=== PATIENT | female | born 1945 | race Caucasian/White ===

== ENCOUNTER → 2017-10-01 | Outpatient (CLI) | payer MEDICARE ==
--- NOTE | 2017-10-02 11:38 | MM ---
Reason for exam: screening (asymptomatic). Last mammogram was performed 1 year and 3 months ago. History: Patient is postmenopausal. Benign left mammotome panel of the left breast, March 24, 2005. Took hormonal contraceptives for 12 years beginning at age 21. Physical Findings: A clinical breast exam by your physician is recommended on an annual basis and results should be correlated with mammographic findings. MG 3D Screening Mammo W/Cad Bilateral CC and MLO view(s) were taken. Prior study comparison: June 20, 2016, bilateral MG 3d screening mammo w/cad. March 30, 2015, bilateral MG screening mammo w CAD. There are scattered fibroglandular densities. Previous mammotome biopsy in the left breast. No significant changes when compared with prior studies. ASSESSMENT: Benign, BI-RAD 2 RECOMMENDATION: Routine screening mammogram of both breasts in 1 year.
== END | disposition home or self-care (01) ==
LOC: RADMAMWWP 10:37
PROVIDERS: ATTEND Internal Medicine
DX: Z12.31 Encounter for screening mammogram for malignant neoplasm of breast (principal)
CPT/HCPCS: 77063; 77067

== ENCOUNTER → 2019-02-09 | Outpatient (CLI) | payer MEDICARE ==
[2019-02-09 10:57] LABS: Basophils % (A) 1 %; Eosinophils # (A) 0.1 k/uL (0-0.7); Eosinophils % (A) 2 %; HCT 45.2 % (34.0-46.0); HGB 14.5 gm/dL (11.4-16.0); Lymphocytes # (A) 0.6 k/uL (1.0-4.8); Lymphocytes % (A) 11 %; MCH 29.5 pg (25.0-35.0); MCV 92.1 fL (80.0-100.0); Mean Platelet Volume 7.9; Monocytes # (A) 0.3 k/uL (0-1.0); Monocytes % (A) 6 %; Neutrophils # (A) 4.3 k/uL (1.3-7.7); Neutrophils % (A) 80 %; Platelet Count 171 k/uL (150-450); RBC 4.91 m/uL (3.80-5.40); WBC 5.3 k/uL (3.8-10.6)
[2019-02-09 11:11] LABS: Albumin 4.5 g/dL (3.5-5.0); Calcium 9.9 mg/dL (8.4-10.2); Potassium 4.4 mmol/L (3.5-5.1); Total Bilirubin 0.6 mg/dL (0.2-1.3)
[2019-02-09 11:27] LABS: T4, Free (Free Thyroxine) 1.29 ng/dL (0.78-2.19)
--- NOTE | 2019-02-10 13:27 | MM ---
Reason for exam: screening (asymptomatic). Last mammogram was performed 1 year and 4 months ago. History: Patient is postmenopausal. Benign left mammotome panel of the left breast, March 24, 2005. Took hormonal contraceptives for 12 years beginning at age 21. Physical Findings: A clinical breast exam by your physician is recommended on an annual basis and results should be correlated with mammographic findings. MG 3D Screening Mammo W/Cad Bilateral CC and MLO view(s) were taken. Prior study comparison: October 01, 2017, bilateral MG 3d screening mammo w/cad. June 20, 2016, bilateral MG 3d screening mammo w/cad. There are scattered fibroglandular densities. No suspicious abnormality. Left biopsy marker noted. No significant changes when compared with prior studies. ASSESSMENT: Negative, BI-RAD 1 RECOMMENDATION: Routine screening mammogram of both breasts in 1 year.
== END | disposition home or self-care (01) ==
LOC: RADMAMWWP 10:09
PROVIDERS: ATTEND Internal Medicine
DX: Z12.31 Encounter for screening mammogram for malignant neoplasm of breast (principal); Z00.00 Encounter for general adult medical examination without abnormal findings; E55.9 Vitamin D deficiency, unspecified
CPT/HCPCS: 77063; 77067; 80053; 80061; 82306; 84439; 84443; 85025

== ENCOUNTER → 2019-03-09 | Outpatient (CLI) | payer MEDICARE | END | disposition home or self-care (01) | LOC: LABWHC1 11:43 | PROVIDERS: ATTEND Internal Medicine | DX: E55.9 Vitamin D deficiency, unspecified (principal) | CPT/HCPCS: 36415; 82306 ==

== ENCOUNTER → 2020-05-03 | Outpatient (CLI) | payer MEDICARE ==
[2020-05-03 11:26] LABS: Albumin 4.6 g/dL (3.5-5.0); Calcium 9.8 mg/dL (8.4-10.2); Potassium 4.5 mmol/L (3.5-5.1); Total Bilirubin 0.6 mg/dL (0.2-1.3); Total Protein 7.4 g/dL (6.3-8.2)
[2020-05-03 11:42] LABS: T4, Free (Free Thyroxine) 1.48 ng/dL (0.78-2.19)
[2020-05-03 12:05] LABS: Basophils % (A) 1 %; Eosinophils # (A) 0.1 k/uL (0-0.7); Eosinophils % (A) 2 %; HCT 47.6 % (34.0-46.0); HGB 14.8 gm/dL (11.4-16.0); Lymphocytes # (A) 0.8 k/uL (1.0-4.8); Lymphocytes % (A) 14 %; MCH 29.2 pg (25.0-35.0); MCHC 31.1 g/dL (31.0-37.0); MCV 94.1 fL (80.0-100.0); Mean Platelet Volume 8.5; Monocytes # (A) 0.3 k/uL (0-1.0); Monocytes % (A) 6 %; Neutrophils # (A) 4.4 k/uL (1.3-7.7); Neutrophils % (A) 76 %; Platelet Count 186 k/uL (150-450); RBC 5.06 m/uL (3.80-5.40); WBC 5.8 k/uL (3.8-10.6)
--- NOTE | 2020-05-04 14:51 | MM ---
Reason for exam: screening (asymptomatic). Last mammogram was performed 1 year and 3 months ago. History: Patient is postmenopausal. Benign left mammotome panel of the left breast, March 24, 2005. Took hormonal contraceptives for 12 years beginning at age 21. Physical Findings: A clinical breast exam by your physician is recommended on an annual basis and results should be correlated with mammographic findings. MG 3D Screening Mammo W/Cad Bilateral CC and MLO view(s) were taken. Prior study comparison: February 09, 2019, bilateral MG 3d screening mammo w/cad. October 01, 2017, bilateral MG 3d screening mammo w/cad. There are scattered fibroglandular densities. Previous mammotome biopsy in the left breast. No significant changes when compared with prior studies. ASSESSMENT: Benign, BI-RAD 2 RECOMMENDATION: Routine screening mammogram of both breasts in 1 year.
== END | disposition home or self-care (01) ==
LOC: RADMAMWWP 09:05
PROVIDERS: ATTEND Internal Medicine
DX: Z12.31 Encounter for screening mammogram for malignant neoplasm of breast (principal); Z00.00 Encounter for general adult medical examination without abnormal findings; E78.5 Hyperlipidemia, unspecified; I10 Essential (primary) hypertension
CPT/HCPCS: 36415; 77063; 77067; 80053; 84439; 84443; 85025

== ENCOUNTER 2020-11-12 16:25 | Emergency (ER) | payer MEDICARE ==
[2020-11-12 16:39] VITALS: BP 156/76; PULSE 105; RESP 18; TEMP 98.2
[2020-11-12] MEDS ORDERED: LIDOCAINE 1% INJ 10MG/ML (20 ML MDV) SQ ONE (17:01)
--- NOTE | 2020-11-12 17:50 | ED ---
Skin/Abscess/FB HPI - General Chief complaint: Skin/Abscess/Foreign Body Stated complaint: possible insect bite Time Seen by Provider: 11/12/20 16:42 Source: patient Mode of arrival: ambulatory Limitations: no limitations - History of Present Illness Initial comments: Patient is a 74-year-old female presenting to the emergency Department with complaints of a possible insect bite of her right hand. Patient states she was working in her garden when she got done and came into the house, she took off her glove and noticed a spot of blood on her right hand. She states she noticed a single puncture wound in the area, she did wash her hands with soap and water and was applying topical antibiotic. She states she went into the ER that evening, at a different hospital, they put her on Keflex to prevent possible infection. She has been taking Keflex 4 times a day for the last 4 days, she states she came in for reevaluation today because she's been having increased bruising and some mild swelling but spreading on her right hand. She denies any fevers or chills, she denies only pain in one spot on her right hand. She denies any spreading erythema. She is not on blood thinners. She denies any nausea or vomiting. She states she's also been taking Benadryl and Tylenol as needed for any discomfort. She does have history of arthritis in her hands and states she feels like her hands are a little bit more achy than usual. She has no further complaints at this time. - Related Data Previous Rx's Medication Instructions Recorded Cephalexin [Keflex] 500 mg PO Q6HR 5 Days #20 cap 11/12/20 Allergies Allergy/AdvReac Type Severity Reaction Status Date / Time ibuprofen [From Motrin] AdvReac Anaphylaxis Verified 11/12/20 16:39 Penicillins AdvReac Anaphylaxis Verified 11/12/20 16:39 prednisone AdvReac Hallucinati Verified 11/12/20 16:39 ons Review of Systems ROS Statement: Those systems with pertinent positive or pertinent negative responses have been documented in the HPI. ROS Other: All systems not noted in ROS Statement are negative. Past Medical History Past Medical History: COPD, Hyperlipidemia, Hypertension History of Any Multi-Drug Resistant Organisms: None Reported Past Surgical History: Hysterectomy Past Psychological History: No Psychological Hx Reported Smoking Status: Never smoker Past Alcohol Use History: None Reported Past Drug Use History: None Reported General Exam - General Exam Comments Initial Comments: GENERAL: Patient is well-developed and well-nourished. Patient is nontoxic and in no acute distress. HEAD: Atraumatic, normocephalic. EYES: Pupils equal round and reactive to light, extraocular movements intact, sclera anicteric, conjunctiva are normal. Eyelids were unremarkable. ENT: Nares patent, oropharynx clear without exudates. Moist mucous membranes. NECK: Normal range of motion, supple without lymphadenopathy or JVD. LUNGS: Unlabored respirations. Breath sounds clear to auscultation bilaterally and equal. No wheezes rales or rhonchi. HEART: Regular rate and rhythm without murmurs, rubs or gallops. ABDOMEN: Soft, nontender, normoactive bowel sounds. No guarding, no rebound. No masses appreciated. : Deferred MUSCULOSKELETAL: Normal extremities with adequate strength and normal range of motion, no pitting or edema. No clubbing or cyanosis. NEUROLOGICAL: Patient is alert and oriented x 3. Symmetrical smile. Normal speech, normal gait. PSYCH: Normal mood, normal affect. SKIN: Warm, Dry, normal turgor. Patient has some bruising noted to the right hand, spreading into the fingers and into the thumb. There is no erythema of the hand or forearm. She does have a 1 cm cyst like area in between the web space of the first and second digit of the right hand. She states this is a area where she noticed the possible bite. This area is somewhat painful when squeezed in touch. There is no erythema of this, that does not appear to be an abscess. There is no warmth to the hand. She is neurovascular intact. Limitations: no limitations Course Vital Signs 11/12/20 16:35 Temperature 98.2 F Pulse Rate 105 H Respiratory 18 Rate Blood Pressure 156/76 O2 Sat by Pulse 95 Oximetry Procedures - Procedures Initial comment: Patient had a 1 cm cyst like structure between the webspace the first and second digits on the right hand. I did place 2 mL of 1% lidocaine and the cyst, did attempt a needle aspiration of fluid however was unsuccessful. Only blood was obtained. Patient tolerated procedure well. Medical Decision Making - Medical Decision Making Patient is a 74-year-old female here with possible insect bite to the right hand. She's been on Keflex for the last 4 days. No fevers. She does have some abnormal bruising to the right hand some very mild swelling and a 1 cm cyst like area where she was possibly bitten. I did attempt a needle aspiration is area however only blood was obtained. I do not feel like this is an abscess, I also do not feel like this is cellulitis at this time. I do recommend her following up with the manager marketing communication. She states she has seen one in the past and will call them and make an appointment. Also recommended following up with her PCP if she is not able to get into a manager marketing communication relatively soon. She will continue with her Keflex, will add on another 5 days. Return parameters were discussed with the patient she verbalized understanding. She is stable for discharge. She is in agreement with this plan of care. Case was discussed with Dr. Ramirez. Disposition Clinical Impression: Rash of hand, Insect bite of right hand Disposition: HOME SELF-CARE Condition: Stable Instructions (If sedation given, give patient instructions): Insect Bite or St ing (ED) Additional Instructions: Please return to the Emergency Department if symptoms worsen or any other concerns. I recommend continuing with Keflex, I did add on another 5 days. Please follow-up with your regular family doctor as well as manager marketing communication as discussed. Prescriptions: Cephalexin [Keflex] 500 mg PO Q6HR 5 Days #20 cap Is patient prescribed a controlled substance at d/c from ED?: No Referrals: Loan Magaña MD [Primary Care Provider] - 1-2 days Time of Disposition: 17:50
== END 2020-11-12 18:42 | disposition home or self-care (01) ==
LOC: EC 16:25
DX: S60.561A Insect bite (nonvenomous) of right hand, initial encounter (principal); R21 Rash and other nonspecific skin eruption; E78.5 Hyperlipidemia, unspecified; I10 Essential (primary) hypertension; J44.9 Chronic obstructive pulmonary disease, unspecified; Z88.0 Allergy status to penicillin; Z88.6 Allergy status to analgesic agent; Z88.8 Allergy status to other drugs, medicaments and biological substances; W57.XXXA Bitten or stung by nonvenomous insect and other nonvenomous arthropods, initial encounter
CPT/HCPCS: 99282; J2001

== ENCOUNTER → 2021-06-19 | Outpatient (CLI) | payer MEDICARE ==
[2021-06-19 15:04] LABS: Basophils % (A) 1 %; Eosinophils # (A) 0.1 k/uL (0-0.7); Eosinophils % (A) 2 %; HCT 44.3 % (34.0-46.0); HGB 14.5 gm/dL (11.4-16.0); Lymphocytes # (A) 0.7 k/uL (1.0-4.8); Lymphocytes % (A) 15 %; MCH 30.1 pg (25.0-35.0); MCHC 32.7 g/dL (31.0-37.0); MCV 92.1 fL (80.0-100.0); Monocytes # (A) 0.2 k/uL (0-1.0); Monocytes % (A) 5 %; Neutrophils # (A) 3.6 k/uL (1.3-7.7); Neutrophils % (A) 76 %; Platelet Count 167 k/uL (150-450); RBC 4.81 m/uL (3.80-5.40); RDW 12.4 % (11.5-15.5); WBC 4.8 k/uL (3.8-10.6)
[2021-06-19 15:12] LABS: ALT 23 U/L (4-34); AST 26 U/L (14-36); African American GFR (CKD) 75 (>60 ml/min/1.73 sqM); Albumin 4.5 g/dL (3.5-5.0); Albumin/Globulin Ratio 1.7; Alkaline Phosphatase 96 U/L (38-126); Anion Gap 9 mmol/L; Blood Urea Nitrogen 15 mg/dL (7-17); Calcium 9.9 mg/dL (8.4-10.2); Carbon Dioxide 28 mmol/L (22-30); Chloride 103 mmol/L (98-107); Globulin 2.7 g/dL; Glucose 103 mg/dL (74-99); Non-African American GFR(CKD) 65 (>60 ml/min/1.73 sqM); Potassium 4.2 mmol/L (3.5-5.1); Sodium 140 mmol/L (137-145); Total Bilirubin 0.6 mg/dL (0.2-1.3); Total Protein 7.2 g/dL (6.3-8.2)
[2021-06-19 15:28] LABS: T4, Free (Free Thyroxine) 1.71 ng/dL (0.78-2.19)
[2021-06-19 16:36] LABS: Erythrocyte Sedimentation Rate 7 mm/hr (0-20)
[2021-06-20 01:10] LABS: Rheumatoid Factor, Qnt <10 IU/mL (0-15)
--- NOTE | 2021-06-24 12:06 | MM ---
Reason for exam: screening (asymptomatic). Last mammogram was performed 1 year and 2 months ago. History: Patient is postmenopausal. Benign left mammotome panel of the left breast, March 24, 2005. Took hormonal contraceptives for 12 years beginning at age 21. Physical Findings: A clinical breast exam by your physician is recommended on an annual basis and results should be correlated with mammographic findings. MG 3D Screening Mammo W/Cad Bilateral CC and MLO view(s) were taken. Prior study comparison: May 03, 2020, bilateral MG 3d screening mammo w/cad. February 09, 2019, bilateral MG 3d screening mammo w/cad. There are scattered fibroglandular densities. Previous mammotome biopsy in the left breast. No significant changes when compared with prior studies. ASSESSMENT: Negative, BI-RAD 1 RECOMMENDATION: Routine screening mammogram of both breasts in 1 year.
== END | disposition home or self-care (01) ==
LOC: RADMAMWWP 13:36
PROVIDERS: ATTEND Internal Medicine
DX: Z00.00 Encounter for general adult medical examination without abnormal findings (principal); Z12.31 Encounter for screening mammogram for malignant neoplasm of breast; Z78.0 Asymptomatic menopausal state
CPT/HCPCS: 77063; 77067; 80053; 80061; 84439; 84443; 85025; 85652; 86038; 86431

== ENCOUNTER → 2022-06-23 | Outpatient (CLI) | payer MEDICARE ==
--- NOTE | 2022-06-24 18:38 | MM ---
Reason for Exam: Screening (asymptomatic). Last screening mammogram was performed 12 month(s) ago. Patient History: Menarche at age 11. First Full-Term at age 22. Hysterectomy at age 34. Postmenopausal. Hormonal Contraceptives for 12 years from age 21 until age 34. 03/24/2005, Benign Core Biopsy on the left side. Risk Values: Faby 5 year model risk: 2.1%. NCI Lifetime model risk: 4.4%. Prior Study Comparison: 02/09/2019 Bilateral Screening Mammogram, [facility]. 05/03/2020 Bilateral Screening Mammogram, [facility]. 06/19/2021 Bilateral Screening Mammogram, [facility]. Tissue Density: There are scattered fibroglandular densities. Findings: Analyzed By CAD. Microclip lateral left breast from prior biopsy. There is no suspicious group of microcalcifications or new suspicious mass in either breast. Overall Assessment: Negative, BI-RAD 1 Management: Screening Mammogram of both breasts in 1 year. 1. Patient should continue monthly self breast exams. 2. A clinical breast exam by your physician is recommended on an annual basis. 3. This exam should not preclude additional follow-up of suspicious palpable abnormalities. Electronically signed and approved by: Elise Bernal M.D. Radiologist
== END | disposition home or self-care (01) ==
LOC: RADMAMWWP 14:39
PROVIDERS: ATTEND Family Medicine
DX: Z12.31 Encounter for screening mammogram for malignant neoplasm of breast (principal); Z78.0 Asymptomatic menopausal state
CPT/HCPCS: 77063; 77067

== ENCOUNTER → 2023-05-22 | Outpatient (CLI) | payer MEDICARE ==
[2023-05-22 16:19] LABS: HCT 43.5 % (37.2-46.3); HGB 13.6 g/dL (12.0-15.0); MCHC 31.3 g/dL (32.0-37.0); MCV 89.7 FL (80.0-97.0); Mean Platelet Volume 11.6 FL (9.5-12.2); NRBC Per 100 WBC 0 X 10*3/uL (0.00-0.01); Platelet Count 191 X 10*3/uL (140-440); RBC 4.85 X 10*6/uL (4.10-5.20); RDW 12.5 % (11.5-14.5); WBC 5.94 X 10*3/uL (4.50-10.00)
[2023-05-22 17:06] LABS: ALT 17 U/L (8-44); AST 20 U/L (13-35); Blood Urea Nitrogen 19.8 mg/dL (9.0-27.0); Carbon Dioxide 26.1 mmol/L (21.6-31.8); Chloride 103 mmol/L (96-109); Chol/HDL Ratio 1.76 Ratio; Glucose 102 mg/dL (70-110); Potassium 3.9 mmol/L (3.5-5.5); Sodium 142 mmol/L (135-145); VLDL Calculation 15.02 mg/dL (5.00-40.00)
== END | disposition home or self-care (01) ==
LOC: LABWHC1 08:57
PROVIDERS: ATTEND Family Medicine
DX: I10 Essential (primary) hypertension (principal); E78.5 Hyperlipidemia, unspecified
CPT/HCPCS: 36415; 80048; 80061; 82306; 83036; 84443; 84450; 84460; 85027

== ENCOUNTER → 2023-05-30 | Outpatient (CLI) | payer MEDICARE ==
[2023-05-30 23:03] LABS: BUN/Creat Ratio 14.64 Ratio (12.00-20.00); Blood Urea Nitrogen 16.1 mg/dL (9.0-27.0); Calcium 10.1 mg/dL (8.7-10.3); Carbon Dioxide 29.8 mmol/L (21.6-31.8); Chloride 102 mmol/L (96-109); Glucose 94 mg/dL (70-110); Potassium 4.5 mmol/L (3.5-5.5); Sodium 142 mmol/L (135-145)
== END | disposition home or self-care (01) ==
LOC: LABWHC1 09:21
PROVIDERS: ATTEND Family Medicine
DX: R94.4 Abnormal results of kidney function studies (principal)
CPT/HCPCS: 36415; 80048

== ENCOUNTER → 2023-06-24 | Outpatient (CLI) | payer MEDICARE ==
[2023-06-24 15:13] LABS: BUN/Creat Ratio 16.45 Ratio (12.00-20.00); Blood Urea Nitrogen 18.1 mg/dL (9.0-27.0); Calcium 10.1 mg/dL (8.7-10.3); Carbon Dioxide 26.4 mmol/L (21.6-31.8); Chloride 102 mmol/L (96-109); Glucose 99 mg/dL (70-110); Potassium 4.1 mmol/L (3.5-5.5); Sodium 141 mmol/L (135-145)
--- NOTE | 2023-06-29 13:57 | MM ---
Reason for Exam: Screening (asymptomatic). Last screening mammogram was performed 12 month(s) ago. Patient History: Menarche at age 11. First Full-Term at age 22. Hysterectomy at age 34. Postmenopausal. Hormonal Contraceptives for 12 years from age 21 until age 34. 03/24/2005, Benign Core Biopsy on the left side. Risk Values: Faby 5 year model risk: 2.0%. NCI Lifetime model risk: 4.2%. Prior Study Comparison: 05/03/2020 Bilateral Screening Mammogram, [facility]. 06/19/2021 Bilateral Screening Mammogram, [facility]. 06/23/2022 Bilateral MG 3D screening mammo w/cad, [facility]. Tissue Density: There are scattered fibroglandular densities. Findings: Analyzed By CAD. There is no suspicious group of microcalcifications or new suspicious mass in either breast. Overall Assessment: Negative, BI-RAD 1 Management: Screening Mammogram of both breasts in 1 year. . Patient should continue monthly self-breast exams. A clinical breast exam by your physician is recommended on an annual basis. This exam should not preclude additional follow-up of suspicious palpable abnormalities. Note on Faby scores and lifetime risk: 1. A Faby score greater than 3% is considered moderate risk. If this is the case, consider specialist referral to assess eligibility for a risk reducing agent. 2. If overall lifetime risk for the development of breast cancer is 20% or higher, the patient may qualify for future screening with alternating mammogram and breast MRI. Electronically signed and approved by: Elise Bernal M.D. Radiologist
== END | disposition home or self-care (01) ==
LOC: RADMAMWWP 10:25
PROVIDERS: ATTEND Family Medicine
DX: Z12.31 Encounter for screening mammogram for malignant neoplasm of breast (principal); R94.4 Abnormal results of kidney function studies; Z78.0 Asymptomatic menopausal state
CPT/HCPCS: 77063; 77067; 80048

== ENCOUNTER 2023-07-01 16:43 | Emergency (ER) | payer MEDICARE ==
[2023-07-01] MEDS ORDERED: ACET/COD 300 MG/30 MG STARTER PACK 6 TAB BTL PO STA (17:09)
[2023-07-01 17:36] LABS: Basophils % (A) 1 %; Eosinophils # (A) 0.1 k/uL (0-0.7); Eosinophils % (A) 2 %; HCT 42.2 % (34.0-46.0); HGB 13.9 gm/dL (11.4-16.0); Lymphocytes # (A) 0.8 k/uL (1.0-4.8); Lymphocytes % (A) 14 %; MCH 29.1 pg (25.0-35.0); MCHC 32.9 g/dL (31.0-37.0); MCV 88.6 fL (80.0-100.0); Mean Platelet Volume 8.1; Monocytes # (A) 0.3 k/uL (0-1.0); Monocytes % (A) 6 %; Neutrophils # (A) 4.2 k/uL (1.3-7.7); Neutrophils % (A) 76 %; Platelet Count 179 k/uL (150-450); RBC 4.76 m/uL (3.80-5.40); RDW 12.6 % (11.5-15.5); WBC 5.5 k/uL (3.8-10.6)
[2023-07-01 17:42] LABS: ALT 20 U/L (4-34); AST 27 U/L (14-36); African American GFR (CKD) 48 (>60 ml/min/1.73 sqM); Albumin 4.3 g/dL (3.5-5.0); Alkaline Phosphatase 116 U/L (38-126); Anion Gap 14 mmol/L; Blood Urea Nitrogen 21 mg/dL (7-17); Calcium 9.7 mg/dL (8.4-10.2); Carbon Dioxide 24 mmol/L (22-30); Chloride 99 mmol/L (98-107); Glucose 96 mg/dL (74-99); Non-African American GFR(CKD) 41 (>60 ml/min/1.73 sqM); Sodium 137 mmol/L (137-145); Total Bilirubin 0.5 mg/dL (0.2-1.3)
--- NOTE | 2023-07-01 17:42 | ED ---
General Adult HPI - General Chief complaint: Neuro Symptoms/Deficit Stated complaint: Neuro symptoms Time Seen by Provider: 07/01/23 16:43 Source: patient, EMS, RN notes reviewed, old records reviewed Mode of arrival: EMS Limitations: no limitations - History of Present Illness Initial comments: This is a 77-year-old female female who presents emergency Department complaining that at about 2:45 she started having headache and she took some Tylenol and the headache went away and now there is only a very slight headache on the left side. Patient states she got anxious about the headache and she started having some tingling across her lip on both sides is some tingling in both of her hands. Patient states all the tingling has resolved and it resolved rather quickly. Patient denies any numbness or weakness. Patient denies any chest pain or difficulty breathing. Patient denies any fever chills or cough. Patient denies any abdominal pain patient denies nausea vomiting diarrhea. Patient states the headache is a 1 out of 10 at this time. - Related Data Home Medications Medication Instructions Recorded Confirmed Albuterol Nebulized [Ventolin 2.5 mg INHALATION RT-QID 08/01/22 08/01/22 Nebulized] Albuterol Sulfate [Albuterol 2 puff PO RT-QID PRN 08/01/22 08/01/22 Sulfate Hfa] Aspirin 81 mg PO DAILY 08/01/22 08/01/22 Ferrous Sulfate [Iron (65 MG 325 mg PO DAILY 08/01/22 08/01/22 Elemental)] Fluticasone Nasal [place] [Flonase 2 spray EA NOSTRIL DAILY 08/01/22 08/01/22 Nasal [place]] Fluticasone Propion/Salmeterol 1 puff INHALATION RT-BID 08/01/22 08/01/22 [Advair 250-50 Diskus] Pantoprazole [Protonix] 40 mg PO DAILY 08/01/22 08/01/22 amLODIPine [Norvasc] 10 mg PO DAILY 08/01/22 08/01/22 Previous Rx's Medication Instructions Recorded Atorvastatin [Lipitor] 10 mg PO HS #30 tab 08/02/22 Chlorthalidone 25 mg PO DAILY #30 tablet 08/02/22 Losartan Potassium [Cozaar] 100 mg PO HS #30 tab 08/02/22 carvediloL [Coreg] 3.125 mg PO BID #60 tablet 08/02/22 Allergies Allergy/AdvReac Type Severity Reaction Status Date / Time cefuroxime Allergy Rash/Hives Verified 07/01/23 16:54 clarithromycin [From Biaxin] Allergy Unknown Verified 07/01/23 16:54 latex Allergy Unknown Verified 07/01/23 16:54 milk Allergy Unknown Verified 07/01/23 16:54 raspberry Allergy Unknown Verified 07/01/23 16:54 Sulfa (Sulfonamide Allergy Unknown Verified 07/01/23 16:54 Antibiotics) cephalexin [From Keflex] AdvReac Unknown Verified 07/01/23 16:55 ibuprofen [From Motrin] AdvReac Anaphylaxis Verified 07/01/23 16:54 Penicillins AdvReac Anaphylaxis Verified 07/01/23 16:54 prednisone AdvReac Hallucinati Verified 07/01/23 16:54 ons Review of Systems ROS Statement: Those systems with pertinent positive or pertinent negative responses have been documented in the HPI. ROS Other: All systems not noted in ROS Statement are negative. Past Medical History Past Medical History: COPD, Hyperlipidemia, Hypertension Additional Past Medical History / Comment(s): Blood transfusion for anemia, CVA 1994 History of Any Multi-Drug Resistant Organisms: None Reported Past Surgical History: Hysterectomy Past Psychological History: No Psychological Hx Reported Smoking Status: Former smoker Past Alcohol Use History: None Reported Past Drug Use History: None Reported General Exam - General Exam Comments Initial Comments: GENERAL: Patient is well-developed and well-nourished. Patient is nontoxic and well- hydrated and is in no acute distress. ENT: Neck is soft and supple. No significant lymphadenopathy is noted. Oropharynx is clear. Moist mucous membranes. Neck has full range of motion without eliciting any pain. EYES: The sclera were anicteric and conjunctiva were pink and moist. Extraocular movements were intact and pupils were equal round and reactive to light. Eyelids were unremarkable. PULMONARY: Unlabored respirations. Good breath sounds bilaterally. No audible rales rhonchi or wheezing was noted. CARDIOVASCULAR: There is a regular rate and rhythm without any murmurs gallops or rubs. ABDOMEN: Soft and nontender with normal bowel sounds. SKIN: Skin is clear with no lesions or rashes and otherwise unremarkable. NEUROLOGIC: Patient is alert and oriented x3. Cranial nerves II through XII are grossly intact. Motor and sensory are also intact. Normal speech, volume and content. Symmetrical smile. Patient's NIH is 0 MUSCULOSKELETAL: Normal extremities with adequate strength and full range of motion. No lower extremity swelling or edema. No calf tenderness. LYMPHATICS: No significant lymphadenopathy is noted PSYCHIATRIC: Normal psychiatric evaluation. Limitations: no limitations Course Vital Signs 07/01/23 16:46 Temperature 97.6 F Pulse Rate 93 Respiratory 20 Rate Blood Pressure 149/69 O2 Sat by Pulse 94 L Oximetry Medical Decision Making - Medical Decision Making Was pt. sent in by a medical professional or institution (, MARKUS, RECEIVING COORDINATOR, urgent care, hospital, or alf...) When possible be specific @ -No Did you speak to anyone other than the patient for history (EMS, parent, family, police, friend...)? What history was obtained from this source @ -No Did you review nursing and triage notes (agree or disagree)? Why? @ -I reviewed and agree with nursing and triage notes Were old charts reviewed (outside hosp., previous admission, EMS record, old EKG, old radiological studies, urgent care reports/EKG's, alf records)? Report findings @ -No old charts were reviewed Differential Diagnosis (chest pain, altered mental status, abdominal pain women, abdominal pain men, vaginal bleeding, weakness, fever, dyspnea, syncope, headache, dizziness, GI bleed, back pain, seizure, CVA, palpatations, mental health, musculoskeletal)? @ -not applicable EKG interpreted by me (3pts min.). @ -As above X-rays interpreted by me (1pt min.). @ -None done CT interpreted by me (1pt min.). @ -None done U/S interpreted by me (1pt. min.). @ -None done What testing was considered but not performed or refused? (CT, X-rays, U/S, labs)? Why? @ -None What meds were considered but not given or refused? Why? @ -None Did you discuss the management of the patient with other professionals (professionals i.e. MARKUS Chen, RECEIVING COORDINATOR, lab, RT, psych nurse, high school social studies tutor, digital sales planner, teacher, minesweeping officer, outsole caser)? Give summary @ -No Was smoking cessation discussed for >3mins.? @ -No Was critical care preformed (if so, how long)? @ -No Were there social determinants of health that impacted care today? How? (Homelessness, low income, unemployed, alcoholism, drug addiction, transportation, low edu. Level, literacy, decrease access to med. care, nursing home, rehab)? @ -No Was there de-escalation of care discussed even if they declined (Discuss DNR or withdrawal of care, Hospice)? DNR status @ -No What co-morbidities impacted this encounter? (DM, HTN, Smoking, COPD, CAD, Cancer, CVA, ARF, Chemo, Hep., AIDS, mental health diagnosis, sleep apnea, morbid obesity)? @ -None Was patient admitted / discharged? Hospital course, mention meds given and route, prescriptions, significant lab abnormalities, going to OR and other pertinent info. @ -Back to reevaluate the patient had no complaints at all at this time patient was feeling better and she was no longer anxious and she no longer had a headache. Patient's lab work came back within normal range patient be discharged home. Undiagnosed new problem with uncertain prognosis? @ -No Drug Therapy requiring intensive monitoring for toxicity (Heparin, Nitro, Insulin, Cardizem)? @ -No Were any procedures done? @ -No Diagnosis/symptom? @ -Anxiety Acute, or Chronic, or Acute on Chronic? @ -Acute Uncomplicated (without systemic symptoms) or Complicated (systemic symptoms)? @ -Uncomplicated Side effects of treatment? @ -No Exacerbation, Progression, or Severe Exacerbation? @ -No Poses a threat to life or bodily function? How? (Chest pain, USA, MS, pneumonia, PE, COPD, DKA, ARF, appy, cholecystitis, CVA, Diverticulitis, Homicidal, Suicidal, threat to staff... and all critical care pts) @ -No Diagnosis/symptom? @ -Cephalgia Acute, or Chronic, or Acute on Chronic? @ -Acute Uncomplicated (without systemic symptoms) or Complicated (systemic symptoms)? @ -Uncomplicated Side effects of treatment? @ -none Exacerbation, Progression, or Severe Exacerbation] @ -No Poses a threat to life or bodily function? @ -no - Lab Data Result diagrams: 07/01/23 17:18 07/01/23 17:18 Lab Results 07/01/23 07/01/23 Range/Units 17:18 17:18 WBC 5.5 (3.8-10.6) k/uL RBC 4.76 (3.80-5.40) m/uL Hgb 13.9 (11.4-16.0) gm/dL Hct 42.2 (34.0-46.0) % MCV 88.6 (80.0-100.0) fL MCH 29.1 (25.0-35.0) pg MCHC 32.9 (31.0-37.0) g/dL RDW 12.6 (11.5-15.5) % Plt Count 179 (150-450) k/uL MPV 8.1 Neutrophils % 76 % Lymphocytes % 14 % Monocytes % 6 % Eosinophils % 2 % Basophils % 1 % Neutrophils # 4.2 (1.3-7.7) k/uL Lymphocytes # 0.8 L (1.0-4.8) k/uL Monocytes # 0.3 (0-1.0) k/uL Eosinophils # 0.1 (0-0.7) k/uL Basophils # 0.0 (0-0.2) k/uL Sodium 137 (137-145) mmol/L Potassium 4.0 (3.5-5.1) mmol/L Chloride 99 (98-107) mmol/L Carbon Dioxide 24 (22-30) mmol/L Anion Gap 14 mmol/L BUN 21 H (7-17) mg/dL Creatinine 1.26 H (0.52-1.04) mg/dL Est GFR (CKD-EPI)AfAm 48 (>60 ml/min/1.73 sqM) Est GFR (CKD-EPI)NonAf 41 (>60 ml/min/1.73 sqM) Glucose 96 (74-99) mg/dL Calcium 9.7 (8.4-10.2) mg/dL Total Bilirubin 0.5 (0.2-1.3) mg/dL AST 27 (14-36) U/L ALT 20 (4-34) U/L Alkaline Phosphatase 116 (38-126) U/L Total Protein 7.0 (6.3-8.2) g/dL Albumin 4.3 (3.5-5.0) g/dL Disposition Clinical Impression: Cephalgia, Anxiety Disposition: HOME SELF-CARE Condition: Good Instructions (If sedation given, give patient instructions): Anxiety (ED), General Headache (ED) Is patient prescribed a controlled substance at d/c from ED?: No Referrals: Nitin Wing DO [Primary Care Provider] - 1-2 days Time of Disposition: 18:07
[2023-07-01 18:59] VITALS: BP 158/80; PULSE 92; RESP 18; TEMP 97.5
== END 2023-07-01 18:54 | disposition home or self-care (01) ==
LOC: EC 16:43
DX: R51.9 Headache, unspecified (principal); F41.9 Anxiety disorder, unspecified; I10 Essential (primary) hypertension; J44.9 Chronic obstructive pulmonary disease, unspecified; Z79.51 Long term (current) use of inhaled steroids; Z79.899 Other long term (current) drug therapy; Z87.891 Personal history of nicotine dependence; Z88.0 Allergy status to penicillin; Z88.2 Allergy status to sulfonamides; Z88.6 Allergy status to analgesic agent; Z88.8 Allergy status to other drugs, medicaments and biological substances; Z88.1 Allergy status to other antibiotic agents; Z91.040 Latex allergy status; Z91.011 Allergy to milk products; Z91.018 Allergy to other foods
CPT/HCPCS: 36415; 80053; 85025; 99283

== ENCOUNTER → 2023-07-11 | Outpatient (CLI) | payer MEDICARE ==
[2023-07-11 23:09] LABS: BUN/Creat Ratio 10.55 Ratio (12.00-20.00); Blood Urea Nitrogen 11.6 mg/dL (9.0-27.0); Calcium 9.8 mg/dL (8.7-10.3); Chloride 102 mmol/L (96-109); Glucose 98 mg/dL (70-110); Potassium 4.2 mmol/L (3.5-5.5); Sodium 140 mmol/L (135-145)
== END | disposition home or self-care (01) ==
LOC: LABWHC1 11:23
PROVIDERS: ATTEND Family Medicine
DX: R94.4 Abnormal results of kidney function studies (principal)
CPT/HCPCS: 36415; 80048

== ENCOUNTER 2023-10-19 16:29 | Inpatient (IN) | payer MEDICARE ==
--- NOTE | 2023-10-19 18:03 | ED ---
SOB HPI - General Chief Complaint: Shortness of Breath Stated Complaint: Pneumonia Time Seen by Provider: 10/19/23 17:58 Source: patient, RN notes reviewed, old records reviewed Mode of arrival: ambulatory Limitations: no limitations - History of Present Illness Initial Comments: This is a 77-year-old female to the ER for evaluation today. Patient presents today for evaluation regards to severe shortness of breath increased cough and congestion sputum production weakness fevers not feeling well. Patient does suffer from COPD and presents from urgent care for evaluation of hypoxia. Patient has severe and significant shortness of breath here in the ER MD Complaint: shortness of breath, cough, "asthma attack", anxiety -: days(s) Severity: severe Severity scale (1-10): 9 Consistency: constant Improves With: nothing Worsens With: nothing Known History Of: COPD, asthma Context: recent URI, anxiety, recent illness Associated Symptoms: chest pain, cough, sputum production Treatments Prior to Arrival: oxygen, bronchodilator - Related Data Home Medications Medication Instructions Recorded Confirmed Albuterol Nebulized [Ventolin 2.5 mg INHALATION RT-QID PRN 08/01/22 10/28/23 Nebulized] Albuterol Sulfate [Albuterol 2 puff PO RT-QID PRN 08/01/22 10/28/23 Sulfate Hfa] Aspirin 81 mg PO DAILY 08/01/22 10/28/23 Fluticasone Nasal [place] [Flonase 2 spray EA NOSTRIL DAILY 08/01/22 10/28/23 Nasal [place]] Pantoprazole [Protonix] 40 mg PO DAILY 08/01/22 10/28/23 amLODIPine [Norvasc] 10 mg PO DAILY 08/01/22 10/28/23 Chlorthalidone 25 mg PO Q48H 10/19/23 10/28/23 Cholecalciferol (Vitamin D3) 50 mcg PO DAILY 10/19/23 10/28/23 [Vitamin D3 (50 Mcg = 2000 Iu)] carvediloL [Coreg] 6.25 mg PO BID-W/MEALS 10/19/23 10/28/23 Previous Rx's Medication Instructions Recorded Atorvastatin [Lipitor] 10 mg PO HS #30 tab 08/02/22 Fluticasone/Vilanterol [Breo 1 each IH BID #1 each 10/20/23 Ellipta 100-25 Mcg Inhalr] Levofloxacin [Levaquin] 500 mg PO DAILY 5 Days #5 tab 10/20/23 Losartan [Cozaar] 50 mg PO HS #30 tab 10/26/23 Allergies Allergy/AdvReac Type Severity Reaction Status Date / Time cefuroxime Allergy Rash/Hives Verified 10/28/23 08:13 clarithromycin [From Biaxin] Allergy Anaphylaxis, Verified 10/28/23 08:13 hives ibuprofen [From Motrin] Allergy Anaphylaxis, Verified 10/28/23 08:13 hives latex Allergy Rash/Hives Verified 10/28/23 08:13 milk Allergy Rash/Hives Verified 10/28/23 08:13 raspberry Allergy Rash/Hives Verified 10/28/23 08:13 Sulfa (Sulfonamide Allergy Anaphylaxis Verified 10/28/23 08:13 Antibiotics) cephalexin [From Keflex] AdvReac none, per Verified 10/28/23 08:13 patient Penicillins AdvReac Anaphylaxis, Verified 10/28/23 08:13 hives prednisone AdvReac Hallucinati Verified 10/28/23 08:13 ons Review of Systems ROS Statement: Those systems with pertinent positive or pertinent negative responses have been documented in the HPI. ROS Other: All systems not noted in ROS Statement are negative. Past Medical History Past Medical History: COPD, Hyperlipidemia, Hypertension Additional Past Medical History / Comment(s): Blood transfusion for anemia, CVA 1994 History of Any Multi-Drug Resistant Organisms: None Reported Past Surgical History: Hysterectomy Past Psychological History: No Psychological Hx Reported Smoking Status: Former smoker Past Alcohol Use History: None Reported Past Drug Use History: None Reported General Exam Limitations: no limitations General appearance: alert, anxious, in distress Head exam: Present: atraumatic, normocephalic, normal inspection Eye exam: Present: normal appearance, PERRL, EOMI. Absent: scleral icterus, conjunctival injection, periorbital swelling ENT exam: Present: normal exam, mucous membranes moist Neck exam: Present: normal inspection. Absent: tenderness, meningismus, lymphadenopathy Respiratory exam: Present: respiratory distress, wheezes. Absent: rales, rhonchi, stridor Cardiovascular Exam: Present: regular rate, normal rhythm, normal heart sounds. Absent: systolic murmur, diastolic murmur, rubs, gallop, clicks GI/Abdominal exam: Present: soft, normal bowel sounds. Absent: distended, tenderness, guarding, rebound, rigid Extremities exam: Present: normal inspection, full ROM, normal capillary refill. Absent: tenderness, pedal edema, joint swelling, calf tenderness Back exam: Present: normal inspection Neurological exam: Present: alert, oriented X3, CN II-XII intact Psychiatric exam: Present: normal affect, normal mood Skin exam: Present: warm, dry, intact, normal color. Absent: rash Course Vital Signs 10/19/23 10/19/23 10/19/23 16:42 18:02 18:24 Temperature 98.9 F Pulse Rate 99 87 Respiratory 20 24 18 Rate Blood Pressure 134/83 140/81 O2 Sat by Pulse 91 L 96 Oximetry 10/19/23 10/19/23 10/19/23 18:32 18:41 21:33 Temperature Pulse Rate 82 77 80 Respiratory 20 Rate Blood Pressure 128/73 O2 Sat by Pulse 95 Oximetry 10/19/23 10/19/23 10/19/23 21:38 21:47 23:46 Temperature Pulse Rate 79 83 84 Respiratory 18 Rate Blood Pressure 104/55 O2 Sat by Pulse 97 Oximetry 10/20/23 10/20/23 10/20/23 01:29 02:46 06:17 Temperature Pulse Rate 84 93 93 Respiratory 18 18 20 Rate Blood Pressure 130/69 120/66 127/69 O2 Sat by Pulse 100 93 L 92 L Oximetry 10/20/23 10/20/23 10/20/23 08:34 08:48 09:00 Temperature Pulse Rate 98 96 76 Respiratory 22 Rate Blood Pressure 124/78 O2 Sat by Pulse 93 L 94 L Oximetry 10/20/23 10/20/23 10/20/23 10:00 11:00 12:00 Temperature Pulse Rate 78 98 76 Respiratory 22 20 20 Rate Blood Pressure 143/88 156/74 152/90 O2 Sat by Pulse 95 92 L 91 L Oximetry 10/20/23 10/20/23 10/20/23 13:00 13:53 14:00 Temperature Pulse Rate 78 106 H 76 Respiratory 22 20 Rate Blood Pressure 162/124 162/110 O2 Sat by Pulse 93 L 100 Oximetry 10/20/23 10/20/23 10/20/23 14:02 15:00 16:00 Temperature Pulse Rate 104 H 82 87 Respiratory 22 22 Rate Blood Pressure 162/124 160/106 O2 Sat by Pulse 96 96 Oximetry 10/20/23 10/20/23 10/20/23 16:27 16:39 17:00 Temperature Pulse Rate 100 104 H Respiratory 22 Rate Blood Pressure 162/124 O2 Sat by Pulse 96 Oximetry 10/20/23 10/20/23 10/20/23 20:56 21:18 21:29 Temperature Pulse Rate 93 98 90 Respiratory 18 Rate Blood Pressure 153/82 O2 Sat by Pulse 92 L Oximetry - Reevaluation(s) Reevaluation #1: 10/19/23 23:10 Medical records reviewed Reevaluation #2: 10/19/23 23:10 Patient symptoms relatively unchanged Reevaluation #3: 10/19/23 23:10 Patient informed of results and questions have been answered Reevaluation #4: Was pt. sent in by a medical professional or institution (, [facility], OPERATIONS PROFESSIONAL, urgent care, hospital, or alf...) When possible be specific @ -no Did you speak to anyone other than the patient for history (EMS, parent, family, police, friend...)? What history was obtained from this source @ -no Did you review nursing and triage notes (agree or disagree)? Why? @ -agree Are old charts reviewed (outside hosp., previous admission, EMS record, old EKG, old radiological studies, urgent care reports/EKG's, alf records)? Report findings @ -yes Differential Diagnosis (chest pain, altered mental status, abdominal pain women, abdominal pain men, vaginal bleeding, weakness, fever, dyspnea, syncope, headache, dizziness, GI bleed, back pain, seizure, CVA, palpatations, mental health, musculoskeletal)? @ -prior EKG interpreted by me (3pts min.). @ -yes X-rays interpreted by me (1pt min.). @ -yes positive for pneumonia CT interpreted by me (1pt min.). @ -no U/S interpreted by me (1pt. min.). @ -no What testing was considered but not performed or refused? (CT, X-rays, U/S, labs)? Why? @ -none What meds were considered but not given or refused? Why? @ -none Did you discuss the management of the patient with other professionals (prof essionals i.e. , [facility], OPERATIONS PROFESSIONAL, lab, RT, psych nurse, social science manager, care program director, teacher, bank secrecy act officer, human services case manager)? Give summary @ -no Was smoking cessation discussed for >3mins.? @ -no Was critical care preformed (if so, how long)? @ -yes31 Were there social determinants of health that impacted care today? How? (Homelessness, low income, unemployed, alcoholism, drug addiction, transportation, low edu. Level, literacy, decrease access to med. care, longterm, rehab)? @ -none Was there de-escalation of care discussed even if they declined (Discuss DNR or withdrawal of care, Hospice)? DNR status @ -no What co-morbidities impacted this encounter? (DM, HTN, Smoking, COPD, CAD, Cancer, CVA, ARF, Chemo, Hep., AIDS, mental health diagnosis, sleep apnea, morbid obesity)? @ -none Was patient admitted / discharged? Hospital course, mention meds given and route, prescriptions, significant lab abnormalities, going to OR and other pertinent info. @ - 77 female to ER for evaluation of significant COPD exacerbation with shortness of breath cough and congestion. Patient will be admitted for further evaluation and monitoring monitoring of hypoxia and IV antibiotics Admitted Undiagnosed new problem with uncertain prognosis? @ -no Drug Therapy requiring intensive monitoring for toxicity (Heparin, Nitro, Insulin, Cardizem)? @ -no Were any procedures done? @ -no Diagnosis/symptom? @ -Respiratory distress with pneumonia, respiratory failure and hypoxia Acute, or Chronic, or Acute on Chronic? @ -Acute Uncomplicated (without systemic symptoms) or Complicated (systemic symptoms)? @ -Complicated Side effects of treatment? @ -no Exacerbation, Progression, or Severe Exacerbation? @ -exacerbation Poses a threat to life or bodily function? How? (Chest pain, [place], [place], pneumonia, PE, COPD, DKA, ARF, appy, cholecystitis, CVA, Diverticulitis, Homicidal, Suicidal, threat to staff... and all critical care pts) @ -yes with significant respiratory distress Reevaluation #5: Differential Dyspnea: Coronary syndrome, arrhythmia, tamponade, asthma, COPD, pulmonary embolism, pneumonia, pneumothorax, pulmonary effusion, anaphylaxis, diabetic ketoacidosis, flailed chest, pulmonary contusion, diaphragmatic rupture, anemia, neuromuscular, this is not meant to be an all-inclusive list. - Consultations Consultation #1: Spoke with [facility] who agrees to admit this patient Medical Decision Making - Medical Decision Making 77 female to ER for evaluation of significant COPD exacerbation with shortness of breath cough and congestion. Patient will be admitted for further evaluation and monitoring monitoring of hypoxia and IV antibiotics - Lab Data Result diagrams: 10/19/23 18:14 10/25/23 05:15 Lab Results 10/19/23 10/19/23 10/19/23 Range/Units 18:14 18:14 18:14 WBC 8.4 (3.8-10.6) k/uL RBC 4.68 (3.80-5.40) m/uL Hgb 13.4 (11.4-16.0) gm/dL Hct 41.9 (34.0-46.0) % MCV 89.4 (80.0-100.0) fL MCH 28.6 (25.0-35.0) pg MCHC 32.0 (31.0-37.0) g/dL RDW 13.1 (11.5-15.5) % Plt Count 189 (150-450) k/uL MPV 8.8 Neutrophils % 85 % Lymphocytes % 8 % Monocytes % 5 % Eosinophils % 2 % Basophils % 0 % Neutrophils # 7.1 (1.3-7.7) k/uL Lymphocytes # 0.6 L (1.0-4.8) k/uL Monocytes # 0.4 (0-1.0) k/uL Eosinophils # 0.1 (0-0.7) k/uL Basophils # 0.0 (0-0.2) k/uL PT 10.1 (10.0-12.5) sec INR 0.9 (<1.2) APTT 27.2 (22.0-30.0) sec D-Dimer 0.48 (<0.60) mg/L FEU Sodium 138 (137-145) mmol/L Potassium 3.9 (3.5-5.1) mmol/L Chloride 102 (98-107) mmol/L Carbon Dioxide 27 (22-30) mmol/L Anion Gap 9 mmol/L BUN 16 (7-17) mg/dL Creatinine 0.96 (0.52-1.04) mg/dL Est GFR (CKD-EPI)AfAm 67 (>60 ml/min/1.73 sqM) Est GFR (CKD-EPI)NonAf 58 (>60 ml/min/1.73 sqM) Glucose 108 H (74-99) mg/dL Plasma Lactic Acid [place] (0.7-2.0) mmol/L Calcium 9.8 (8.4-10.2) mg/dL Magnesium 1.9 (1.6-2.3) mg/dL Total Bilirubin 0.8 (0.2-1.3) mg/dL AST 21 (14-36) U/L ALT 17 (4-34) U/L Alkaline Phosphatase 114 (38-126) U/L Troponin I (0.000-0.034) ng/mL NT-Pro-B Natriuret Pep 234 pg/mL Total Protein 7.1 (6.3-8.2) g/dL Albumin 4.5 (3.5-5.0) g/dL 10/19/23 10/19/23 Range/Units 18:14 18:14 WBC (3.8-10.6) k/uL RBC (3.80-5.40) m/uL Hgb (11.4-16.0) gm/dL Hct (34.0-46.0) % MCV (80.0-100.0) fL MCH (25.0-35.0) pg MCHC (31.0-37.0) g/dL RDW (11.5-15.5) % Plt Count (150-450) k/uL MPV Neutrophils % % Lymphocytes % % Monocytes % % Eosinophils % % Basophils % % Neutrophils # (1.3-7.7) k/uL Lymphocytes # (1.0-4.8) k/uL Monocytes # (0-1.0) k/uL Eosinophils # (0-0.7) k/uL Basophils # (0-0.2) k/uL PT (10.0-12.5) sec INR (<1.2) APTT (22.0-30.0) sec D-Dimer (<0.60) mg/L FEU Sodium (137-145) mmol/L Potassium (3.5-5.1) mmol/L Chloride (98-107) mmol/L Carbon Dioxide (22-30) mmol/L Anion Gap mmol/L BUN (7-17) mg/dL Creatinine (0.52-1.04) mg/dL Est GFR (CKD-EPI)AfAm (>60 ml/min/1.73 sqM) Est GFR (CKD-EPI)NonAf (>60 ml/min/1.73 sqM) Glucose (74-99) mg/dL Plasma Lactic Acid [place] 1.2 (0.7-2.0) mmol/L Calcium (8.4-10.2) mg/dL Magnesium (1.6-2.3) mg/dL Total Bilirubin (0.2-1.3) mg/dL AST (14-36) U/L ALT (4-34) U/L Alkaline Phosphatase (38-126) U/L Troponin I <0.012 (0.000-0.034) ng/mL NT-Pro-B Natriuret Pep pg/mL Total Protein (6.3-8.2) g/dL Albumin (3.5-5.0) g/dL - EKG Data -: EKG Interpreted by Me (EKG is sinus 91 HI 141 QRS 84 QTc 380) - Radiology Data Radiology results: report reviewed (Chest x-ray is n positive for pneumonia), image reviewed Critical Care Time Critical Care Time: Yes Total Critical Care Time: 31 Disposition Clinical Impression: Community acquired pneumonia, Acute exacerbation of chronic obstructive pulmonary disease, Hypoxia, Chest pain Disposition: ADMITTED IP TO THIS HOSP Condition: Serious Is patient prescribed a controlled substance at d/c from ED?: No Time of Disposition: 20:20
[2023-10-19 18:20] LABS: Basophils % (A) 0 %; Eosinophils # (A) 0.1 k/uL (0-0.7); Eosinophils % (A) 2 %; HCT 41.9 % (34.0-46.0); HGB 13.4 gm/dL (11.4-16.0); Lymphocytes # (A) 0.6 k/uL (1.0-4.8); Lymphocytes % (A) 8 %; MCH 28.6 pg (25.0-35.0); MCV 89.4 fL (80.0-100.0); Mean Platelet Volume 8.8; Monocytes # (A) 0.4 k/uL (0-1.0); Monocytes % (A) 5 %; Neutrophils # (A) 7.1 k/uL (1.3-7.7); Neutrophils % (A) 85 %; Platelet Count 189 k/uL (150-450); RBC 4.68 m/uL (3.80-5.40); RDW 13.1 % (11.5-15.5); WBC 8.4 k/uL (3.8-10.6)
[2023-10-19] MEDS: SODIUM CHLORIDE 0.9% 500 ML 500 ML IV STA (18:24)
[2023-10-19 18:30] LABS: ALT 17 U/L (4-34); AST 21 U/L (14-36); African American GFR (CKD) 67 (>60 ml/min/1.73 sqM); Albumin 4.5 g/dL (3.5-5.0); Alkaline Phosphatase 114 U/L (38-126); Anion Gap 9 mmol/L; Blood Urea Nitrogen 16 mg/dL (7-17); Calcium 9.8 mg/dL (8.4-10.2); Carbon Dioxide 27 mmol/L (22-30); Chloride 102 mmol/L (98-107); Glucose 108 mg/dL (74-99); Magnesium 1.9 mg/dL (1.6-2.3); Non-African American GFR(CKD) 58 (>60 ml/min/1.73 sqM); Potassium 3.9 mmol/L (3.5-5.1); Sodium 138 mmol/L (137-145); Total Bilirubin 0.8 mg/dL (0.2-1.3); Total Protein 7.1 g/dL (6.3-8.2)
[2023-10-19] MEDS: IPRATROPIUM-ALBUTEROL 3 ML NEB INHALATION STA ×2 (18:32→21:38)
--- NOTE | 2023-10-19 18:32 | XR ---
EXAMINATION TYPE: XR chest 1V portable DATE OF EXAM: 10/19/2023 COMPARISON: 08/01/2022 HISTORY: Cough and chest pain TECHNIQUE: Single frontal view of the chest is obtained. FINDINGS: There is a partially consolidative opacity in the right lung base suspicious for pneumonia. Short-ter m follow-up to resolution is recommended. Left lung is clear. There is no pleural effusion or pneumothorax. Heart and pulmonary vasculature are normal. The osseous structures are intact IMPRESSION: Acute cardiopulmonary process involving the right lung base suspicious for pneumonia. Cl inical correlation short-term follow up to resolution is recommended.
[2023-10-19 18:36] LABS: INR 0.9 (<1.2); Partial Thromboplastin Time 27.2 sec (22.0-30.0); Prothrombin Time 10.1 sec (10.0-12.5)
[2023-10-19 18:38] LABS: NT-Pro-B-Type Natriuretic Pept 234 pg/mL
[2023-10-19] MEDS ORDERED: PNEUMONIA PROTOCOL UTILIZED 1 EACH MISC PO PRN (20:03)
[2023-10-19] MEDS: LEVOFLOXACIN 750MG-D5W PMX 750 MG in DEXTROSE/WATER 1 150ML.BAG IVPB STA (21:28)
[2023-10-19] MEDS: AMPICILLIN-SULBACTAM 3 GM in SODIUM CHLORIDE 0.9% 100 ML IVPB STA (21:29)
[2023-10-20] MEDS: MEROPENEM 2 GM in SODIUM CHLORIDE 0.9% 100 ML IVPB STA (00:04)
--- NOTE | 2023-10-20 03:16 | P.CNPUL ---
History of Present Illness Consult date: 10/20/23 Requesting physician: Javon Gale Reason for consult: pneumonia Chief complaint: Shortness of breath, productive cough, chest congestion, chills History of present illness: Patient is a 77-year-old white female with past medical history significant for very severe COPD with an FEV1 23% of predicted, hypertension, hyperlipidemia, GERD. Her primary care provider is Dr. Wing. She also follows in the pulmonary office with Dr. Magaña for management of her very severe COPD. She was previously on Advair, but this was reprotedly not covered by her insurance any longer. Since then, she was started on Breztri inhaler with samples. She reports burning in her chest after use. This reportedly started on Thursday. She also reports shortness of breath, a productive cough with yellow to green sputum production, chest congestion and tightness, and chills. She states that she called EMS on Thursday who recommended that she stop taking her Breztri inhaler. Since then, she has progressively worsened. She did go to [place] urgent [facility] clinic yesterday evening who evaluated her, diagnosed her with possible pneumonia, and recommended that she come to the emergency room for evaluation. On my evaluation, she is still in the Emergency Department. The patient is currently resting in bed, on 2 L/min nasal cannula, in no acute distress. She denies home O2 use. Chest x-ray done at our facility shows an opacity at the right lung base suspicious for pneumonia. CBC unremarkable. No leukocytosis. CMP also unremarkable. Troponin less than 0.012. NT proBNP 234. EKG showed no rmal sinus rhythm and nondiagnostic for acute ischemia. She was negative for influenza, RSV, COVID. Secondary to her multiple antibiotic allergies she was placed on a combination of meropenem and Levaquin in the emergency room. Currently afebrile. Overall nontoxic appearance. Review of Systems REVIEW OF SYSTEMS: CONSTITUTIONAL: Denies any recent significant weight loss or weight gain. EYES: Denies change in vision. EARS, NOSE, MOUTH, THROAT: Denies headaches, denies sore throat. CARDIOVASCULAR: Denies chest pain, palpitations or syncopal episodes. Does admit chronic lower extremity swelling. RESPIRATORY: See HPI. GASTROINTESTINAL: Denies change in appetite, abdominal pain, nausea and vomiting, or diarrhea GENITOURINARY: Denies hematuria, denies infections. MUSKULOSKELETAL: Denies pain, denies swelling. INTEGUMENTARY: Denies rash, denies eczema. NEUROLOGICAL: Denies recent memory loss, no recent seizure activity. PSYCHIATRIC: Denies anxiety, denies depression. HEMATOLOGIC/LYMPHATIC: Denies anemia, denies enlarged lymph node Past Medical History Past Medical History: COPD, Hyperlipidemia, Hypertension Additional Past Medical History / Comment(s): Blood transfusion for anemia, CVA 1993 History of Any Multi-Drug Resistant Organisms: None Reported Past Surgical History: Hysterectomy Past Psychological History: No Psychological Hx Reported Smoking Status: Former smoker Past Alcohol Use History: None Reported Past Drug Use History: None Reported Medications and Allergies Home Medications Medication Instructions Recorded Confirmed Type Albuterol Nebulized [Ventolin 2.5 mg INHALATION RT-QID PRN 08/01/22 10/19/23 History Nebulized] Albuterol Sulfate [Albuterol 2 puff PO RT-QID PRN 08/01/22 10/19/23 History Sulfate Hfa] Aspirin 81 mg PO DAILY 08/01/22 10/19/23 History Fluticasone Nasal [place] [Flonase 2 spray EA NOSTRIL DAILY 08/01/22 10/19/23 History Nasal [place]] Pantoprazole [Protonix] 40 mg PO DAILY 08/01/22 10/19/23 History amLODIPine [Norvasc] 10 mg PO DAILY 08/01/22 10/19/23 History Atorvastatin [Lipitor] 10 mg PO HS #30 tab 08/02/22 10/19/23 Rx Losartan Potassium [Cozaar] 100 mg PO HS #30 tab 08/02/22 10/19/23 Rx Chlorthalidone 25 mg PO Q48H 10/19/23 10/19/23 History Cholecalciferol (Vitamin D3) 50 mcg PO DAILY 10/19/23 10/19/23 History [Vitamin D3 (50 Mcg = 2000 Iu)] carvediloL [Coreg] 6.25 mg PO BID-W/MEALS 10/19/23 10/19/23 History Allergies Allergy/AdvReac Type Severity Reaction Status Date / Time cefuroxime Allergy Rash/Hives Verified 10/19/23 20:41 clarithromycin [From Biaxin] Allergy Anaphylaxis, Verified 10/19/23 20:41 hives ibuprofen [From Motrin] Allergy Anaphylaxis, Verified 10/19/23 20:41 hives latex Allergy Rash/Hives Verified 10/19/23 20:41 milk Allergy Rash/Hives Verified 10/19/23 20:41 raspberry Allergy Rash/Hives Verified 10/19/23 20:41 Sulfa (Sulfonamide Allergy Anaphylaxis Verified 10/19/23 20:41 Antibiotics) cephalexin [From Keflex] AdvReac none, per Verified 10/19/23 20:41 patient Penicillins AdvReac Anaphylaxis, Verified 10/19/23 20:41 hives prednisone AdvReac Hallucinati Verified 10/19/23 20:41 ons Physical Exam Vitals: Vital Signs Temp Pulse Resp BP Pulse Ox 10/20/23 02:46 93 18 120/66 93 L 10/20/23 01:29 84 18 130/69 100 10/19/23 23:46 84 18 104/55 97 10/19/23 21:47 83 10/19/23 21:38 79 10/19/23 21:33 80 20 128/73 95 10/19/23 18:41 77 10/19/23 18:32 82 10/19/23 18:24 87 18 140/81 96 10/19/23 18:02 24 10/19/23 16:42 98.9 F 99 20 134/83 91 L Intake and Output 10/19/23 10/19/23 10/20/23 14:59 22:59 06:59 Other: Weight 66.678 kg GENERAL EXAM: Alert, 77-year-old obese white female, overall nontoxic appearance, comfortable in no apparent distress. HEAD: Normocephalic and atraumatic EYES: Normal reaction of pupils, equal size. NOSE: Clear with pink turbinates. THROAT: No erythema or exudates. NECK: No masses, no JVD. CHEST: Barrel chest. LUNGS: Equal air entry with diminished lung sounds throughout. On 2 L/min nasal cannula. No conversational dyspnea or accessory muscle use while at rest CVS: S1 and S2 normal with no audible murmur, regular rhythm. No extra heart sounds ABDOMEN: No hepatosplenomegaly, active bowel sounds, no guarding or rigidity. SPINE: No scoliosis or deformity SKIN: No rashes CENTRAL NERVOUS SYSTEM: No focal deficits, tone is normal in all 4 extremities. EXTREMITIES: There is 2-3+ bilateral lower extremity pitting edema. There is digital clubbing. Peripheral pulses are intact. Results - Laboratory Findings CBC and BMP: 10/19/23 18:14 10/19/23 18:14 PT/INR, D-dimer PT 10.1 sec (10.0-12.5) 10/19/23 18:14 INR 0.9 (<1.2) 10/19/23 18:14 D-Dimer 0.48 mg/L FEU (<0.60) 10/19/23 18:14 Abnormal lab findings: Abnormal Labs 10/19/23 10/19/23 18:14 18:14 Lymphocytes # 0.6 L Glucose 108 H - Diagnostic Findings Chest x-ray: image reviewed Assessment and Plan Assessment: Acute hypoxemic respiratory failure, likely secondary to community-acquired pneumonia. Chest x-ray shows an opacity at the right lung base suspicious for pneumonia. Acute COPD exacerbation, secondary to above Benign essential hypertension Chronic lower extremity edema History of hyperlipidemia History of GERD Obesity, with a BMI of 33 kg/m Very severe chronic obstructive pulmonary disease, with an FEV1 23% of predicted, recently self discontinued maintenance inhalers due to reported intolerance. Multiple medication allergies Plan: Patient's medications, labs, chest x-ray reviewed Continue supplemental oxygen Patient has multiple medication allergies and was was started on a combination of Levaquin and meropenem in the emergency room. Start patient on combination of albuterol nebs [id number], Symbicort inh aler neck, and IV Solu-Medrol Negative for influenza, RSV, COVID. Urine Legionella antigen pending. Obtain sputum sample if possible. Blood cultures pending. Procalcitonin level pending. We will continue to follow I have personally seen and examined the patient, performed the documentation and the assessment and plan as written. Number of minutes spent on the visit:20 Time with Patient: Greater than 30
[2023-10-20] MEDS ORDERED: AMPICILLIN-SULBACTAM 3 GM in SODIUM CHLORIDE 0.9% 100 ML IVPB SCH (06:00)
[2023-10-20] MEDS: methylPREDNISolone SOD SUCCI 125 MG/2 ML VIAL IV SCH (06:19)
[2023-10-20] MEDS: ALBUTEROL NEBULIZED 2.5 MG/3 ML INHALATION SCH (08:33)
[2023-10-20] MEDS: SYMBICORT 160-4.5 MCG INHALER INHALATION SCH (08:33)
[2023-10-20] MEDS: MEROPENEM 2 GM in SODIUM CHLORIDE 0.9% 100 ML IVPB SCH (08:57)
[2023-10-20] MEDS: CHLORTHALIDONE 25 MG TAB PO SCH (10:20)
--- NOTE | 2023-10-20 10:30 | XR ---
EXAMINATION TYPE: XR chest 1V portable DATE OF EXAM: 10/20/2023 Comparison: 10/19/2023 Clinical History: 77-year-old female follow-up pneumonia Findings: Heart normal size. Patchy bibasilar opacities, right greater than left similar to slightly increased. No pleural effusion. Impression: Patchy bibasilar infiltrates, right greater than left, similar to slightly increased.
[2023-10-20] MEDS ORDERED: ALBUTEROL NEBULIZED 2.5 MG/3 ML INHALATION PRN (13:05)
[2023-10-20] MEDS ORDERED: ALBUTEROL HFA INHALER INHALATION PRN (13:05)
--- NOTE | 2023-10-20 13:43 | P.HPIM ---
History of Present Illness 77-year-old female came with complaints of cough with sputum production chest tightness patient has a lot of green sputum production. Patient is admitted for pneumonia patient does have infiltrate in the right lower lobes although her procalcitonin is within normal limits patient has multiple drug allergies because of which patient is started on meropenem and Levaquin in the ER. Patient does not have any leukocytosis hemodynamically stable. Patient is negative for influenza RSV and COVID-19. REVIEW OF SYSTEMS: CONSTITUTIONAL: No fever, no malaise, no fatigue. HEENT: No recent visual problems or hearing problems. Denied any sore throat. CARDIOVASCULAR: No chest pain, orthopnea, PND, no palpitations, no syncope. PULMONARY: As mentioned in HPI. GASTROINTESTINAL: No diarrhea, no nausea, no vomiting, no abdominal pain. NEUROLOGICAL: No headaches, no weakness, no numbness. HEMATOLOGICAL: Denies any bleeding or petechiae. GENITOURINARY: Denies any burning micturition, frequency, or urgency. MUSCULOSKELETAL/RHEUMATOLOGICAL: Denies any joint pain, swelling, or any muscle pain. ENDOCRINE: Denies any polyuria or polydipsia. The rest of the 14-point review of systems is negative. PHYSICAL EXAMINATION: GENERAL: The patient is alert and oriented x3, not in any acute distress. Well developed, well nourished. HEENT: Pupils are round and equally reacting to light. EOMI. No scleral icterus. No conjunctival pallor. Normocephalic, atraumatic. No pharyngeal erythema. No thyromegaly. CARDIOVASCULAR: S1 and S2 present. No murmurs, rubs, or gallops. PULMONARY: Chest is clear to auscultation, no wheezing or crackles. ABDOMEN: Soft, nontender, nondistended, normoactive bowel sounds. No palpable organomegaly. MUSCULOSKELETAL: No joint swelling or deformity. EXTREMITIES: No cyanosis, clubbing, or pedal edema. NEUROLOGICAL: Gross neurological examination did not reveal any focal deficits. SKIN: No rashes. Assessment and plan -Possible community-acquired pneumonia, patient will be the continued on L evaquin patient is hemodynamically stable patient will be discharged today -COPD with acute exacerbation mild patient will be discharged in short course of steroids -Hypertension -Hyperlipidemia -Gastroesophageal reflux disease -Severe COPD with FEV1 of 23% presently only in mild acute exacerbation which improved at this time Patient will be discharged today with oral Levaquin for 5 days and follow-up with Dr. Martinez as an outpatient Past Medical History Past Medical History: COPD, Hyperlipidemia, Hypertension Additional Past Medical History / Comment(s): Blood transfusion for anemia, CVA 1993 History of Any Multi-Drug Resistant Organisms: None Reported Past Surgical History: Hysterectomy Past Psychological History: No Psychological Hx Reported Smoking Status: Former smoker Past Alcohol Use History: None Reported Past Drug Use History: None Reported Medications and Allergies Home Medications Medication Instructions Recorded Confirmed Type Albuterol Nebulized [Ventolin 2.5 mg INHALATION RT-QID PRN 08/01/22 10/19/23 History Nebulized] Albuterol Sulfate [Albuterol 2 puff PO RT-QID PRN 08/01/22 10/19/23 History Sulfate Hfa] Aspirin 81 mg PO DAILY 08/01/22 10/19/23 History Fluticasone Nasal [place] [Flonase 2 spray EA NOSTRIL DAILY 08/01/22 10/19/23 History Nasal [place]] Pantoprazole [Protonix] 40 mg PO DAILY 08/01/22 10/19/23 History amLODIPine [Norvasc] 10 mg PO DAILY 08/01/22 10/19/23 History Atorvastatin [Lipitor] 10 mg PO HS #30 tab 08/02/22 10/19/23 Rx Losartan Potassium [Cozaar] 100 mg PO HS #30 tab 08/02/22 10/19/23 Rx Chlorthalidone 25 mg PO Q48H 10/19/23 10/19/23 History Cholecalciferol (Vitamin D3) 50 mcg PO DAILY 10/19/23 10/19/23 History [Vitamin D3 (50 Mcg = 2000 Iu)] carvediloL [Coreg] 6.25 mg PO BID-W/MEALS 10/19/23 10/19/23 History Fluticasone/Vilanterol [Breo 1 each IH BID #1 each 10/20/23 Rx Ellipta 100-25 Mcg Inhalr] Levofloxacin [Levaquin] 500 mg PO DAILY 5 Days #5 tab 10/20/23 Rx Allergies Allergy/AdvReac Type Severity Reaction Status Date / Time cefuroxime Allergy Rash/Hives Verified 10/19/23 20:41 clarithromycin [From Biaxin] Allergy Anaphylaxis, Verified 10/19/23 20:41 hives ibuprofen [From Motrin] Allergy Anaphylaxis, Verified 10/19/23 20:41 hives latex Allergy Rash/Hives Verified 10/19/23 20:41 milk Allergy Rash/Hives Verified 10/19/23 20:41 raspberry Allergy Rash/Hives Verified 10/19/23 20:41 Sulfa (Sulfonamide Allergy Anaphylaxis Verified 10/19/23 20:41 Antibiotics) cephalexin [From Keflex] AdvReac none, per Verified 10/19/23 20:41 patient Penicillins AdvReac Anaphylaxis, Verified 10/19/23 20:41 hives prednisone AdvReac Hallucinati Verified 10/19/23 20:41 ons Physical Exam Vitals: Vital Signs Temp Pulse Resp BP Pulse Ox 10/20/23 08:48 96 10/20/23 08:34 98 93 L 10/20/23 06:17 93 20 127/69 92 L 10/20/23 02:46 93 18 120/66 93 L 10/20/23 01:29 84 18 130/69 100 10/19/23 23:46 84 18 104/55 97 10/19/23 21:47 83 10/19/23 21:38 79 10/19/23 21:33 80 20 128/73 95 10/19/23 18:41 77 10/19/23 18:32 82 10/19/23 18:24 87 18 140/81 96 10/19/23 18:02 24 10/19/23 16:42 98.9 F 99 20 134/83 91 L Intake and Output 10/19/23 10/20/23 10/20/23 22:59 06:59 14:59 Other: Weight 66.678 kg Results CBC & Chem 7: 10/19/23 18:14 10/19/23 18:14 Labs: Abnormal Lab Results - Last 24 Hours (Table) 10/19/23 10/19/23 Range/Units 18:14 18:14 Lymphocytes # 0.6 L (1.0-4.8) k/uL Glucose 108 H (74-99) mg/dL
--- NOTE | 2023-10-20 13:43 | P.DS ---
Providers Date of admission: 10/19/23 20:19 Attending physician: Ryan Hilton Consults: 10/19/23 20:13 Consult Physician Routine Consulting Provider: Loan Magaña Consult Reason/Comments: glenn Do you want consulting provider notified?: Yes Primary care physician: Loan Magaña [facility] Course: 77-year-old female came with complaints of cough with sputum production chest tightness patient has a lot of green sputum production. Patient is admitted for pneumonia patient does have infiltrate in the right lower lobes although her procalcitonin is within normal limits patient has multiple drug allergies because of which patient is started on meropenem and Levaquin in the ER. Patient does not have any leukocytosis hemodynamically stable. Patient is negative for influenza RSV and COVID-19. PHYSICAL EXAMINATION: GENERAL: The patient is alert and oriented x3, not in any acute distress. Well developed, well nourished. HEENT: Pupils are round and equally reacting to light. EOMI. No scleral icterus. No conjunctival pallor. Normocephalic, atraumatic. No pharyngeal erythema. No thyromegaly. CARDIOVASCULAR: S1 and S2 present. No murmurs, rubs, or gallops. PULMONARY: Chest is clear to auscultation, no wheezing or crackles. ABDOMEN: Soft, nontender, nondistended, normoactive bowel sounds. No palpable organomegaly. MUSCULOSKELETAL: No joint swelling or deformity. EXTREMITIES: No cyanosis, clubbing, or pedal edema. NEUROLOGICAL: Gross neurological examination did not reveal any focal deficits. SKIN: No rashes. Assessment and plan -Possible community-acquired pneumonia, patient will be the continued on Levaquin patient is hemodynamically stable patient will be discharged today -COPD with acute exacerbation mild patient will be discharged in short course of steroids -Hypertension -Hyperlipidemia -Gastroesophageal reflux disease -Severe COPD with FEV1 of 23% presently only in mild acute exacerbation which improved at this time Patient will be discharged today with oral Levaquin for 5 days and follow-up with Dr. Martinez as an outpatient Patient Condition at Discharge: Serious Plan - Discharge Summary New Discharge Prescriptions: New Fluticasone/Vilanterol [Breo Ellipta 100-25 Mcg Inhalr] 1 each IH BID #1 each Levofloxacin [Levaquin] 500 mg PO DAILY 5 Days #5 tab Continue Albuterol Nebulized [Ventolin Nebulized] 2.5 mg INHALATION RT-QID PRN PRN Reason: Shortness Of Breath Pantoprazole [Protonix] 40 mg PO DAILY Aspirin 81 mg PO DAILY amLODIPine [Norvasc] 10 mg PO DAILY carvediloL [Coreg] 6.25 mg PO BID-W/MEALS Chlorthalidone 25 mg PO Q48H Fluticasone Nasal [place] [Flonase Nasal [place]] 2 spray EA NOSTRIL DAILY Albuterol Sulfate [Albuterol Sulfate Hfa] 2 puff PO RT-QID PRN PRN Reason: Shortness Of Breath Losartan Potassium [Cozaar] 100 mg PO HS #30 tab Atorvastatin [Lipitor] 10 mg PO HS #30 tab Cholecalciferol (Vitamin D3) [Vitamin D3 (50 Mcg = 2000 Iu)] 50 mcg PO DAILY Discharge Medication List Albuterol Nebulized [Ventolin Nebulized] 2.5 mg INHALATION RT-QID PRN 08/01/22 [History] Albuterol Sulfate [Albuterol Sulfate Hfa] 2 puff PO RT-QID PRN 08/01/22 [History] Aspirin 81 mg PO DAILY 08/01/22 [History] Fluticasone Nasal [place] [Flonase Nasal [place]] 2 spray EA NOSTRIL DAILY 08/01/22 [History] Pantoprazole [Protonix] 40 mg PO DAILY 08/01/22 [History] amLODIPine [Norvasc] 10 mg PO DAILY 08/01/22 [History] Atorvastatin [Lipitor] 10 mg PO HS #30 tab 08/02/22 [Rx] Losartan Potassium [Cozaar] 100 mg PO HS #30 tab 08/02/22 [Rx] Chlorthalidone 25 mg PO Q48H 10/19/23 [History] Cholecalciferol (Vitamin D3) [Vitamin D3 (50 Mcg = 2000 Iu)] 50 mcg PO DAILY 10/19/23 [History] carvediloL [Coreg] 6.25 mg PO BID-W/MEALS 10/19/23 [History] Fluticasone/Vilanterol [Breo Ellipta 100-25 Mcg Inhalr] 1 each IH BID #1 each 10/20/23 [Rx] Levofloxacin [Levaquin] 500 mg PO DAILY 5 Days #5 tab 10/20/23 [Rx] Follow up Appointment(s)/Referral(s): Loan Magaña MD [Primary Care Provider] - 1-2 days
[2023-10-20] MEDS: CHOLECALCIFEROL 25 MCG (1000 IU) TABLET PO SCH (14:12)
[2023-10-20] MEDS: PANTOPRAZOLE 40 MG TABLET PO SCH (14:12)
[2023-10-20] MEDS: amLODIPine 10 MG TAB PO SCH (14:12)
[2023-10-20] MEDS: FLUTICASONE 50MCG/SPRAY NASAL 16GM EA NOSTRIL SCH (14:13)
[2023-10-20] MEDS: ACETAMINOPHEN TAB 500 MG TAB PO STA (14:18)
[2023-10-20] MEDS: carvediloL 6.25 MG TAB PO SCH (14:25)
[2023-10-20] MEDS: SODIUM CHLORIDE 0.9% 1,000 ML IV SCH (17:01)
[2023-10-20] MEDS ORDERED: carvediloL 6.25 MG TAB PO SCH (17:30)
[2023-10-20] MEDS: LOSARTAN 50 MG TAB PO SCH (20:59)
[2023-10-20] MEDS ORDERED: LOSARTAN 50 MG TAB PO SCH (21:00)
[2023-10-20] MEDS: ATORVASTATIN 10 MG TAB PO SCH (21:00)
[2023-10-20] MEDS: HEPARIN SODIUM,PORCINE 5,000 UNIT/ML 1 ML VIAL SQ SCH (21:01)
[2023-10-21] MEDS: ASPIRIN 81 MG PO SCH (08:26)
[2023-10-21 08:49] LABS: BUN/Creat Ratio 17.27 Ratio (12.00-20.00); Carbon Dioxide 24.2 mmol/L (21.6-31.8); Chloride 102 mmol/L (96-109); Glucose 117 mg/dL (70-110); Potassium 3.9 mmol/L (3.5-5.5); Sodium 141 mmol/L (135-145)
--- NOTE | 2023-10-21 14:53 | P.PN ---
Subjective Progress Note Date: 10/21/23 Patient is a 77-year-old white female with past medical history significant for very severe COPD with an FEV1 23% of predicted, hypertension, hyperlipidemia, GERD. Her primary care provider is Dr. Wing. She also follows in the pulmonary office with Dr. Magaña for management of her very severe COPD. She was previously on Advair, but this was reprotedly not covered by her insurance any longer. Since then, she was started on Breztri inhaler with samples. She reports burning in her chest after use. This reportedly started on Thursday. She also reports shortness of breath, a productive cough with yellow to green sputum production, chest congestion and tightness, and chills. She states that she called EMS on Thursday who recommended that she stop taking her Breztri inhaler. Since then, she has progressively worsened. She did go to [place] [facility] clinic yesterday evening who evaluated her, diagnosed her with possible pneumonia, and recommended that she come to the emergency room for evaluation. On my evaluation, she is still in the Emergency Department. The patient is currently resting in bed, on 2 L/min nasal cannula, in no acute distress. She denies home O2 use. Chest x-ray done at our facility shows an opacity at the right lung base suspicious for pneumonia. CBC unremarkable. No leukocytosis. CMP also unremarkable. Troponin less than 0.012. NT proBNP 234. EKG showed normal sinus rhythm and nondiagnostic for acute ischemia. She was negative for influenza, RSV, COVID. Secondary to her multiple antibiotic allergies she was placed on a combination of meropenem and Levaquin in the emergency room. Currently afebrile. Overall nontoxic appearance. The patient is seen today October 21, 2023 and follow-up on the regular medical floor. She is currently sitting up in bed. Awake and alert in no acute distress. She is maintaining O2 saturation in the 90s on 2 L/min per nasal cannula. She does have a loose nonproductive cough. Her procalcitonin was negative at 0.04. She has normal saline at 75 mL/h. Blood culture reveals no growth. Sputum culture revealing no growth. Sodium 141. Potassium 3.9. Bicarb 24. BUN 19. Creatinine 1.1. She is continued on Symbicort, albuterol, Levaquin. Heparin for DVT prophylaxis. She cannot take steroids. Objective - Vital Signs Vital signs: Vital Signs Temp 98.7 F 10/21/23 07:38 Pulse 79 10/21/23 12:30 Resp 17 10/21/23 07:38 BP 123/65 10/21/23 07:38 Pulse Ox 94 L 10/21/23 09:10 FiO2 Intake & Output 10/20/23 10/21/23 10/21/23 18:59 06:59 18:59 Weight 66.678 kg Other: Voiding Method Toilet # Voids 3 - Exam GENERAL EXAM: Alert, 77-year-old female, on 2 L nasal cannula, resting in bed, comfortable in no apparent distress. HEAD: Normocephalic and atraumatic EYES: Normal reaction of pupils, equal size. NOSE: Clear with pink turbinates. THROAT: No erythema or exudates. NECK: No masses, no JVD. CHEST: Barrel chest. LUNGS: Equal air entry with bilateral end expiratory wheeze, few scattered rhonchi, diminished lung sounds throughout. CVS: S1 and S2 normal with no audible murmur, regular rhythm. No extra heart sounds ABDOMEN: No hepatosplenomegaly, active bowel sounds, no guarding or rigidity. SPINE: No scoliosis or deformity SKIN: No rashes CENTRAL NERVOUS SYSTEM: No focal deficits, tone is normal in all 4 extremities. EXTREMITIES: There is 2-3+ bilateral lower extremity pitting edema. There is digital clubbing. Peripheral pulses are intact. - Labs CBC & Chem 7: 10/19/23 18:14 10/21/23 05:12 Labs: Abnormal Lab Results - Last 24 Hours (Table) 10/21/23 Range/Units 05:12 Anion Gap 14.80 H (4.00-12.00) mmol/L Est GFR (CKD-EPI) 52 L (>=60) Glucose 117 H (70-110) mg/dL Microbiology - Last 24 Hours (Table) 10/19/23 20:37 Blood Culture - Preliminary Blood 10/20/23 13:15 Gram Stain - Preliminary Sputum Assessment and Plan Assessment: Acute hypoxemic respiratory failure, likely secondary to community-acquired pneumonia. Chest x-ray shows an opacity at the right lung base suspicious for pneumonia Acute COPD exacerbation, secondary to above Benign essential hypertension Chronic lower extremity edema History of hyperlipidemia History of GERD Obesity, with a BMI of 33 kg/m Very severe chronic obstructive pulmonary disease, with an FEV1 23% of predicted, recently self discontinued maintenance inhalers due to reported intolerance. Multiple medication allergies Plan: The patient was seen and evaluated Stable and on 2 L nasal cannula Labs and medications reviewed Continue Levaquin orally Continue Symbicort and albuterol States intolerant to steroids Cleared for discharge Follow-up in our office in 1 week I have personally seen and examined the patient, performed the documentation and the assessment and plan as written. Number of minutes spent on the visit: 10.
--- NOTE | 2023-10-21 16:18 | P.PN ---
Subjective Progress Note Date: 10/21/23 77-year-old female came with complaints of cough with sputum production chest tightness patient has a lot of green sputum production. Patient is admitted for pneumonia patient does have infiltrate in the right lower lobes although her procalcitonin is within normal limits patient has multiple drug allergies because of which patient is started on meropenem and Levaquin in the ER. Patient does not have any leukocytosis hemodynamically stable. Patient is negative for influenza RSV and COVID-19. 10/21/2023 Patient was evaluated today at the bedside. She continues to report significant cough with sputum production as well as generalized body and muscle aches. Patient was found to have normal procalcitonin level of 0.04 does continue empirically on IV Levaquin. She was initially recommended for discharge home however patient felt like she was increasingly symptomatic and decision was made to keep the patient hospitalized. Today she has diffuse wheezing throughout all lung pathak. She is having sputum production which was sent for culture. Her oxygen saturation is marginal at 94% on room air. Review of Systems Constitutional: Reports fatigue and myalgias Cardio vascular: denied any chest pain, palpitations Gastrointestinal: denied any nausea, vomiting, diarrhea Pulmonary: Reports shortness of breath and cough Neurologic denied any new focal deficits All inpatient medications were reviewed and appropriate changes in these medications as dictated in the interval history and assessment and plan. PHYSICAL EXAMINATION: GENERAL: The patient is alert and oriented x3, not in any acute distress. Well developed, well nourished. HEENT: Pupils are round and equally reacting to light. EOMI. No scleral icterus. No conjunctival pallor. Normocephalic, atraumatic. No pharyngeal erythema. No thyromegaly. CARDIOVASCULAR: S1 and S2 present. No murmurs, rubs, or gallops. PULMONARY: Scattered wheezing throughout. ABDOMEN: Soft, nontender, nondistended, normoactive bowel sounds. No palpable organomegaly. MUSCULOSKELETAL: No joint swelling or deformity. EXTREMITIES: No cyanosis, clubbing, or pedal edema. NEUROLOGICAL: Gross neurological examination did not reveal any focal deficits. SKIN: No rashes. Assessment and plan -Community-acquired pneumonia viral in nature patient is continued empirically on levofloxacin patient is a contraindication to taking prednisone/Solu-Medrol due to adverse reactions and will be continued on inhaled steroids. -COPD with acute exacerbation mild patient will be continued on inhaled steroids as above. -Hypertension -Hyperlipidemia -Gastroesophageal reflux disease -Severe COPD with FEV1 of 23% presently only in mild acute exacerbation which improved at this time GI Prophylaxis DVT prophylaxis Pulmonary following this patient closely. Will continue with inhaled steroids and empiric antibiotic coverage. Patient is encouraged use her incentive spirometer 10 times an hour while awake. We will continue to monitor the patient overnight. The impression and plan of care has been dictated by Marianna Weston, Nurse Practitioner as directed. Dr. Radha MD I have performed a history and physical examination and medical decision making of this patient, discussed the same with the dictator, and agree with the dictators assessment and plan as written, documented as a scribe. Based on total visit time, I have performed more than 50% of this visit. Objective - Vital Signs Vital signs: Vital Signs Temp 97.8 F 10/21/23 14:04 Pulse 76 10/21/23 14:04 Resp 18 10/21/23 14:04 BP 118/63 10/21/23 14:04 Pulse Ox 94 L 10/21/23 14:04 FiO2 Intake & Output 10/20/23 10/21/23 10/21/23 18:59 06:59 18:59 Weight 66.678 kg Other: Voiding Method Toilet # Voids 3 - Labs CBC & Chem 7: 10/19/23 18:14 10/21/23 05:12 Labs: Abnormal Lab Results - Last 24 Hours (Table) 10/21/23 Range/Units 05:12 Anion Gap 14.80 H (4.00-12.00) mmol/L Est GFR (CKD-EPI) 52 L (>=60) Glucose 117 H (70-110) mg/dL Microbiology - Last 24 Hours (Table) 10/19/23 20:37 Blood Culture - Preliminary Blood 10/20/23 13:15 Gram Stain - Preliminary Sputum Assessment and Plan Time with Patient: Less than 30
[2023-10-21] MEDS: LEVOFLOXACIN 500 MG TAB PO SCH (20:04)
[2023-10-21] MEDS ORDERED: LEVOFLOXACIN 750MG-D5W PMX 750 MG in DEXTROSE/WATER 1 150ML.BAG IVPB SCH (21:00)
[2023-10-22] MEDS: IPRATROPIUM-ALBUTEROL 3 ML NEB INHALATION SCH (13:06)
--- NOTE | 2023-10-22 14:36 | P.PN ---
Progress Note - Text Progress Note Date: 10/22/23 77-year-old female came with complaints of cough with sputum production chest tightness patient has a lot of green sputum production. Patient is admitted for pneumonia patient does have infiltrate in the right lower lobes although her procalcitonin is within normal limits patient has multiple drug allergies because of which patient is started on meropenem and Levaquin in the ER. Patient does not have any leukocytosis hemodynamically stable. Patient is negative for influenza RSV and COVID-19. 10/21/2023 Patient was evaluated today at the bedside. She continues to report significant cough with sputum production as well as generalized body and muscle aches. Patient was found to have normal procalcitonin level of 0.04 does continue empirically on IV Levaquin. She was initially recommended for discharge home however patient felt like she was increasingly symptomatic and decision was made to keep the patient hospitalized. Today she has diffuse wheezing throughout all lung pathak. She is having sputum production which was sent for culture. Her oxygen saturation is marginal at 94% on room air. October 21: Sitting edge of the bed. Short of breath. Cough. Bringing up thick creamy sputum. Sent for Gram stain culture. Procalcitonin ordered. Active Medications Acetaminophen (Acetaminophen Tab 325 Mg Tab) 650 mg PO Q6HR PRN PRN Reason: Fever and/ or Pain Albuterol Sulfate (Albuterol Nebulized 2.5 Mg/3 Ml) 2.5 mg INHALATION RT-QID [facility] Last Admin: 10/22/23 12:42 Dose: 2.5 mg Albuterol Sulfate (Albuterol Nebulized 2.5 Mg/3 Ml) 2.5 mg INHALATION RT-QID PRN PRN Reason: Shortness Of Breath Albuterol/Ipratropium (Ipratropium-Albuterol 3 Ml Neb) 3 ml INHALATION RT-QID [facility] Last Admin: 10/22/23 13:06 Dose: Not Given Amlodipine Besylate (Amlodipine 10 Mg Tab) 10 mg PO DAILY [facility] Last Admin: 10/22/23 08:46 Dose: 10 mg Aspirin (Aspirin 81 Mg) 81 mg PO DAILY [facility] Last Admin: 10/22/23 08:46 Dose: 81 mg Atorvastatin Calcium (Atorvastatin 10 Mg Tab) 10 mg PO HS [facility] Last Admin: 10/21/23 20:04 Dose: 10 mg Budesonide (Budesonide 1 Mg/2 Ml Nebu) 1 mg INHALATION RT-BID [facility] Carvedilol (Carvedilol 6.25 Mg Tab) 6.25 mg PO BID-W/MEALS [facility] Last Admin: 10/22/23 08:47 Dose: 6.25 mg Cholecalciferol (Cholecalciferol 25 Mcg (1000 Iu) Tablet) 50 mcg PO DAILY [facility] Last Admin: 10/22/23 08:46 Dose: 50 mcg Enoxaparin Sodium (Enoxaparin 40 Mg/0.4 Ml Syringe) 40 mg SQ DAILY [facility] Fluticasone Propionate (Fluticasone 50mcg/[place] Nasal 16gm) 2 spray EA NOSTRIL DAILY [facility] Last Admin: 10/22/23 08:50 Dose: Not Given Formoterol Fumarate (Formoterol Fumarate 20 Mcg/2 Ml Nebu) 20 mcg INHALATION RT-BID [facility] Guaifenesin (Guaifenesin 600 Mg Tablet.Er) 600 mg PO QID [facility] Sodium Chloride (Saline 0.9%) 1,000 mls @ 75 mls/hr IV .[id number] [facility] Last Admin: 10/22/23 08:47 Dose: 75 mls/hr Levofloxacin (Levofloxacin 500 Mg Tab) 500 mg PO Q48H [facility]; Protocol Last Admin: 10/21/23 20:04 Dose: 500 mg Losartan Potassium (Losartan 50 Mg Tab) 50 mg PO HS [facility] Last Admin: 10/21/23 20:04 Dose: 50 mg Miscellaneous Information (Pneumonia Protocol Utilized 1 Each Misc) 1 each PO ONCE PRN PRN Reason: Per Protocol Pantoprazole Sodium (Pantoprazole 40 Mg Tablet) 40 mg PO DAILY [facility] Last Admin: 10/22/23 08:46 Dose: 40 mg Physical examination: VITAL SIGNS: 98, 91, 20, 159/77, 91% room air GENERAL: The edge of the bed, short of breath, bouts of coughing EYES: Pupils equal. Conjunctiva normal. HEENT: External appearance of nose and ears normal, oral cavity grossly normal. NECK: JVD not raised; masses not palpable. HEART: First and second heart sounds are normal; no edema. LUNGS: Respiratory rate creased; diminished breath sounds. Wheezing ABDOMEN: Soft, nontender, liver spleen not palpable, no masses palpable. PSYCH: Alert and oriented x3; mood and affect anxious MUSCULOSKELETAL:No Clubbing/cyanosis;muscles-grossly intact. 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 On Levaquin. Pulmonary following -COPD [FEV1 of 23%] with acute exacerbation mild patient will be continued on inhaled steroids as above. DuoNeb 4 times daily. Nebulized Pulmicort Add Mucinex -Essential hypertension Coreg 6.25 twice daily Cozaar 50 mg nightly. Amlodipine 10 mg a day -Hyperlipidemia Lipitor 10 mg a day -Gastroesophageal reflux disease -Obesity BMI 33.0 Weight loss measures
[2023-10-22] MEDS: guaiFENesin 600 MG TABLET.ER PO SCH (14:50)
[2023-10-22] MEDS: ENOXAPARIN 40 MG/0.4 ML SYRINGE SQ SCH (14:50)
--- NOTE | 2023-10-22 15:01 | P.PN ---
Subjective Progress Note Date: 10/22/23 Patient is a 77-year-old white female with past medical history significant for very severe COPD with an FEV1 23% of predicted, hypertension, hyperlipidemia, GERD. Her primary care provider is Dr. Wing. She also follows in the pulmonary office with Dr. Magaña for management of her very severe COPD. She was previously on Advair, but this was reprotedly not covered by her insurance any longer. Since then, she was started on Breztri inhaler with samples. She reports burning in her chest after use. This reportedly started on Thursday. She also reports shortness of breath, a productive cough with yellow to green sputum production, chest congestion and tightness, and chills. She states that she called EMS on Thursday who recommended that she stop taking her Breztri inhaler. Since then, she has progressively worsened. She did go to [place] urgent care clinic yesterday evening who evaluated her, diagnosed her with possible pneumonia, and recommended that she come to the emergency room for evaluation. On my evaluation, she is still in the Emergency Department. The patient is currently resting in bed, on 2 L/min nasal cannula, in no acute distress. She denies home O2 use. Chest x-ray done at our facility shows an opacity at the right lung base suspicious for pneumonia. CBC unremarkable. No leukocytosis. CMP also unremarkable. Troponin less than 0.012. NT proBNP 234. EKG showed normal sinus rhythm and nondiagnostic for acute ischemia. She was negative for influenza, RSV, COVID. Secondary to her multiple antibiotic allergies she was placed on a combination of meropenem and Levaquin in the emergency room. Currently afebrile. Overall nontoxic appearance. The patient is seen today October 21, 2023 and follow-up on the regular medical floor. She is currently sitting up in bed. Awake and alert in no acute distress. She is maintaining O2 saturation in the 90s on 2 L/min per nasal cannula. She does have a loose nonproductive cough. Her procalcitonin was negative at 0.04. She has normal saline at 75 mL/h. Blood culture reveals no growth. Sputum culture revealing no growth. Sodium 141. Potassium 3.9. Bicarb 24. BUN 19. Creatinine 1.1. She is continued on Symbicort, albuterol, Levaquin. Heparin for DVT prophylaxis. She cannot take steroids. The patient is seen today October 22, 2023 in follow-up on the regular medical floor. She is awake and alert in no acute distress. Sitting up in bed. She continues with a loose congested cough. Some dyspnea on exertion. She is maintaining O2 saturations in the 90s on 2 L/min per nasal cannula. She is on normal saline at 75 MLS per hour. She continues on Levaquin, DuoNeb inhalation, Symbicort, Mucinex. Lovenox for DVT prophylaxis. Objective - Vital Signs Vital signs: Vital Signs Temp 97.5 F L 10/22/23 13:23 Pulse 69 10/22/23 13:23 Resp 19 10/22/23 13:23 BP 121/61 10/22/23 13:23 Pulse Ox 97 10/22/23 13:23 FiO2 Intake & Output 10/21/23 10/22/23 10/22/23 18:59 06:59 18:59 Other: Voiding Method Toilet Toilet # Voids 2 - Exam GENERAL EXAM: Alert, oriented 77-year-old female, on 2 L nasal cannula, comfortable in no apparent distress. HEAD: Normocephalic and atraumatic EYES: Normal reaction of pupils, equal size. NOSE: Clear with pink turbinates. THROAT: No erythema or exudates. NECK: No masses, no JVD. CHEST: Barrel chest. LUNGS: Equal air entry with bilateral end expiratory wheeze, few scattered rhonchi, diminished lung sounds throughout. CVS: S1 and S2 normal with no audible murmur, regular rhythm. No extra heart sounds ABDOMEN: No hepatosplenomegaly, active bowel sounds, no guarding or rigidity. SPINE: No scoliosis or deformity SKIN: No rashes CENTRAL NERVOUS SYSTEM: No focal deficits, tone is normal in all 4 extremities. EXTREMITIES: There is 2-3+ bilateral lower extremity pitting edema. There is digital clubbing. Peripheral pulses are intact. - Labs CBC & Chem 7: 10/19/23 18:14 10/21/23 05:12 Labs: Microbiology - Last 24 Hours (Table) 10/20/23 13:15 Gram Stain - Final Sputum Sputum Culture - Final 10/19/23 20:37 Blood Culture - Preliminary Blood Assessment and Plan Assessment: Acute hypoxemic respiratory failure, likely secondary to COPD exacerbation. Procalcitonin negative at 0.04 Acute COPD exacerbation, secondary to above Very severe chronic obstructive pulmonary disease, with an FEV1 23% of predicted, recently self discontinued maintenance inhalers due to reported intolerance. Multiple medication allergies, unfortunately including steroids Benign essential hypertension Chronic lower extremity edema History of hyperlipidemia History of GERD Obesity, with a BMI of 33 kg/m Plan: The patient was seen and evaluated Stable and on 2 L nasal cannula Medications reviewed Continue Levaquin Discontinue Symbicort Changed to Pulmicort and Perforomist inhalations States intolerant to steroids I have personally seen and examined the patient, performed the documentation and the assessment and plan as written. Number of minutes spent on the visit: 10.
[2023-10-22] MEDS: CHLORTHALIDONE 25 MG TAB PO SCH (20:59)
[2023-10-22] MEDS: FORMOTEROL FUMARATE 20 MCG/2 ML NEBU INHALATION SCH (21:45)
[2023-10-22] MEDS: BUDESONIDE 1 MG/2 ML NEBU INHALATION SCH (21:45)
--- NOTE | 2023-10-23 13:36 | XR ---
EXAMINATION TYPE: XR chest 2V DATE OF EXAM: 10/23/2023 COMPARISON: 10/20/2023 HISTORY: 77-year-old female pneumonia TECHNIQUE: PA and lateral views FINDINGS: Heart normal size. Aorta and pulmonary vasculature within normal limits. Mild patchy interstitial den sities in the lower lungs. Some improving aeration at the medial right lower lung. IMPRESSION: Some residual patchy densities in the lower lungs. The medial right lower lung airspace disease is sh owing some improvement.
--- NOTE | 2023-10-23 14:55 | P.PN ---
Subjective Progress Note Date: 10/23/23 Patient is a 77-year-old white female with past medical history significant for very severe COPD with an FEV1 23% of predicted, hypertension, hyperlipidemia, GERD. Her primary care provider is Dr. Wing. She also follows in the pulmonary office with Dr. Magaña for management of her very severe COPD. She was previously on Advair, but this was reprotedly not covered by her insurance any longer. Since then, she was started on Breztri inhaler with samples. She reports burning in her chest after use. This reportedly started on Thursday. She also reports shortness of breath, a productive cough with yellow to green sputum production, chest congestion and tightness, and chills. She states that she called EMS on Thursday who recommended that she stop taking her Breztri inhaler. Since then, she has progressively worsened. She did go to [place] urgent care clinic yesterday evening who evaluated her, diagnosed her with possible pneumonia, and recommended that she come to the emergency room for evaluation. On my evaluation, she is still in the Emergency Department. The patient is currently resting in bed, on 2 L/min nasal cannula, in no acute distress. She denies home O2 use. Chest x-ray done at our facility shows an opacity at the right lung base suspicious for pneumonia. CBC unremarkable. No leukocytosis. CMP also unremarkable. Troponin less than 0.012. NT proBNP 234. EKG showed normal sinus rhythm and nondiagnostic for acute ischemia. She was negative for influenza, RSV, COVID. Secondary to her multiple antibiotic allergies she was placed on a combination of meropenem and Levaquin in the emergency room. Currently afebrile. Overall nontoxic appearance. The patient is seen today October 21, 2023 and follow-up on the regular medical floor. She is currently sitting up in bed. Awake and alert in no acute distress. She is maintaining O2 saturation in the 90s on 2 L/min per nasal cannula. She does have a loose nonproductive cough. Her procalcitonin was negative at 0.04. She has normal saline at 75 mL/h. Blood culture reveals no growth. Sputum culture revealing no growth. Sodium 141. Potassium 3.9. Bicarb 24. BUN 19. Creatinine 1.1. She is continued on Symbicort, albuterol, Levaquin. Heparin for DVT prophylaxis. She cannot take steroids. The patient is seen today October 22, 2023 in follow-up on the regular medical floor. She is awake and alert in no acute distress. Sitting up in bed. She continues with a loose congested cough. Some dyspnea on exertion. She is maintaining O2 saturations in the 90s on 2 L/min per nasal cannula. She is on normal saline at 75 MLS per hour. She continues on Levaquin, DuoNeb inhalation, Symbicort, Mucinex. Lovenox for DVT prophylaxis. The patient is seen today October 23, 2023 in follow-up on the regular medical floor. She is currently sitting up in bed. Awake and alert in no acute distress. She is maintaining good O2 saturations in the 90s on 4 L/min per nasal cannula. Her procalcitonin was 0.04 on 2 occasions. Microbiology is negative. She remains on DuoNeb ventilations, Pulmicort and performing scintillations. Allergic to steroids. Chest x-ray shows residual patchy densities in the lower lungs. Medial right lower lung airspace disease improved. Blood cultures revealed no growth. Sputum culture revealed no growth. She does have a productive cough of thick sputum. She is continued on Levaquin. Objective - Vital Signs Vital signs: Vital Signs Temp 97.5 F L 10/23/23 14:00 Pulse 72 10/23/23 14:00 Resp 20 10/23/23 14:00 BP 137/71 10/23/23 14:00 Pulse Ox 90 L 10/23/23 14:25 FiO2 Intake & Output 10/22/23 10/23/23 10/23/23 18:59 06:59 18:59 Intake Total 358 Balance 358 Intake: Oral 358 Other: Voiding Method Toilet Toilet # Voids 3 2 - Exam GENERAL EXAM: Alert, 77-year-old female, sitting up in bed, on 4 L nasal cannula, comfortable in no apparent distress. HEAD: Normocephalic and atraumatic EYES: Normal reaction of pupils, equal size. NOSE: Clear with pink turbinates. THROAT: No erythema or exudates. NECK: No masses, no JVD. CHEST: Barrel chest. LUNGS: Equal air entry with bilateral end expiratory wheeze, few scattered rhonchi, diminished lung sounds throughout. CVS: S1 and S2 normal with no audible murmur, regular rhythm. No extra heart sounds ABDOMEN: No hepatosplenomegaly, active bowel sounds, no guarding or rigidity. SPINE: No scoliosis or deformity SKIN: No rashes CENTRAL NERVOUS SYSTEM: No focal deficits, tone is normal in all 4 extremities. EXTREMITIES: There is 2-3+ bilateral lower extremity pitting edema. There is digital clubbing. Peripheral pulses are intact. - Labs CBC & Chem 7: 10/19/23 18:14 10/21/23 05:12 Labs: Microbiology - Last 24 Hours (Table) 10/22/23 14:58 Gram Stain - Preliminary Sputum 10/19/23 20:37 Blood Culture - Preliminary Blood Assessment and Plan Assessment: Acute hypoxemic respiratory failure, likely secondary to COPD exacerbation. Procalcitonin negative at 0.04 Acute COPD exacerbation, secondary to above Very severe chronic obstructive pulmonary disease, with an FEV1 23% of predicted, recently self discontinued maintenance inhalers due to reported intolerance. Multiple medication allergies, unfortunately including steroids Benign essential hypertension Chronic lower extremity edema History of hyperlipidemia History of GERD Obesity, with a BMI of 33 kg/m Plan: The patient was seen and evaluated Medications reviewed Continue Levaquin Continue bronchodilators States intolerant to steroids Take down the FiO2 as tolerated May require home oxygen We will continue to follow I have personally seen and examined the patient, performed the documentation and the assessment and plan as written. Number of minutes spent on the visit: 10.
[2023-10-23] MEDS ORDERED: ZINC OXIDE PASTE (Z-GUARD) 1 APPLIC TOPICAL PRN (16:15)
--- NOTE | 2023-10-23 17:33 | P.PN ---
Progress Note - Text Progress Note Date: 10/23/23 77-year-old female came with complaints of cough with sputum production chest tightness patient has a lot of green sputum production. Patient is admitted for pneumonia patient does have infiltrate in the right lower lobes although her procalcitonin is within normal limits patient has multiple drug allergies because of which patient is started on meropenem and Levaquin in the ER. Patient does not have any leukocytosis hemodynamically stable. Patient is negative for influenza RSV and COVID-19. 10/21/2023 Patient was evaluated today at the bedside. She continues to report significant cough with sputum production as well as generalized body and muscle aches. Patient was found to have normal procalcitonin level of 0.04 does continue empirically on IV Levaquin. She was initially recommended for discharge home however patient felt like she was increasingly symptomatic and decision was made to keep the patient hospitalized. Today she has diffuse wheezing throughout all lung pathak. She is having sputum production which was sent for culture. Her oxygen saturation is marginal at 94% on room air. October 21: Sitting edge of the bed. Short of breath. Cough. Bringing up thick creamy sputum. Sent for Gram stain culture. Procalcitonin ordered. October 22: Still coughing up quite a bit of sputum. Short of breath. A bit better. Repeat sputum was sent of yesterday. Eating well. Daughter at the bedside. Active Medications Acetaminophen (Acetaminophen Tab 325 Mg Tab) 650 mg PO Q6HR PRN PRN Reason: Fever and/ or Pain Albuterol Sulfate (Albuterol Nebulized 2.5 Mg/3 Ml) 2.5 mg INHALATION RT-QID PRN PRN Reason: Shortness Of Breath Albuterol/Ipratropium (Ipratropium-Albuterol 3 Ml Neb) 3 ml INHALATION RT-QID COUNTS INCLUDE 234 BEDS AT THE [facility] Last Admin: 10/23/23 15:06 Dose: 3 ml Amlodipine Besylate (Amlodipine 10 Mg Tab) 10 mg PO DAILY COUNTS INCLUDE 234 BEDS AT THE [facility] Last Admin: 10/23/23 08:46 Dose: 10 mg Aspirin (Aspirin 81 Mg) 81 mg PO DAILY COUNTS INCLUDE 234 BEDS AT THE [facility] Last Admin: 10/23/23 08:46 Dose: 81 mg Atorvastatin Calcium (Atorvastatin 10 Mg Tab) 10 mg PO HS COUNTS INCLUDE 234 BEDS AT THE [facility] Last Admin: 10/22/23 20:59 Dose: 10 mg Budesonide (Budesonide 1 Mg/2 Ml Nebu) 1 mg INHALATION RT-BID COUNTS INCLUDE 234 BEDS AT THE [facility] Last Admin: 10/23/23 08:10 Dose: 1 mg Carvedilol (Carvedilol 6.25 Mg Tab) 6.25 mg PO BID-W/MEALS COUNTS INCLUDE 234 BEDS AT THE [facility] Last Admin: 10/23/23 17:20 Dose: 6.25 mg Chlorthalidone (Chlorthalidone 25 Mg Tab) 25 mg PO Q48H COUNTS INCLUDE 234 BEDS AT THE [facility] Last Admin: 10/22/23 20:59 Dose: 25 mg Cholecalciferol (Cholecalciferol 25 Mcg (1000 Iu) Tablet) 50 mcg PO DAILY COUNTS INCLUDE 234 BEDS AT THE [facility] Last Admin: 10/23/23 08:46 Dose: 50 mcg Enoxaparin Sodium (Enoxaparin 40 Mg/0.4 Ml Syringe) 40 mg SQ DAILY COUNTS INCLUDE 234 BEDS AT THE [facility] Last Admin: 10/23/23 08:46 Dose: 40 mg Fluticasone Propionate (Fluticasone 50mcg/[place] Nasal 16gm) 2 spray EA NOSTRIL DAILY COUNTS INCLUDE 234 BEDS AT THE [facility] Last Admin: 10/23/23 08:48 Dose: Not Given Formoterol Fumarate (Formoterol Fumarate 20 Mcg/2 Ml Nebu) 20 mcg INHALATION RT-BID COUNTS INCLUDE 234 BEDS AT THE [facility] Last Admin: 10/23/23 08:09 Dose: 20 mcg Guaifenesin (Guaifenesin 600 Mg Tablet.Er) 600 mg PO QID COUNTS INCLUDE 234 BEDS AT THE [facility] Last Admin: 10/23/23 17:20 Dose: 600 mg Levofloxacin (Levofloxacin 500 Mg Tab) 500 mg PO Q48H COUNTS INCLUDE 234 BEDS AT THE [facility]; Protocol Last Admin: 10/21/23 20:04 Dose: 500 mg Losartan Potassium (Losartan 50 Mg Tab) 50 mg PO HS COUNTS INCLUDE 234 BEDS AT THE [facility] Last Admin: 10/22/23 20:59 Dose: 50 mg Miscellaneous Information (Pneumonia Protocol Utilized 1 Each Misc) 1 each PO ONCE PRN PRN Reason: Per Protocol Pantoprazole Sodium (Pantoprazole 40 Mg Tablet) 40 mg PO DAILY COUNTS INCLUDE 234 BEDS AT THE [facility] Last Admin: 10/23/23 08:50 Dose: 40 mg Petrolatum (Zinc Oxide Paste (Z-Guard) 1 Applic) 1 applic TOPICAL DAILY PRN; Protocol PRN Reason: Wound Healing Physical examination: VITAL SIGNS: 97.5, 72, 20, 137/71, 98% on 2 L GENERAL: The edge of the bed, shortness of breath EYES: Pupils equal. Conjunctiva normal. HEENT: External appearance of nose and ears normal, oral cavity grossly normal. NECK: JVD not raised; masses not palpable. HEART: First and second heart sounds are normal; no edema. LUNGS: Respiratory rate creased; diminished breath sounds. ABDOMEN: Soft, nontender, liver spleen not palpable, no masses palpable. PSYCH: Alert and oriented x3; mood and affect anxious MUSCULOSKELETAL:No Clubbing/cyanosis;muscles-grossly intact. 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 On Levaquin. Per pulmonary Pulmonary following -COPD [FEV1 of 23%] with acute exacerbation mild patient will be continued on inhaled steroids as above. DuoNeb 4 times daily. Nebulized Pulmicort Mucinex -Essential hypertension Coreg 6.25 twice daily Cozaar 50 mg nightly. Amlodipine 10 mg a day -Hyperlipidemia Lipitor 10 mg a day -Gastroesophageal reflux disease -Obesity BMI 33.0 Weight loss measures Discussed with patient.
[2023-10-23] MEDS: ACETAMINOPHEN TAB 325 MG TAB PO PRN (22:24)
--- NOTE | 2023-10-24 15:04 | P.PN ---
Subjective Progress Note Date: 10/24/23 Patient is a 77-year-old white female with past medical history significant for very severe COPD with an FEV1 23% of predicted, hypertension, hyperlipidemia, GERD. Her primary care provider is Dr. Wing. She also follows in the pulmonary office with Dr. Magaña for management of her very severe COPD. She was previously on Advair, but this was reprotedly not covered by her insurance any longer. Since then, she was started on Breztri inhaler with samples. She reports burning in her chest after use. This reportedly started on Thursday. She also reports shortness of breath, a productive cough with yellow to green sputum production, chest congestion and tightness, and chills. She states that she called EMS on Thursday who recommended that she stop taking her Breztri inhaler. Since then, she has progressively worsened. She did go to [place] urgent care clinic yesterday evening who evaluated her, diagnosed her with possible pneumonia, and recommended that she come to the emergency room for evaluation. On my evaluation, she is still in the Emergency Department. The patient is currently resting in bed, on 2 L/min nasal cannula, in no acute distress. She denies home O2 use. Chest x-ray done at our facility shows an opacity at the right lung base suspicious for pneumonia. CBC unremarkable. No leukocytosis. CMP also unremarkable. Troponin less than 0.012. NT proBNP 234. EKG showed normal sinus rhythm and nondiagnostic for acute ischemia. She was negative for influenza, RSV, COVID. Secondary to her multiple antibiotic allergies she was placed on a combination of meropenem and Levaquin in the emergency room. Currently afebrile. Overall nontoxic appearance. The patient is seen today October 21, 2023 and follow-up on the regular medical floor. She is currently sitting up in bed. Awake and alert in no acute distress. She is maintaining O2 saturation in the 90s on 2 L/min per nasal cannula. She does have a loose nonproductive cough. Her procalcitonin was negative at 0.04. She has normal saline at 75 mL/h. Blood culture reveals no growth. Sputum culture revealing no growth. Sodium 141. Potassium 3.9. Bicarb 24. BUN 19. Creatinine 1.1. She is continued on Symbicort, albuterol, Levaquin. Heparin for DVT prophylaxis. She cannot take steroids. The patient is seen today October 22, 2023 in follow-up on the regular medical floor. She is awake and alert in no acute distress. Sitting up in bed. She continues with a loose congested cough. Some dyspnea on exertion. She is maintaining O2 saturations in the 90s on 2 L/min per nasal cannula. She is on normal saline at 75 MLS per hour. She continues on Levaquin, DuoNeb inhalation, Symbicort, Mucinex. Lovenox for DVT prophylaxis. The patient is seen today October 23, 2023 in follow-up on the regular medical floor. She is currently sitting up in bed. Awake and alert in no acute distress. She is maintaining good O2 saturations in the 90s on 4 L/min per nasal cannula. Her procalcitonin was 0.04 on 2 occasions. Microbiology is negative. She remains on DuoNeb ventilations, Pulmicort and performing scintillations. Allergic to steroids. Chest x-ray shows residual patchy densities in the lower lungs. Medial right lower lung airspace disease improved. Blood cultures revealed no growth. Sputum culture revealed no growth. She does have a productive cough of thick sputum. She is continued on Levaquin. The patient is seen today October 24, 2023 in follow-up on the regular medical fl oor. She is awake and alert in no acute distress. Sitting up at the bedside. Denies any worsening shortness of breath. She does have a loose nonproductive cough which is improving. No hemoptysis. Maintaining good O2 saturations in the upper 90s on 2 L/min per nasal cannula. Afebrile. Hemodynamically stable. Blood culture reveals no growth. Sputum culture revealed no growth. She remains on DuoNeb ventilations, Pulmicort and Perforomist inhalation. Antibiotics in the form of Levaquin. Continued on Mucinex. Objective - Vital Signs Vital signs: Vital Signs Temp 98.1 F 10/24/23 13:38 Pulse 74 10/24/23 13:38 Resp 17 10/24/23 13:38 BP 122/67 10/24/23 13:38 Pulse Ox 98 10/24/23 13:38 FiO2 Intake & Output 10/23/23 10/24/23 10/24/23 18:59 06:59 18:59 Intake Total 598 Balance 598 Intake: Oral 598 Other: Voiding Method Toilet # Voids 5 1 # Bowel Movements 2 - Exam GENERAL EXAM: Alert, 77-year-old female, on 4 L nasal cannula, in no apparent distress. HEAD: Normocephalic and atraumatic EYES: Normal reaction of pupils, equal size. NOSE: Clear with pink turbinates. THROAT: No erythema or exudates. NECK: No masses, no JVD. CHEST: Barrel chest. LUNGS: Equal air entry with bilateral end expiratory wheeze, few scattered rhonchi. CVS: S1 and S2 normal with no audible murmur, regular rhythm. No extra heart sounds ABDOMEN: No hepatosplenomegaly, active bowel sounds, no guarding or rigidity. SPINE: No scoliosis or deformity SKIN: No rashes CENTRAL NERVOUS SYSTEM: No focal deficits, tone is normal in all 4 extremities. EXTREMITIES: There is 2-3+ bilateral lower extremity pitting edema. There is digital clubbing. Peripheral pulses are intact. - Labs CBC & Chem 7: 10/19/23 18:14 10/21/23 05:12 Labs: Microbiology - Last 24 Hours (Table) 10/22/23 14:58 Gram Stain - Final Sputum Sputum Culture - Final Assessment and Plan Assessment: Acute hypoxemic respiratory failure, likely secondary to COPD exacerbation. Procalcitonin negative at 0.04 Acute COPD exacerbation, secondary to above Very severe chronic obstructive pulmonary disease, with an FEV1 23% of predicted, recently self discontinued maintenance inhalers due to reported intolerance. Multiple medication allergies, unfortunately including steroids Benign essential hypertension Chronic lower extremity edema History of hyperlipidemia History of GERD Obesity, with a BMI of 33 kg/m Plan: The patient was seen and evaluated Medications reviewed Continue the current treatment plan Titrate down the FiO2 as tolerated We will continue to follow I have personally seen and examined the patient, performed the documentation and the assessment and plan as written. Number of minutes spent on the visit: 10.
--- NOTE | 2023-10-24 16:15 | P.PN ---
Progress Note - Text Progress Note Date: 10/24/23 77-year-old female came with complaints of cough with sputum production chest tightness patient has a lot of green sputum production. Patient is admitted for pneumonia patient does have infiltrate in the right lower lobes although her procalcitonin is within normal limits patient has multiple drug allergies because of which patient is started on meropenem and Levaquin in the ER. Patient does not have any leukocytosis hemodynamically stable. Patient is negative for influenza RSV and COVID-19. 10/21/2023 Patient was evaluated today at the bedside. She continues to report significant cough with sputum production as well as generalized body and muscle aches. Patient was found to have normal procalcitonin level of 0.04 does continue empirically on IV Levaquin. She was initially recommended for discharge home however patient felt like she was increasingly symptomatic and decision was made to keep the patient hospitalized. Today she has diffuse wheezing throughout all lung pathak. She is having sputum production which was sent for culture. Her oxygen saturation is marginal at 94% on room air. October 21: Sitting edge of the bed. Short of breath. Cough. Bringing up thick creamy sputum. Sent for Gram stain culture. Procalcitonin ordered. October 22: Still coughing up quite a bit of sputum. Short of breath. A bit better. Repeat sputum was sent of yesterday. Eating well. Daughter at the bedside. October 23: Tired. Short of breath. Does not will to go today. DuoNeb. Levaquin. Belies Pulmicort Active Medications Acetaminophen (Acetaminophen Tab 325 Mg Tab) 650 mg PO Q6HR PRN PRN Reason: Fever and/ or Pain Last Admin: 10/23/23 22:24 Dose: 650 mg Albuterol Sulfate (Albuterol Nebulized 2.5 Mg/3 Ml) 2.5 mg INHALATION RT-QID PRN PRN Reason: Shortness Of Breath Albuterol/Ipratropium (Ipratropium-Albuterol 3 Ml Neb) 3 ml INHALATION RT-QID [facility] Last Admin: 10/24/23 15:22 Dose: 3 ml Amlodipine Besylate (Amlodipine 10 Mg Tab) 10 mg PO DAILY [facility] Last Admin: 10/24/23 10:06 Dose: 10 mg Aspirin (Aspirin 81 Mg) 81 mg PO DAILY [facility] Last Admin: 10/24/23 10:06 Dose: 81 mg Atorvastatin Calcium (Atorvastatin 10 Mg Tab) 10 mg PO HS [facility] Last Admin: 10/23/23 22:25 Dose: 10 mg Budesonide (Budesonide 1 Mg/2 Ml Nebu) 1 mg INHALATION RT-BID [facility] Last Admin: 10/24/23 07:44 Dose: 1 mg Carvedilol (Carvedilol 6.25 Mg Tab) 6.25 mg PO BID-W/MEALS [facility] Last Admin: 10/24/23 06:47 Dose: 6.25 mg Chlorthalidone (Chlorthalidone 25 Mg Tab) 25 mg PO Q48H [facility] Last Admin: 10/22/23 20:59 Dose: 25 mg Cholecalciferol (Cholecalciferol 25 Mcg (1000 Iu) Tablet) 50 mcg PO DAILY [facility] Last Admin: 10/24/23 10:06 Dose: 50 mcg Enoxaparin Sodium (Enoxaparin 40 Mg/0.4 Ml Syringe) 40 mg SQ DAILY [facility] Last Admin: 10/24/23 10:06 Dose: 40 mg Fluticasone Propionate (Fluticasone 50mcg/[place] Nasal 16gm) 2 spray EA NOSTRIL DAILY [facility] Last Admin: 10/24/23 10:06 Dose: Not Given Formoterol Fumarate (Formoterol Fumarate 20 Mcg/2 Ml Nebu) 20 mcg INHALATION RT-BID [facility] Last Admin: 10/24/23 07:55 Dose: 20 mcg Guaifenesin (Guaifenesin 600 Mg Tablet.Er) 600 mg PO QID [facility] Last Admin: 10/24/23 12:08 Dose: 600 mg Levofloxacin (Levofloxacin 500 Mg Tab) 500 mg PO Q48H [facility]; Protocol Last Admin: 10/23/23 22:25 Dose: 500 mg Losartan Potassium (Losartan 50 Mg Tab) 50 mg PO HS [facility] Last Admin: 10/23/23 22:25 Dose: 50 mg Miscellaneous Information (Pneumonia Protocol Utilized 1 Each Misc) 1 each PO ONCE PRN PRN Reason: Per Protocol Pantoprazole Sodium (Pantoprazole 40 Mg Tablet) 40 mg PO DAILY [facility] Last Admin: 10/24/23 10:06 Dose: 40 mg Petrolatum (Zinc Oxide Paste (Z-Guard) 1 Applic) 1 applic TOPICAL DAILY PRN; Protocol PRN Reason: Wound Healing Physical examination: VITAL SIGNS: 88.1, 74, 17, 122 x 67, 98% on 2 L GENERAL: Sitting in bed, tired EYES: Pupils equal. Conjunctiva normal. HEENT: External appearance of nose and ears normal, oral cavity grossly normal. NECK: JVD not raised; masses not palpable. HEART: First and second heart sounds are normal; no edema. LUNGS: Respiratory rate creased; diminished breath sounds. ABDOMEN: Soft, nontender, liver spleen not palpable, no masses palpable. PSYCH: Alert and oriented x3; mood and affect anxious MUSCULOSKELETAL:No Clubbing/cyanosis;muscles-grossly intact. 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 On Levaquin. Per pulmonary Pulmonary following -COPD [FEV1 of 23%] with acute exacerbation mild patient will be continued on inhaled steroids as above. Some improvement DuoNeb 4 times daily. Nebulized Pulmicort Mucinex -Essential hypertension Coreg 6.25 twice daily Cozaar 50 mg nightly. Amlodipine 10 mg a day -Hyperlipidemia Lipitor 10 mg a day -Gastroesophageal reflux disease -Obesity BMI 33.0 Weight loss measures Discussed with patient. Up in chair.
[2023-10-25 06:10] LABS: African American GFR (CKD) 56 (>60 ml/min/1.73 sqM); Anion Gap 2 mmol/L; Blood Urea Nitrogen 21 mg/dL (7-17); Calcium 8.8 mg/dL (8.4-10.2); Carbon Dioxide 33 mmol/L (22-30); Chloride 103 mmol/L (98-107); Glucose 89 mg/dL (74-99); Non-African American GFR(CKD) 49 (>60 ml/min/1.73 sqM); Potassium 4.3 mmol/L (3.5-5.1); Sodium 138 mmol/L (137-145)
--- NOTE | 2023-10-25 13:34 | P.PN ---
Subjective Progress Note Date: 10/25/23 Patient is a 77-year-old white female with past medical history significant for very severe COPD with an FEV1 23% of predicted, hypertension, hyperlipidemia, GERD. Her primary care provider is Dr. Wing. She also follows in the pulmonary office with Dr. Magaña for management of her very severe COPD. She was previously on Advair, but this was reprotedly not covered by her insurance any longer. Since then, she was started on Breztri inhaler with samples. She reports burning in her chest after use. This reportedly started on Thursday. She also reports shortness of breath, a productive cough with yellow to green sputum production, chest congestion and tightness, and chills. She states that she called EMS on Thursday who recommended that she stop taking her Breztri inhaler. Since then, she has progressively worsened. She did go to [facility] yesterday evening who evaluated her, diagnosed her with possible pneumonia, and recommended that she come to the emergency room for evaluation. On my evaluation, she is still in the Emergency Department. The patient is currently resting in bed, on 2 L/min nasal cannula, in no acute distress. She denies home O2 use. Chest x-ray done at our facility shows an opacity at the right lung base suspicious for pneumonia. CBC unremarkable. No leukocytosis. CMP also unremarkable. Troponin less than 0.012. NT proBNP 234. EKG showed normal sinus rhythm and nondiagnostic for acute ischemia. She was negative for influenza, RSV, COVID. Secondary to her multiple antibiotic allergies she was placed on a combination of meropenem and Levaquin in the emergency room. Currently afebrile. Overall nontoxic appearance. The patient is seen today October 21, 2023 and follow-up on the regular medical floor. She is currently sitting up in bed. Awake and alert in no acute distress. She is maintaining O2 saturation in the 90s on 2 L/min per nasal cannula. She does have a loose nonproductive cough. Her procalcitonin was negative at 0.04. She has normal saline at 75 mL/h. Blood culture reveals no growth. Sputum culture revealing no growth. Sodium 141. Potassium 3.9. Bicarb 24. BUN 19. Creatinine 1.1. She is continued on Symbicort, albuterol, Levaquin. Heparin for DVT prophylaxis. She cannot take steroids. The patient is seen today October 22, 2023 in follow-up on the regular medical floor. She is awake and alert in no acute distress. Sitting up in bed. She continues with a loose congested cough. Some dyspnea on exertion. She is maintaining O2 saturations in the 90s on 2 L/min per nasal cannula. She is on normal saline at 75 MLS per hour. She continues on Levaquin, DuoNeb inhalation, Symbicort, Mucinex. Lovenox for DVT prophylaxis. The patient is seen today October 23, 2023 in follow-up on the regular medical floor. She is currently sitting up in bed. Awake and alert in no acute distress. She is maintaining good O2 saturations in the 90s on 4 L/min per nasal cannula. Her procalcitonin was 0.04 on 2 occasions. Microbiology is negative. She remains on DuoNeb ventilations, Pulmicort and performing scintillations. Allergic to steroids. Chest x-ray shows residual patchy densities in the lower lungs. Medial right lower lung airspace disease improved. Blood cultures revealed no growth. Sputum culture revealed no growth. She does have a productive cough of thick sputum. She is continued on Levaquin. The patient is seen today October 24, 2023 in follow-up on the regular medical fl oor. She is awake and alert in no acute distress. Sitting up at the bedside. Denies any worsening shortness of breath. She does have a loose nonproductive cough which is improving. No hemoptysis. Maintaining good O2 saturations in the upper 90s on 2 L/min per nasal cannula. Afebrile. Hemodynamically stable. Blood culture reveals no growth. Sputum culture revealed no growth. She remains on DuoNeb ventilations, Pulmicort and Perforomist inhalation. Antibiotics in the form of Levaquin. Continued on Mucinex. The patient is seen today October 25, 2023 in follow-up on the regular medical floor. She is sitting up at the bedside. Awake and alert in no acute distress. Feeling better today compared to yesterday. She is maintaining good O2 saturations in the 90s on 2 L/min per nasal cannula. No IV fluids. She is continued on Levaquin. She is having some complaints of hoarseness. She remains on DuoNeb inhalations, Pulmicort and Perforomist inhalation. Antibiotics in the form of Levaquin. Continued on Mucinex. Sodium 138. Potassium 4.3. Bicarb 33. BUN 21. Creatinine 1.11. Objective - Vital Signs Vital signs: Vital Signs Temp 98 F 10/25/23 07:18 Pulse 75 10/25/23 11:32 Resp 17 10/25/23 08:00 BP 134/71 10/25/23 07:18 Pulse Ox 99 10/25/23 07:18 FiO2 Intake & Output 10/24/23 10/25/23 10/25/23 18:59 06:59 18:59 Intake Total 900 Balance 900 Intake: Oral 900 Other: Voiding Method Toilet Toilet Toilet # Voids 2 2 - Exam GENERAL EXAM: Alert, 77-year-old female, sitting up at the bedside, on 2 L nasal cannula, in no apparent distress. HEAD: Normocephalic and atraumatic EYES: Normal reaction of pupils, equal size. NOSE: Clear with pink turbinates. THROAT: No erythema or exudates. NECK: No masses, no JVD. CHEST: Barrel chest. LUNGS: Equal air entry with bilateral end expiratory wheeze, few scattered rhonchi. CVS: S1 and S2 normal with no audible murmur, regular rhythm. No extra heart sounds ABDOMEN: No hepatosplenomegaly, active bowel sounds, no guarding or rigidity. SPINE: No scoliosis or deformity SKIN: No rashes CENTRAL NERVOUS SYSTEM: No focal deficits, tone is normal in all 4 extremities. EXTREMITIES: There is 2-3+ bilateral lower extremity pitting edema. There is digital clubbing. Peripheral pulses are intact. - Labs CBC & Chem 7: 10/19/23 18:14 10/25/23 05:15 Labs: Abnormal Lab Results - Last 24 Hours (Table) 10/25/23 Range/Units 05:15 Carbon Dioxide 33 H (22-30) mmol/L BUN 21 H (7-17) mg/dL Creatinine 1.11 H (0.52-1.04) mg/dL Microbiology - Last 24 Hours (Table) 10/19/23 20:37 Blood Culture - Final Blood 10/22/23 14:58 Gram Stain - Final Sputum Sputum Culture - Final Assessment and Plan Assessment: Acute hypoxemic respiratory failure, likely secondary to COPD exacerbation. Procalcitonin negative at 0.04 Acute COPD exacerbation, secondary to above Very severe chronic obstructive pulmonary disease, with an FEV1 23% of predicted, recently self discontinued maintenance inhalers due to reported intolerance. Multiple medication allergies, unfortunately including steroids Benign essential hypertension Chronic lower extremity edema History of hyperlipidemia History of GERD Obesity, with a BMI of 33 kg/m Plan: The patient was seen and evaluated Medications and labs reviewed Discontinue Pulmicort due to hoarseness Titrate down the FiO2 as tolerated May qualify for home oxygen We will continue to follow I have personally seen and examined the patient, performed the documentation and the assessment and plan as written. Number of minutes spent on the visit: 10.
--- NOTE | 2023-10-25 16:25 | P.PN ---
Progress Note - Text Progress Note Date: 10/25/23 77-year-old female came with complaints of cough with sputum production chest tightness patient has a lot of green sputum production. Patient is admitted for pneumonia patient does have infiltrate in the right lower lobes although her procalcitonin is within normal limits patient has multiple drug allergies because of which patient is started on meropenem and Levaquin in the ER. Patient does not have any leukocytosis hemodynamically stable. Patient is negative for influenza RSV and COVID-19. 10/21/2023 Patient was evaluated today at the bedside. She continues to report significant cough with sputum production as well as generalized body and muscle aches. Patient was found to have normal procalcitonin level of 0.04 does continue empirically on IV Levaquin. She was initially recommended for discharge home however patient felt like she was increasingly symptomatic and decision was made to keep the patient hospitalized. Today she has diffuse wheezing throughout all lung pathak. She is having sputum production which was sent for culture. Her oxygen saturation is marginal at 94% on room air. October 21: Sitting edge of the bed. Short of breath. Cough. Bringing up thick creamy sputum. Sent for Gram stain culture. Procalcitonin ordered. October 22: Still coughing up quite a bit of sputum. Short of breath. A bit better. Repeat sputum was sent of yesterday. Eating well. Daughter at the bedside. October 23: Tired. Short of breath. Does not will to go today. DuoNeb. Levaquin. Belies Pulmicort October 24: Sitting at the edge of the bed. Breathing a bit better. Some hoarseness to voice. Nebulized Pulmicort discontinued by pulmonary. Discussed with patient. Hopefully discharge tomorrow. Active Medications Acetaminophen (Acetaminophen Tab 325 Mg Tab) 650 mg PO Q6HR PRN PRN Reason: Fever and/ or Pain Last Admin: 10/25/23 11:12 Dose: 650 mg Albuterol Sulfate (Albuterol Nebulized 2.5 Mg/3 Ml) 2.5 mg INHALATION RT-QID PRN PRN Reason: Shortness Of Breath Albuterol/Ipratropium (Ipratropium-Albuterol 3 Ml Neb) 3 ml INHALATION RT-QID [facility] Last Admin: 10/25/23 15:18 Dose: 3 ml Amlodipine Besylate (Amlodipine 10 Mg Tab) 10 mg PO DAILY [facility] Last Admin: 10/25/23 08:15 Dose: 10 mg Aspirin (Aspirin 81 Mg) 81 mg PO DAILY [facility] Last Admin: 10/25/23 08:16 Dose: 81 mg Atorvastatin Calcium (Atorvastatin 10 Mg Tab) 10 mg PO HS [facility] Last Admin: 10/24/23 22:22 Dose: 10 mg Carvedilol (Carvedilol 6.25 Mg Tab) 6.25 mg PO BID-W/MEALS [facility] Last Admin: 10/25/23 06:22 Dose: 6.25 mg Chlorthalidone (Chlorthalidone 25 Mg Tab) 25 mg PO Q48H [facility] Last Admin: 10/24/23 22:22 Dose: 25 mg Cholecalciferol (Cholecalciferol 25 Mcg (1000 Iu) Tablet) 50 mcg PO DAILY [facility] Last Admin: 10/25/23 08:16 Dose: 50 mcg Enoxaparin Sodium (Enoxaparin 40 Mg/0.4 Ml Syringe) 40 mg SQ DAILY [facility] Last Admin: 10/25/23 08:16 Dose: 40 mg Fluticasone Propionate (Fluticasone 50mcg/[place] Nasal 16gm) 2 spray EA NOSTRIL DAILY [facility] Last Admin: 10/25/23 08:16 Dose: Not Given Formoterol Fumarate (Formoterol Fumarate 20 Mcg/2 Ml Nebu) 20 mcg INHALATION RT-BID [facility] Last Admin: 10/25/23 07:49 Dose: 20 mcg Guaifenesin (Guaifenesin 600 Mg Tablet.Er) 600 mg PO QID [facility] Last Admin: 10/25/23 13:03 Dose: 600 mg Levofloxacin (Levofloxacin 500 Mg Tab) 500 mg PO Q48H [facility]; Protocol Last Admin: 10/23/23 22:25 Dose: 500 mg Losartan Potassium (Losartan 50 Mg Tab) 50 mg PO HS [facility] Last Admin: 10/24/23 22:22 Dose: 50 mg Miscellaneous Information (Pneumonia Protocol Utilized 1 Each Misc) 1 each PO ONCE PRN PRN Reason: Per Protocol Pantoprazole Sodium (Pantoprazole 40 Mg Tablet) 40 mg PO DAILY [facility] Last Admin: 10/25/23 08:16 Dose: 40 mg Petrolatum (Zinc Oxide Paste (Z-Guard) 1 Applic) 1 applic TOPICAL DAILY PRN; Protocol PRN Reason: Wound Healing Physical examination: VITAL SIGNS: 87.9, 73, 17, 1 one 7 x 55, 97% on 3 L GENERAL: Near the edge of the bed, looking a bit better EYES: Pupils equal. Conjunctiva normal. HEENT: External appearance of nose and ears normal, oral cavity grossly normal. NECK: JVD not raised; masses not palpable. HEART: First and second heart sounds are normal; no edema. LUNGS: Respiratory rate normal diminished breath sounds. ABDOMEN: Soft, nontender, liver spleen not palpable, no masses palpable. PSYCH: Alert and oriented x3; mood and affect normal MUSCULOSKELETAL:No Clubbing/cyanosis;muscles-grossly intact. Severe OA especially in the hands INVESTIGATIONS, reviewed in the clinical context: October 24: Potassium 4.3 BUN 21 creatinine 1.11 Chest x-ray film personally reviewed by me-right patchy basilar infiltrate October 21, 2023: Sodium 141 potassium 3.9 BUN 19 creatinine 1.1 Procalcitonin 0.04 Influenza type A, type B, Legionella antigen, RSV, COVID-19: Not detected Sputum culture: Respiratory argenis Assessment and plan: -Community-acquired pneumonia viral in nature patient is continued empirically on levofloxacin patient is a contraindication to taking prednisone/Solu-Medrol due to adverse reactions and will be continued on inhaled steroids.: Better On Levaquin. Per pulmonary Pulmonary following -COPD [FEV1 of 23%] with acute exacerbation mild patient will be continued on inhaled steroids as above. Improving DuoNeb 4 times daily. Nebulized Pulmicort-discontinued Mucinex -Essential hypertension Coreg 6.25 twice daily Cozaar 50 mg nightly. Amlodipine 10 mg a day -Hyperlipidemia Lipitor 10 mg a day -Gastroesophageal reflux disease -Obesity BMI 33.0 Weight loss measures -Full code Discussed with patient. Nebulized Pulmicort started by pulmonary. Plan for discharge tomorrow.
[2023-10-26 13:05] VITALS: BMI 32.9
[2023-10-26 16:00] VITALS: BP 146/76; PULSE 88; RESP 16; TEMP 98.1
--- NOTE | 2023-10-26 18:22 | P.PN ---
Subjective Progress Note Date: 10/26/23 Patient is a 77-year-old white female with past medical history significant for very severe COPD with an FEV1 23% of predicted, hypertension, hyperlipidemia, GERD. Her primary care provider is Dr. Wing. She also follows in the pulmonary office with Dr. Magaña for management of her very severe COPD. She was previously on Advair, but this was reprotedly not covered by her insurance any longer. Since then, she was started on Breztri inhaler with samples. She reports burning in her chest after use. This reportedly started on Thursday. She also reports shortness of breath, a productive cough with yellow to green sputum production, chest congestion and tightness, and chills. She states that she called EMS on Thursday who recommended that she stop taking her Breztri inhaler. Since then, she has progressively worsened. She did go to [place] yesterday evening who evaluated her, diagnosed her with possible pneumonia, and recommended that she come to the emergency room for evaluation. On my evaluation, she is still in the Emergency Department. The patient is currently resting in bed, on 2 L/min nasal cannula, in no acute distress. She denies home O2 use. Chest x-ray done at our facility shows an opacity at the right lung base suspicious for pneumonia. CBC unremarkable. No leukocytosis. CMP also unremarkable. Troponin less than 0.012. NT proBNP 234. EKG showed normal sinus rhythm and nondiagnostic for acute ischemia. She was negative for influenza, RSV, COVID. Secondary to her multiple antibiotic allergies she was placed on a combination of meropenem and Levaquin in the emergency room. Currently afebrile. Overall nontoxic appearance. The patient is seen today October 21, 2023 and follow-up on the regular medical floor. She is currently sitting up in bed. Awake and alert in no acute distress. She is maintaining O2 saturation in the 90s on 2 L/min per nasal cannula. She does have a loose nonproductive cough. Her procalcitonin was negative at 0.04. She has normal saline at 75 mL/h. Blood culture reveals no growth. Sputum culture revealing no growth. Sodium 141. Potassium 3.9. Bicarb 24. BUN 19. Creatinine 1.1. She is continued on Symbicort, albuterol, Levaquin. Heparin for DVT prophylaxis. She cannot take steroids. The patient is seen today October 22, 2023 in follow-up on the regular medical floor. She is awake and alert in no acute distress. Sitting up in bed. She continues with a loose congested cough. Some dyspnea on exertion. She is maintaining O2 saturations in the 90s on 2 L/min per nasal cannula. She is on normal saline at 75 MLS per hour. She continues on Levaquin, DuoNeb inhalation, Symbicort, Mucinex. Lovenox for DVT prophylaxis. The patient is seen today October 23, 2023 in follow-up on the regular medical floor. She is currently sitting up in bed. Awake and alert in no acute distress. She is maintaining good O2 saturations in the 90s on 4 L/min per nasal cannula. Her procalcitonin was 0.04 on 2 occasions. Microbiology is negative. She remains on DuoNeb ventilations, Pulmicort and performing scintillations. Allergic to steroids. Chest x-ray shows residual patchy densities in the lower lungs. Medial right lower lung airspace disease improved. Blood cultures revealed no growth. Sputum culture revealed no growth. She does have a productive cough of thick sputum. She is continued on Levaquin. The patient is seen today October 24, 2023 in follow-up on the regular medical f [place]. She is awake and alert in no acute distress. Sitting up at the bedside. Denies any worsening shortness of breath. She does have a loose nonproductive cough which is improving. No hemoptysis. Maintaining good O2 saturations in the upper 90s on 2 L/min per nasal cannula. Afebrile. Hemodynamically stable. Blood culture reveals no growth. Sputum culture revealed no growth. She remains on DuoNeb ventilations, Pulmicort and Perforomist inhalation. Antibiotics in the form of Levaquin. Continued on Mucinex. The patient is seen today October 25, 2023 in follow-up on the regular medical floor. She is sitting up at the bedside. Awake and alert in no acute distress. Feeling better today compared to yesterday. She is maintaining good O2 saturations in the 90s on 2 L/min per nasal cannula. No IV fluids. She is continued on Levaquin. She is having some complaints of hoarseness. She remains on DuoNeb inhalations, Pulmicort and Perforomist inhalation. Antibiotics in the form of Levaquin. Continued on Mucinex. Sodium 138. Potassium 4.3. Bicarb 33. BUN 21. Creatinine 1.11. On today's evaluation on 10/26/2023, I am seeing the patient for a follow-up. The patient is hospitalized for an acute hypoxic respiratory failure and COPD exacerbation. The patient has severe COPD with FEV1 23% of predicted. Nevertheless, the patient is doing very well at this point in time. No significant complaints and she feels that her overall respiratory is back to her baseline. The patient is currently on oxygen at 2 L with a pulse ox of 99% and the pulse ox remained at 98% on room air oxygen. No new labs are available from today. Creatinine from yesterday was that she is essentially stable and within normal limits. Rest electrolytes are also stable. Objective - Vital Signs Vital signs: Vital Signs Temp 97.8 F 10/26/23 06:53 Pulse 80 10/26/23 12:13 Resp 17 10/26/23 08:20 BP 142/67 10/26/23 06:53 Pulse Ox 99 10/26/23 11:00 FiO2 Intake & Output 10/25/23 10/26/23 10/26/23 18:59 06:59 18:59 Intake Total 480 Balance 480 Intake: Oral 480 Other: Voiding Method Toilet Toilet # Voids 2 2 - Exam GENERAL EXAM: Alert, 77-year-old female, sitting up at the bedside, on 2 L nasal cannula, in no apparent distress. HEAD: Normocephalic and atraumatic EYES: Normal reaction of pupils, equal size. NOSE: Clear with pink turbinates. THROAT: No erythema or exudates. NECK: No masses, no JVD. CHEST: Barrel chest. LUNGS: Equal air entry with bilateral end expiratory wheeze, few scattered rhonchi. CVS: S1 and S2 normal with no audible murmur, regular rhythm. No extra heart sounds ABDOMEN: No hepatosplenomegaly, active bowel sounds, no guarding or rigidity. SPINE: No scoliosis or deformity SKIN: No rashes CENTRAL NERVOUS SYSTEM: No focal deficits, tone is normal in all 4 extremities. EXTREMITIES: There is 2-3+ bilateral lower extremity pitting edema. There is digital clubbing. Peripheral pulses are intact. - Labs CBC & Chem 7: 10/19/23 18:14 10/25/23 05:15 Assessment and Plan Plan: Acute hypoxemic respiratory failure, likely secondary to COPD exacerbation. Procalcitonin negative at 0.04, clinically improved Acute COPD exacerbation, secondary to above Very severe chronic obstructive pulmonary disease, with an FEV1 23% of predicted, recently self discontinued maintenance inhalers due to reported intolerance. Multiple medication allergies, unfortunately including steroids Benign essential hypertension Chronic lower extremity edema History of hyperlipidemia History of GERD Obesity, with a BMI of 33 kg/m Plan: I had a lengthy discussion with the patient. The patient is unable to tolerate prednisone. The patient is unable to tolerate Breztri or Trelegy Ellipta. I asked her to come back to the office following her discharge to discuss treatment options. She should be able to tolerate Symbicort and I recommended discharging her home on Symbicort and DuoNeb updrafts. Oxygen therapy will be also offered to the patient. Follow-up in the office with Dr. Martinez.
--- NOTE | 2023-10-26 20:45 | P.DS ---
Providers Date of admission: 10/19/23 20:19 Expected date of discharge: 10/26/23 Attending physician: Juan Mcfarland Consults: 10/19/23 20:13 Consult Physician Routine Consulting Provider: Loan Magaña Consult Reason/Comments: glenn Do you want consulting provider notified?: Yes Primary care physician: [facility] Course: 77-year-old female came with complaints of cough with sputum production chest tightness patient has a lot of green sputum production. Patient is admitted for pneumonia patient does have infiltrate in the right lower lobes although her procalcitonin is within normal limits patient has multiple drug allergies because of which patient is started on meropenem and Levaquin in the ER. Patient does not have any leukocytosis hemodynamically stable. Patient is negative for influenza RSV and COVID-19. 10/21/2023 Patient was evaluated today at the bedside. She continues to report significant cough with sputum production as well as generalized body and muscle aches. Patient was found to have normal procalcitonin level of 0.04 does continue empirically on IV Levaquin. She was initially recommended for discharge home however patient felt like she was increasingly symptomatic and decision was made to keep the patient hospitalized. Today she has diffuse wheezing throughout all lung pathak. She is having sputum production which was sent for culture. Her oxygen saturation is marginal at 94% on room air. October 21: Sitting edge of the bed. Short of breath. Cough. Bringing up thick creamy sputum. Sent for Gram stain culture. Procalcitonin ordered. October 22: Still coughing up quite a bit of sputum. Short of breath. A bit better. Repeat sputum was sent of yesterday. Eating well. Daughter at the bedside. October 23: Tired. Short of breath. Does not will to go today. DuoNeb. Levaquin. Belies Pulmicort October 24: Sitting at the edge of the bed. Breathing a bit better. Some hoarseness to voice. Nebulized Pulmicort discontinued by pulmonary. Discussed with patient. Hopefully discharge tomorrow. October 25: Doing better. Breathing better. Discussed with the patient. Cleared by pulmonary. Questions answered. Pulse ox 86% on room air with activity. Being discharged on 2 L of oxygen. Discussion and discharge planning more than 35 minutes Physical examination: VITAL SIGNS: 98.1, 88, 16, 146/76, 98% room air GENERAL: Sitting edge of bed, comfortable EYES: Pupils equal. Conjunctiva normal. HEENT: External appearance of nose and ears normal, oral cavity grossly normal. NECK: JVD not raised; masses not palpable. HEART: First and second heart sounds are normal; no edema. LUNGS: Respiratory rate normal diminished breath sounds. ABDOMEN: Soft, nontender, liver spleen not palpable, no masses palpable. PSYCH: Alert and oriented x3; mood and affect normal MUSCULOSKELETAL:No Clubbing/cyanosis;muscles-grossly intact. Severe OA especially in the hands INVESTIGATIONS, reviewed in the clinical context: October 24: Potassium 4.3 BUN 21 creatinine 1.11 Chest x-ray film personally reviewed by me-right patchy basilar infiltrate October 21, 2023: Sodium 141 potassium 3.9 BUN 19 creatinine 1.1 Procalcitonin 0.04 Influenza type A, type B, Legionella antigen, RSV, COVID-19: Not detected Sputum culture: Respiratory argenis Assessment and plan: -Community-acquired pneumonia viral in nature patient is continued empirically on levofloxacin patient is a contraindication to taking prednisone/Solu-Medrol due to adverse reactions and will be continued on inhaled steroids.: Better Discharged on 5 days of Levaquin per pulmonary -COPD [FEV1 of 23%] with acute exacerbation in a prior smoker. Better DuoNeb 4 times daily. Nebulized Pulmicort-discontinued Discharged on Breo Ellipta. -Acute hypoxic respiratory failure from COPD exacerbation -Chronic hypoxic respiratory failure from COPD -Essential hypertension Coreg 6.25 twice daily Cozaar 50 mg nightly. Amlodipine 10 mg a day -Hyperlipidemia Lipitor 10 mg a day -Gastroesophageal reflux disease -Obesity BMI 33.0 Weight loss measures -Full code Disposition: Home Plan - Discharge Summary Discharge Rx Participant: Yes New Discharge Prescriptions: New Fluticasone/Vilanterol [Breo Ellipta 100-25 Mcg Inhalr] 1 each IH BID #1 each Losartan [Cozaar] 50 mg PO HS #30 tab Levofloxacin [Levaquin] 500 mg PO DAILY 5 Days #5 tab Continue Albuterol Nebulized [Ventolin Nebulized] 2.5 mg INHALATION RT-QID PRN PRN Reason: Shortness Of Breath Pantoprazole [Protonix] 40 mg PO DAILY Aspirin 81 mg PO DAILY amLODIPine [Norvasc] 10 mg PO DAILY carvediloL [Coreg] 6.25 mg PO BID-W/MEALS Chlorthalidone 25 mg PO Q48H Fluticasone Nasal [place] [Flonase Nasal [place]] 2 spray EA NOSTRIL DAILY Albuterol Sulfate [Albuterol Sulfate Hfa] 2 puff PO RT-QID PRN PRN Reason: Shortness Of Breath Atorvastatin [Lipitor] 10 mg PO HS #30 tab Cholecalciferol (Vitamin D3) [Vitamin D3 (50 Mcg = 2000 Iu)] 50 mcg PO DAILY Discontinued Losartan Potassium [Cozaar] 100 mg PO HS #30 tab Discharge Medication List Albuterol Nebulized [Ventolin Nebulized] 2.5 mg INHALATION RT-QID PRN 08/01/22 [History] Albuterol Sulfate [Albuterol Sulfate Hfa] 2 puff PO RT-QID PRN 08/01/22 [His tory] Aspirin 81 mg PO DAILY 08/01/22 [History] Fluticasone Nasal [place] [Flonase Nasal [place]] 2 spray EA NOSTRIL DAILY 08/01/22 [History] Pantoprazole [Protonix] 40 mg PO DAILY 08/01/22 [History] amLODIPine [Norvasc] 10 mg PO DAILY 08/01/22 [History] Atorvastatin [Lipitor] 10 mg PO HS #30 tab 08/02/22 [Rx] Chlorthalidone 25 mg PO Q48H 10/19/23 [History] Cholecalciferol (Vitamin D3) [Vitamin D3 (50 Mcg = 2000 Iu)] 50 mcg PO DAILY 10/19/23 [History] carvediloL [Coreg] 6.25 mg PO BID-W/MEALS 10/19/23 [History] Fluticasone/Vilanterol [Breo Ellipta 100-25 Mcg Inhalr] 1 each IH BID #1 each 10/20/23 [Rx] Levofloxacin [Levaquin] 500 mg PO DAILY 5 Days #5 tab 10/20/23 [Rx] Losartan [Cozaar] 50 mg PO HS #30 tab 10/26/23 [Rx] Follow up Appointment(s)/Referral(s): Loan Magaña MD [STAFF PHYSICIAN] - 11/09/23 1:30 pm Nitin Wing DO [Primary Care Provider] - 1-2 Days (office will call with appointment time) [facility] [NON-STAFF] - As Needed (*Please call [facility] once home to arrange delivery of the oxygen concentrator. ) Discharge Disposition: HOME SELF-CARE
== END 2023-10-26 16:14 | disposition home or self-care (01) | DRG 193 ==
LOC: EC 16:29 → 4SSUR 20:19
PROVIDERS: ADMIT Hospitalist; ATTEND Hospitalist
DX: J18.9 Pneumonia, unspecified organism (principal); J96.21 Acute and chronic respiratory failure with hypoxia; J44.0 Chronic obstructive pulmonary disease with (acute) lower respiratory infection; J44.1 Chronic obstructive pulmonary disease with (acute) exacerbation; E66.9 Obesity, unspecified; I10 Essential (primary) hypertension; Z68.33 Body mass index [BMI] 33.0-33.9, adult; K21.9 Gastro-esophageal reflux disease without esophagitis; E78.5 Hyperlipidemia, unspecified; R60.0 Localized edema; Z86.73 Personal history of transient ischemic attack (TIA), and cerebral infarction without residual deficits; Z87.891 Personal history of nicotine dependence; Z79.82 Long term (current) use of aspirin; Z79.899 Other long term (current) drug therapy; Z79.51 Long term (current) use of inhaled steroids; Z11.52 Encounter for screening for COVID-19; Z88.8 Allergy status to other drugs, medicaments and biological substances; Z88.6 Allergy status to analgesic agent; Z88.1 Allergy status to other antibiotic agents; Z91.040 Latex allergy status; Z91.011 Allergy to milk products; Z88.2 Allergy status to sulfonamides; Z91.018 Allergy to other foods; Z88.0 Allergy status to penicillin
CPT/HCPCS: 36415; 71045; 71046; 80048; 80053; 83605; 83735; 83880; 84145; 84484; 85025; 85379; 85610; 85730; 87040; 87070; 87205; 87449; 87636; 93005; 94640; 94760; 96361; 96365; 96366; 96367; 96372; 96375; 99291

== ENCOUNTER 2023-10-27 23:14 | Observation (INO) | payer MEDICARE ==
--- NOTE | 2023-10-27 23:24 | ED ---
General Adult HPI <Damon Moran - Last Filed: 10/27/23 23:24> - General Source: patient, RN notes reviewed Mode of arrival: EMS Limitations: no limitations <Yi Brooks - Last Filed: 10/28/23 03:13> - General Stated complaint: Difficulty Breathing Time Seen by Provider: 10/27/23 23:22 - History of Present Illness Initial comments: 77-year-old female with a past medical history significant for COPD presenting to the ED with complaints of dyspnea. Patient recently discharged from this facility on home oxygen. EMS reports patient was not wearing oxygen upon arrival. However, since she has been having oxygen on reports no significant improvement. (Damon Moran) 77-year-old female presented to the ER via EMS with chief complaint shortness of breath. Has a past medical history significant of COPD. She states she was recently hospitalized and discharged yesterday treated for bronchial pneumonia. She was discharged home on 2 L nasal cannula oxygen. She also was discharged with levofloxacin and an inhaler that she "cannot use". She states she is allergic to the medication. She states that throughout the day today she has been having increasing shortness of breath and a tightness sensation across her bilateral shoulders. She denies any chest pain, dizziness, lightheadedness. Sh e states she did for nebulized albuterol treatments without improvement. (Yi Brooks) - Related Data Home Medications Medication Instructions Recorded Confirmed Albuterol Nebulized [Ventolin 2.5 mg INHALATION RT-QID PRN 08/01/22 10/19/23 Nebulized] Albuterol Sulfate [Albuterol 2 puff PO RT-QID PRN 08/01/22 10/19/23 Sulfate Hfa] Aspirin 81 mg PO DAILY 08/01/22 10/19/23 Fluticasone Nasal [place] [Flonase 2 spray EA NOSTRIL DAILY 08/01/22 10/19/23 Nasal [place]] Pantoprazole [Protonix] 40 mg PO DAILY 08/01/22 10/19/23 amLODIPine [Norvasc] 10 mg PO DAILY 08/01/22 10/19/23 Chlorthalidone 25 mg PO Q48H 10/19/23 10/19/23 Cholecalciferol (Vitamin D3) 50 mcg PO DAILY 10/19/23 10/19/23 [Vitamin D3 (50 Mcg = 2000 Iu)] carvediloL [Coreg] 6.25 mg PO BID-W/MEALS 10/19/23 10/19/23 Previous Rx's Medication Instructions Recorded Atorvastatin [Lipitor] 10 mg PO HS #30 tab 08/02/22 Fluticasone/Vilanterol [Breo 1 each IH BID #1 each 10/20/23 Ellipta 100-25 Mcg Inhalr] Levofloxacin [Levaquin] 500 mg PO DAILY 5 Days #5 tab 10/20/23 Losartan [Cozaar] 50 mg PO HS #30 tab 10/26/23 Allergies Allergy/AdvReac Type Severity Reaction Status Date / Time cefuroxime Allergy Rash/Hives Verified 10/27/23 23:28 clarithromycin [From Biaxin] Allergy Anaphylaxis, Verified 10/27/23 23:28 hives ibuprofen [From Motrin] Allergy Anaphylaxis, Verified 10/27/23 23:28 hives latex Allergy Rash/Hives Verified 10/27/23 23:28 milk Allergy Rash/Hives Verified 10/27/23 23:28 raspberry Allergy Rash/Hives Verified 10/27/23 23:28 Sulfa (Sulfonamide Allergy Anaphylaxis Verified 10/27/23 23:28 Antibiotics) cephalexin [From Keflex] AdvReac none, per Verified 10/27/23 23:28 patient Penicillins AdvReac Anaphylaxis, Verified 10/27/23 23:28 hives prednisone AdvReac Hallucinati Verified 10/27/23 23:28 ons Review of Systems ROS Other: All systems not noted in ROS Statement are negative. <Damon Moran - Last Filed: 10/27/23 23:24> ROS Other: All systems not noted in ROS Statement are negative. <Yi Brooks - Last Filed: 10/28/23 03:13> ROS Statement: Those systems with pertinent positive or pertinent negative responses have been documented in the HPI. 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 Absent: scleral icterus, conjunctival injection, periorbital swelling Respiratory exam: Present: wheezes (Left and right upper lobe) Cardiovascular Exam: Present: regular rate, normal rhythm, normal heart sounds. Absent: systolic murmur, diastolic murmur, rubs, gallop, clicks Extremities exam: Present: normal inspection, full ROM, normal capillary refill. Absent: tenderness, pedal edema, joint swelling, calf tenderness Skin exam: Present: warm, dry, intact, normal color. Absent: rash <Yi Brooks - Last Filed: 10/28/23 03:13> - General Exam Comments Initial Comments: Visual Physical Exam Vital signs reviewed General: Well-appearing, nontoxic, no acute distress. Head: Normocephalic, atraumatic Eyes: PERRLA, EOMI ENT: Airway patent Chest: Nonlabored breathing Skin: No visual rash, normal skin tone Neuro: Alert and oriented 3 Musculoskeletal: No gross abnormalities (Damon Moran) Course <Yi Brooks - Last Filed: 10/28/23 03:13> Vital Signs 10/27/23 10/28/23 10/28/23 23:19 00:53 01:00 Temperature 98.1 F Pulse Rate 87 81 Respiratory 18 22 Rate Blood Pressure 159/83 O2 Sat by Pulse 98 Oximetry 10/28/23 10/28/23 01:10 02:39 Temperature Pulse Rate 85 86 Respiratory 20 Rate Blood Pressure 127/68 O2 Sat by Pulse 99 Oximetry - Reevaluation(s) Reevaluation #1: 10/28/23 03:[address] Mcfarland who accepts medical admission. (Yi Brooks) Medical Decision Making <Damon Moran - Last Filed: 10/27/23 23:24> - Lab Data Result diagrams: 10/28/23 00:30 10/28/23 00:30 - EKG Data -: EKG Interpreted by Me - Radiology Data Radiology results: report reviewed, image reviewed <Yi Brooks - Last Filed: 10/28/23 03:13> - Medical Decision Making Quicknote portion performed. Signed Damon Moran PA-C (Damon Moran) Was pt. sent in by a medical professional or institution (, [facility], [employer], urgent care, hospital, or residential...) When possible be specific @ -No Did you speak to anyone other than the patient for history (EMS, parent, family, police, friend...)? What history was obtained from this source @ -Daughter aiding with HPI and PMHx. Did you review nursing and triage notes (agree or disagree)? Why? @ -I reviewed and agree with nursing and triage notes Were old charts reviewed (outside hosp., previous admission, EMS record, old EKG, old radiological studies, urgent care reports/EKG's, residential records)? Report findings @ -Yes I reviewed old charts and admission from 10-19-2023. Patient admitted for pneumonia and COPD. Discharged on . Differential Diagnosis (chest pain, altered mental status, abdominal pain women, abdominal pain men, vaginal bleeding, weakness, fever, dyspnea, syncope, headache, dizziness, GI bleed, back pain, seizure, CVA, palpatations, mental health, musculoskeletal)? @ -Differential Dyspnea:Coronary syndrome, arrhythmia, tamponade, asthma, COPD, pulmonary embolism, pneumonia, pneumothorax, pulmonary effusion, anaphylaxis, diabetic ketoacidosis, flailed chest, pulmonary contusion, diaphragmatic rupture, anemia, neuromuscular, this is not meant to be an all-inclusive list. EKG interpreted by me (3pts min.). @ -As above X-rays interpreted by me (1pt min.). @ -Chest x-ray interpreted me negative for acute cardiopulmonary process. CT interpreted by me (1pt min.). @ -None done U/S interpreted by me (1pt. min.). @ -None done What testing was considered but not performed or refused? (CT, X-rays, U/S, labs)? Why? @ -None What meds were considered but not given or refused? Why? @ -None Did you discuss the management of the patient with other professionals (professionals i.e. , PA, [employer]ER, lab, RT, psych nurse, social worker psychiatric, manager behavioral, teacher, senior credit officer, adult protective caseworker)? Give summary @ -Yes, case discussed with Dr. Mcfarland accepts medical admission. Was smoking cessation discussed for >3mins.? @ -No Was critical care preformed (if so, how long)? @ -No Were there social determinants of health that impacted care today? How? (Home lessness, low income, unemployed, alcoholism, drug addiction, transportation, low edu. Level, literacy, decrease access to med. care, longterm, rehab)? @ -No Was there de-escalation of care discussed even if they declined (Discuss DNR or withdrawal of care, Hospice)? DNR status @ -No What co-morbidities impacted this encounter? (DM, HTN, Smoking, COPD, CAD, Cancer, CVA, ARF, Chemo, Hep., AIDS, mental health diagnosis, sleep apnea, morbid obesity)? @ -COPD Was patient admitted / discharged? Hospital course, mention meds given and route, prescriptions, significant lab abnormalities, going to OR and other pertinent info. @ -Admitted. 77-year-old female presenting to the ER via EMS with chief c omplaint of dyspnea. History and physical exam completed. Vitals stable. Patient in no signs of acute distress and nontoxic-appearing. Laboratory studies obtained remarkable for JAIME (BUN 20, creatinine 1.10) otherwise unremarkable. Urine without signs of infection. COVID, RSV, influenza negative. Chest x-ray interpreted by me negative for acute cardiopulmonary process. Patient received DuoNeb treatment in ER. Upon reevaluation, patient stating she still felt shortness of breath and did not feel comfortable with discharge. Case discussed with Dr. Mcfarland accepts medical observation. Patient started on levofloxacin. Pulmonology on consult. Patient in agreement with plan. Case discussed with ED attending, Dr. Temple. Undiagnosed new problem with uncertain prognosis? @ -No Drug Therapy requiring intensive monitoring for toxicity (Heparin, Nitro, Insulin, Cardizem)? @ -No Were any procedures done? @ -No Diagnosis/symptom? @ -COPD exacerbation Acute, or Chronic, or Acute on Chronic? @ -Acute on chronic Uncomplicated (without systemic symptoms) or Complicated (systemic symptoms)? @ -Uncomplicated Side effects of treatment? @ -No Exacerbation, Progression, or Severe Exacerbation? @ -Exacerbation Poses a threat to life or bodily function? How? (Chest pain, USA, PA, pneumonia, PE, COPD, DKA, ARF, appy, cholecystitis, CVA, Diverticulitis, Homicidal, Suicidal, threat to staff... and all critical care pts) @ -Possibly (Yi Brooks) - Lab Data Lab Results 10/28/23 10/28/23 10/28/23 Range/Units 00:30 00:30 00:30 WBC 7.7 (3.8-10.6) k/uL RBC 4.38 (3.80-5.40) m/uL Hgb 12.5 (11.4-16.0) gm/dL Hct 39.4 (34.0-46.0) % MCV 89.9 (80.0-100.0) fL MCH 28.6 (25.0-35.0) pg MCHC 31.8 (31.0-37.0) g/dL RDW 12.7 (11.5-15.5) % Plt Count 186 (150-450) k/uL MPV 7.9 Neutrophils % 75 % Lymphocytes % 10 % Monocytes % 9 % Eosinophils % 4 % Basophils % 0 % Neutrophils # 5.8 (1.3-7.7) k/uL Lymphocytes # 0.8 L (1.0-4.8) k/uL Monocytes # 0.7 (0-1.0) k/uL Eosinophils # 0.3 (0-0.7) k/uL Basophils # 0.0 (0-0.2) k/uL Sodium 136 L (137-145) mmol/L Potassium 3.9 (3.5-5.1) mmol/L Chloride 102 (98-107) mmol/L Carbon Dioxide 31 H (22-30) mmol/L Anion Gap 3 mmol/L BUN 20 H (7-17) mg/dL Creatinine 1.10 H (0.52-1.04) mg/dL Est GFR (CKD-EPI)AfAm 56 (>60 ml/min/1.73 sqM) Est GFR (CKD-EPI)NonAf 49 (>60 ml/min/1.73 sqM) Glucose 101 H (74-99) mg/dL Calcium 9.0 (8.4-10.2) mg/dL Total Bilirubin 0.4 (0.2-1.3) mg/dL AST 32 (14-36) U/L ALT 30 (4-34) U/L Alkaline Phosphatase 117 (38-126) U/L Total Protein 6.3 (6.3-8.2) g/dL Albumin 3.9 (3.5-5.0) g/dL Urine Color Urine Appearance (Clear) Urine pH (5.0-8.0) Ur Specific [place] (1.001-1.035) Urine Protein (Negative) Urine Glucose (UA) (Negative) Urine Ketones (Negative) Urine Blood (Negative) Urine Nitrite (Negative) Urine Bilirubin (Negative) Urine Urobilinogen (<2.0) mg/dL Ur Leukocyte Esterase (Negative) Urine RBC (0-5) /hpf Urine WBC (0-5) /hpf Ur Squamous Epith Cells (0-4) /hpf Urine Bacteria (None) /hpf Influenza Type A (PCR) Not Detected (Not Detectd) Influenza Type B (PCR) Not Detected (Not Detectd) RSV (PCR) Not Detected (Not Detectd) SARS-CoV-2 (PCR) Not Detected (Not Detectd) 10/28/23 Range/Units 00:35 WBC (3.8-10.6) k/uL RBC (3.80-5.40) m/uL Hgb (11.4-16.0) gm/dL Hct (34.0-46.0) % MCV (80.0-100.0) fL MCH (25.0-35.0) pg MCHC (31.0-37.0) g/dL RDW (11.5-15.5) % Plt Count (150-450) k/uL MPV Neutrophils % % Lymphocytes % % Monocytes % % Eosinophils % % Basophils % % Neutrophils # (1.3-7.7) k/uL Lymphocytes # (1.0-4.8) k/uL Monocytes # (0-1.0) k/uL Eosinophils # (0-0.7) k/uL Basophils # (0-0.2) k/uL Sodium (137-145) mmol/L Potassium (3.5-5.1) mmol/L Chloride (98-107) mmol/L Carbon Dioxide (22-30) mmol/L Anion Gap mmol/L BUN (7-17) mg/dL Creatinine (0.52-1.04) mg/dL Est GFR (CKD-EPI)AfAm (>60 ml/min/1.73 sqM) Est GFR (CKD-EPI)NonAf (>60 ml/min/1.73 sqM) Glucose (74-99) mg/dL Calcium (8.4-10.2) mg/dL Total Bilirubin (0.2-1.3) mg/dL AST (14-36) U/L ALT (4-34) U/L Alkaline Phosphatase (38-126) U/L Total Protein (6.3-8.2) g/dL Albumin (3.5-5.0) g/dL Urine Color Colorless Urine Appearance Clear (Clear) Urine pH 5.5 (5.0-8.0) Ur Specific [place] 1.009 (1.001-1.035) Urine Protein Negative (Negative) Urine Glucose (UA) Negative (Negative) Urine Ketones Negative (Negative) Urine Blood Negative (Negative) Urine Nitrite Negative (Negative) Urine Bilirubin Negative (Negative) Urine Urobilinogen <2.0 (<2.0) mg/dL Ur Leukocyte Esterase Moderate H (Negative) Urine RBC 1 (0-5) /hpf Urine WBC 10 H (0-5) /hpf Ur Squamous Epith Cells 2 (0-4) /hpf Urine Bacteria Rare H (None) /hpf Influenza Type A (PCR) (Not Detectd) Influenza Type B (PCR) (Not Detectd) RSV (PCR) (Not Detectd) SARS-CoV-2 (PCR) (Not Detectd) - EKG Data EKG Comments: EKG at 00: 20 showing a sinus rhythm with no acute ST segment or T wave abnormalities. Ventricular rate 85, SC interval 145, QRS duration 80, QT/QTc 357/399. (Yi Brooks) Disposition <Damon Moran - Last Filed: 10/27/23 23:24> Time of Disposition: 01:57 <Yi Brooks - Last Filed: 10/28/23 03:13> Clinical Impression: Acute exacerbation of chronic obstructive pulmonary disease Disposition: ADMITTED IP TO THIS HOSP Condition: Good
[2023-10-28 00:49] LABS: Basophils % (A) 0 %; Eosinophils # (A) 0.3 k/uL (0-0.7); Eosinophils % (A) 4 %; HCT 39.4 % (34.0-46.0); HGB 12.5 gm/dL (11.4-16.0); Lymphocytes # (A) 0.8 k/uL (1.0-4.8); Lymphocytes % (A) 10 %; MCH 28.6 pg (25.0-35.0); MCHC 31.8 g/dL (31.0-37.0); MCV 89.9 fL (80.0-100.0); Mean Platelet Volume 7.9; Monocytes # (A) 0.7 k/uL (0-1.0); Monocytes % (A) 9 %; Neutrophils # (A) 5.8 k/uL (1.3-7.7); Neutrophils % (A) 75 %; Platelet Count 186 k/uL (150-450); RBC 4.38 m/uL (3.80-5.40); RDW 12.7 % (11.5-15.5); WBC 7.7 k/uL (3.8-10.6)
[2023-10-28 00:54] LABS: Appearance,Urine Clear (Clear); Bacteria,Urine Rare /hpf; Bilirubin,Urine Negative (Negative); Blood,Urine Negative (Negative); Color,Urine Colorless; Glucose,Urine (UA) Negative (Negative); Ketones,Urine Negative (Negative); Leukocyte Esterase,Urine Moderate (Negative); Nitrite,Urine Negative (Negative); PH, Urine 5.5 (5.0-8.0); Protein,Urine Negative (Negative); RBC,Urine 1 /hpf (0-5); Specific Gravity,Urine 1.009 (1.001-1.035); Squamous Epithelial Cell,Urine 2 /hpf (0-4); Urobilinogen,Urine <2.0 mg/dL (<2.0); WBC,Urine 10 /hpf (0-5)
[2023-10-28] MEDS: IPRATROPIUM-ALBUTEROL 3 ML NEB INHALATION STA (00:58)
[2023-10-28 00:59] LABS: ALT 30 U/L (4-34); AST 32 U/L (14-36); African American GFR (CKD) 56 (>60 ml/min/1.73 sqM); Albumin 3.9 g/dL (3.5-5.0); Alkaline Phosphatase 117 U/L (38-126); Anion Gap 3 mmol/L; Blood Urea Nitrogen 20 mg/dL (7-17); Carbon Dioxide 31 mmol/L (22-30); Chloride 102 mmol/L (98-107); Glucose 101 mg/dL (74-99); Non-African American GFR(CKD) 49 (>60 ml/min/1.73 sqM); Potassium 3.9 mmol/L (3.5-5.1); Sodium 136 mmol/L (137-145); Total Bilirubin 0.4 mg/dL (0.2-1.3); Total Protein 6.3 g/dL (6.3-8.2)
--- NOTE | 2023-10-28 01:03 | XR ---
EXAM: XR Chest, 2 Views CLINICAL HISTORY: ITS.REASON XR Reason: dyspnea TECHNIQUE: Frontal and lateral views of the chest. COMPARISON: No relevant prior studies available. FINDINGS: Lungs: COPD. No consolidation. Pleural space: Unremarkable. No pneumothorax. Heart: Cardiomegaly. Mediastinum: Unremarkable. Normal mediastinal contour. Bones/joints: Unremarkable. No acute fracture. IMPRESSION: No acute findings in the chest.
[2023-10-28] MEDS ORDERED: ACETAMINOPHEN TAB 325 MG TAB PO PRN (01:38)
[2023-10-28] MEDS ORDERED: NALOXONE 0.4 MG/ML 1 ML VIAL IV PRN (01:38)
[2023-10-28] MEDS: LEVOFLOXACIN 250 MG TAB PO STA (02:37)
--- NOTE | 2023-10-28 04:04 | P.CNPUL ---
History of Present Illness Consult date: 10/28/23 Requesting physician: Damon Moran Reason for consult: COPD Chief complaint: Shortness of breath History of present illness: Patient is a 77-year-old white female with past medical history significant for very severe COPD with an FEV1 23% of predicted, hypertension, hyperlipidemia, GERD. Her primary care provider is Dr. Wing. She also follows in the pulmonary office with Dr. Magaña for management of her very severe COPD. Patient was discharged from the hospital approximately 24 hours ago, and states that she was feeling well on discharge. She was discharged on a Breo Ellipta inhaler, which she says she does not tolerate. It causes a "burning" across her upper back immediately after use. No upper airway edema or stridor. No rashes. She has multiple medication intolerances, including multiple inhalers. She states that she was doing well on the budesonide and formoterol inhalations while inpatient. While at home, she was short of breath. She tried her albuterol nebulizer, without much relief. When EMS arrived, she was not wearing her home oxygen, which she was discharged home with. She is currently in the emergency department, room 22. She is sitting at the edge of the stretcher. She is on 2 L/min nasal cannula. SpO2 is 99%. She continues to have a intermittent cough. She states that she occasionally has sputum production which is yellow tinge. Overall improved sputum purulence. Denies any fevers, chest pain, hemoptysis. On her previous admission she was started on Levaquin which was continued upon discharge. Of note, procalcitonin on previous admiss ion was low at 0.04. Repeat chest x-ray does not show any focal consolidations or evidence of pneumonia. CBC does not show any leukocytosis. BMP unremarkable. Again negative for influenza, RSV, COVID. Afebrile. Nontoxic appearance. Hemodynamically stable. Review of Systems REVIEW OF SYSTEMS: CONSTITUTIONAL: Denies any recent significant weight loss or weight gain. EYES: Denies change in vision. EARS, NOSE, MOUTH, THROAT: Denies headaches, denies sore throat. CARDIOVASCULAR: Denies chest pain, palpitations or syncopal episodes. RESPIRATORY: See HPI GASTROINTESTINAL: Denies change in appetite, abdominal pain, nausea and vomiting, or diarrhea GENITOURINARY: Denies hematuria, denies infections. MUSKULOSKELETAL: Denies pain, denies swelling. INTEGUMENTARY: Denies rash, denies eczema. NEUROLOGICAL: Denies recent memory loss, no recent seizure activity. PSYCHIATRIC: Denies anxiety, denies depression. 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 History of Any Multi-Drug Resistant Organisms: None Reported Past Surgical History: Hysterectomy Past Anesthesia/Blood Transfusion Reactions: No Reported Reaction Smoking Status: Former smoker Medications and Allergies Home Medications Medication Instructions Recorded Confirmed Type Albuterol Nebulized [Ventolin 2.5 mg INHALATION RT-QID PRN 08/01/22 10/28/23 History Nebulized] Albuterol Sulfate [Albuterol 2 puff PO RT-QID PRN 08/01/22 10/28/23 History Sulfate Hfa] Aspirin 81 mg PO DAILY 08/01/22 10/28/23 History Fluticasone Nasal [place] [Flonase 2 spray EA NOSTRIL DAILY 08/01/22 10/28/23 History Nasal [place]] Pantoprazole [Protonix] 40 mg PO DAILY 08/01/22 10/28/23 History amLODIPine [Norvasc] 10 mg PO DAILY 08/01/22 10/28/23 History Atorvastatin [Lipitor] 10 mg PO HS #30 tab 08/02/22 10/28/23 Rx Chlorthalidone 25 mg PO Q48H 10/19/23 10/28/23 History Cholecalciferol (Vitamin D3) 50 mcg PO DAILY 10/19/23 10/28/23 History [Vitamin D3 (50 Mcg = 2000 Iu)] carvediloL [Coreg] 6.25 mg PO BID-W/MEALS 10/19/23 10/28/23 History Fluticasone/Vilanterol [Breo 1 each IH BID #1 each 10/20/23 10/28/23 Rx Ellipta 100-25 Mcg Inhalr] Levofloxacin [Levaquin] 500 mg PO DAILY 5 Days #5 tab 10/20/23 10/28/23 Rx Losartan [Cozaar] 50 mg PO HS #30 tab 10/26/23 10/28/23 Rx Allergies Allergy/AdvReac Type Severity Reaction Status Date / Time cefuroxime Allergy Rash/Hives Verified 10/28/23 08:13 clarithromycin [From Biaxin] Allergy Anaphylaxis, Verified 10/28/23 08:13 hives ibuprofen [From Motrin] Allergy Anaphylaxis, Verified 10/28/23 08:13 hives latex Allergy Rash/Hives Verified 10/28/23 08:13 milk Allergy Rash/Hives Verified 10/28/23 08:13 raspberry Allergy Rash/Hives Verified 10/28/23 08:13 Sulfa (Sulfonamide Allergy Anaphylaxis Verified 10/28/23 08:13 Antibiotics) cephalexin [From Keflex] AdvReac none, per Verified 10/28/23 08:13 patient Penicillins AdvReac Anaphylaxis, Verified 10/28/23 08:13 hives prednisone AdvReac Hallucinati Verified 10/28/23 08:13 ons Physical Exam Vitals: Vital Signs Temp Pulse Resp BP Pulse Ox 10/28/23 02:39 86 20 127/68 99 10/28/23 01:10 85 10/28/23 01:00 81 10/28/23 00:53 22 10/27/23 23:19 98.1 F 87 18 159/83 98 Intake and Output 10/27/23 10/27/23 10/28/23 14:59 22:59 06:59 Other: Weight 63.503 kg GENERAL EXAM: Alert, 77-year-old white female, comfortable in no apparent distress. HEAD: Normocephalic and atraumatic EYES: Normal reaction of pupils, equal size. NOSE: Clear with pink turbinates. THROAT: No erythema or exudates. NECK: No masses, no JVD. CHEST: Barrel chest LUNGS: Equal air entry with faint and expiratory wheezes heard bilaterally. No crackles, rhonchi or dullness. No conversational dyspnea or accessory muscle use.. Intermittent congested cough. CVS: S1 and S2 normal with no audible murmur, regular rhythm. No extra heart sounds ABDOMEN: No hepatosplenomegaly, active bowel sounds, no guarding or rigidity. SPINE: No scoliosis or deformity SKIN: No rashes CENTRAL NERVOUS SYSTEM: No focal deficits, tone is normal in all 4 extremities. EXTREMITIES: Digital clubbing noted. There is no peripheral edema or cyanosis. Peripheral pulses are intact. Results - Laboratory Findings CBC and BMP: 10/28/23 00:30 10/28/23 00:30 Abnormal lab findings: Abnormal Labs 10/28/23 10/28/23 10/28/23 00:30 00:30 00:35 Lymphocytes # 0.8 L Sodium 136 L Carbon Dioxide 31 H BUN 20 H Creatinine 1.10 H Glucose 101 H Ur Leukocyte Esterase Moderate H Urine WBC 10 H Urine Bacteria Rare H - Diagnostic Findings Chest x-ray: image reviewed Assessment and Plan Assessment: Acute COPD exacerbation, patient was discharged from the hospital less than 24 hours ago. Chest x-ray does not show any focal infiltrates or evidence of pneumonia. Procalcitonin was previously low at 0.04. Again negative for influenza, RSV, COVID. Will resume treatment for acute COPD exacerbation. Very severe chronic obstructive pulmonary disease, with an FEV1 23% of predicted, Patient has multiple inhaler intolerances. She was discharged on Breo Ellipta inhaler, which she reportedly did not tolerate. She was having burning across her back immediately after use. She also has previous reported intolerance to Breztri. It seems the only maintenance inhalers that she can use are Advair or Symbicort, but her insurance will reportedly not cover these. Multiple medication allergies, unfortunately including prednisone Benign essential hypertension Chronic lower extremity edema, improved History of hyperlipidemia History of GERD Obesity, with a BMI of 33 kg/m Plan: Patient was readmitted to the hospital for continued management of her acute COPD exacerbation. She continues on 2 L/min nasal cannula. SpO2 99%. Chest x-ray was reviewed, no evidence of focal infiltrates or pneumonia. Procalcitonin was noted to be low on previous admission. She has completed 7 days of Levaquin Again negative for influenza, RSV, COVID Continue combination of Symbicort inhaler and DuoNebs [id number] Will continue to follow I have personally seen and examined the patient, performed the documentation and the assessment and plan as written. Number of minutes spent on the visit:20 This is a joint evaluation that was done along with the nurse practitioner. The patient was seen and evaluated. Patient was readmitted immediately following her discharge. Apparently the patient was feeling feeling short of breath and hypoxic. H as mentioned, the patient was unable to tolerate any maintenance respiratory medications. She has been tried on Breztri and Trelegy Ellipta in the past which gave her side effects. She is unable to take any form of systemic steroids. She cannot tolerate Symbicort/Advair. This will be started on this patient. This will be using combination of the bronchodilators. She will need oxygen therapy. She has been COPD with an FEV1 of 23% of predicted. Long-term prognosis poor based on above-mentioned comorbidities. She has completed a course of antibiotics. Chest x-ray shows no focal infiltrates. Currently on 2 L with a pulse ox of 99%. Viral screen has been negative. Evaluation was done more than 30 minutes. Time with Patient: Greater than 30
[2023-10-28] MEDS: IPRATROPIUM-ALBUTEROL 3 ML NEB INHALATION SCH (08:10)
[2023-10-28] MEDS: SYMBICORT 160-4.5 MCG INHALER INHALATION SCH (08:10)
[2023-10-28] MEDS: PANTOPRAZOLE 40 MG TABLET PO SCH (10:34)
[2023-10-28] MEDS: amLODIPine 10 MG TAB PO SCH (10:34)
[2023-10-28] MEDS: ASPIRIN 81 MG PO SCH (10:34)
[2023-10-28] MEDS: carvediloL 6.25 MG TAB PO SCH (10:34)
[2023-10-28] MEDS: guaiFENesin 600 MG TABLET.ER PO SCH (10:35)
[2023-10-28] MEDS: ENOXAPARIN 40 MG/0.4 ML SYRINGE SQ SCH (10:35)
[2023-10-28 14:17] VITALS: BMI 31.8
--- NOTE | 2023-10-28 16:14 | P.HPIM ---
History of Present Illness H&P Date: 10/28/23 Chief Complaint: Tired 77-year-old patient, follows with Dr. Wing. 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 Magaña. Patient just in the hospital from October 18 through October 25. Was admitted with pneumonia and COPD exacerbation. Patient doing well by time of discharge. Patient discharged on 5 days of Levaquin by pulmonary. Patient went went home was feeling well. She started on Breo Ellipta. Did not feel right after taking that same. Decreased appetite. [place] tired. Some shortness of breath. Admitted for the same. Some congested cough. Very little expectoration. No fever no chills. Has been started on Symbicort. Tolerating that better. Per pulmonary she is also had some intolerance to Breztri. Her insurance will not cover Symbicort or Advair. Review of systems: GEN.: Tired, decreased appetite EYES: None HEENT: None NECK: None RESPIRATORY: As above CARDIOVASCULAR: None GASTROINTESTINAL: None GENITOURINARY: None MUSCULOSKELETAL: None LYMPHATICS: None HEMATOLOGICAL: None PSYCHIATRY: None NEUROLOGICAL: None Physical examination: VITAL SIGNS: 98.1, 87, 18, 159 and 83, 98% on 2 L upon presentation GENERAL: Sitting up in bed, tired EYES: Pupils equal. Conjunctiva normal. HEENT: External appearance of nose and ears normal, oral cavity grossly normal. NECK: JVD not raised; masses not palpable. HEART: First and second heart sounds are normal; no edema. LUNGS: Respiratory rate normal, diminished breath sounds. ABDOMEN: Soft, nontender, liver spleen not palpable, no masses palpable. PSYCH: Alert and oriented x3; mood and affect normal MUSCULOSKELETAL:No Clubbing/cyanosis;muscles-grossly intact. Severe OA especially in the hands INVESTIGATIONS, reviewed in the clinical context: October 27: White count 7.7 hemoglobin 12.5 platelets 26 sodium 136 BUN 20 creatinine 1.1 EKG tracing personally reviewed by me-normal sinus rhythm Chest x-ray film personally reviewed by me-query right lower lobe atelectasis From last week: October 24: Potassium 4.3 BUN 21 creatinine 1.11 Procalcitonin 0.04 Influenza type A, type B, Legionella antigen, RSV, COVID-19: Not detected Sputum culture: Respiratory argenis Assessment and plan: -COPD FEV1 of 23% with acute exacerbation in a prior smoker. DuoNeb 4 times daily. Intolerance to Breo Ellipta. And Breztri Tolerating Symbicort -Possible right lower lobe atelectasis/collapse. Will discuss with Dr. Ramos -Chronic hypoxic respiratory failure from COPD 2 L of oxygen -Essential hypertension Coreg 6.25 twice daily Cozaar 50 mg nightly. Amlodipine 10 mg a day -Hyperlipidemia Lipitor 10 mg a day -Gastroesophageal reflux disease -Obesity BMI 33.0 Weight loss measures -Full code Discussed with patient daughter at the bedside. Follow-up with pulmonary. No need for antibiotics present time. Add Mucinex humidify oxygen. 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 History of Any Multi-Drug Resistant Organisms: None Reported Past Surgical History: Hysterectomy Past Anesthesia/Blood Transfusion Reactions: No Reported Reaction Smoking Status: Former smoker Medications and Allergies Home Medications Medication Instructions Recorded Confirmed Type Albuterol Nebulized [Ventolin 2.5 mg INHALATION RT-QID PRN 08/01/22 10/28/23 History Nebulized] Albuterol Sulfate [Albuterol 2 puff PO RT-QID PRN 08/01/22 10/28/23 History Sulfate Hfa] Aspirin 81 mg PO DAILY 08/01/22 10/28/23 History Fluticasone Nasal [place] [Flonase 2 spray EA NOSTRIL DAILY 08/01/22 10/28/23 History Nasal [place]] Pantoprazole [Protonix] 40 mg PO DAILY 08/01/22 10/28/23 History amLODIPine [Norvasc] 10 mg PO DAILY 08/01/22 10/28/23 History Atorvastatin [Lipitor] 10 mg PO HS #30 tab 08/02/22 10/28/23 Rx Chlorthalidone 25 mg PO Q48H 10/19/23 10/28/23 History Cholecalciferol (Vitamin D3) 50 mcg PO DAILY 10/19/23 10/28/23 History [Vitamin D3 (50 Mcg = 2000 Iu)] carvediloL [Coreg] 6.25 mg PO BID-W/MEALS 10/19/23 10/28/23 History Fluticasone/Vilanterol [Breo 1 each IH BID #1 each 10/20/23 10/28/23 Rx Ellipta 100-25 Mcg Inhalr] Levofloxacin [Levaquin] 500 mg PO DAILY 5 Days #5 tab 10/20/23 10/28/23 Rx Losartan [Cozaar] 50 mg PO HS #30 tab 10/26/23 10/28/23 Rx Allergies Allergy/AdvReac Type Severity Reaction Status Date / Time cefuroxime Allergy Rash/Hives Verified 10/28/23 08:13 clarithromycin [From Biaxin] Allergy Anaphylaxis, Verified 10/28/23 08:13 hives ibuprofen [From Motrin] Allergy Anaphylaxis, Verified 10/28/23 08:13 hives latex Allergy Rash/Hives Verified 10/28/23 08:13 milk Allergy Rash/Hives Verified 10/28/23 08:13 raspberry Allergy Rash/Hives Verified 10/28/23 08:13 Sulfa (Sulfonamide Allergy Anaphylaxis Verified 10/28/23 08:13 Antibiotics) cephalexin [From Keflex] AdvReac none, per Verified 10/28/23 08:13 patient Penicillins AdvReac Anaphylaxis, Verified 10/28/23 08:13 hives prednisone AdvReac Hallucinati Verified 10/28/23 08:13 ons Physical Exam Vitals: Vital Signs Temp Pulse Pulse Resp BP BP Pulse Ox 10/28/23 15:47 72 10/28/23 12:21 80 10/28/23 12:07 97.3 F L 80 16 138/80 100 10/28/23 12:02 80 10/28/23 08:27 84 10/28/23 08:10 80 10/28/23 07:12 98.2 F 78 16 133/74 100 10/28/23 03:46 97.9 F 83 14 131/73 92 L 10/28/23 02:39 86 20 127/68 99 10/28/23 01:10 85 10/28/23 01:00 81 10/28/23 00:53 22 10/27/23 23:19 98.1 F 87 18 159/83 98 Intake and Output 10/28/23 10/28/23 10/28/23 06:59 14:59 22:59 Other: Voiding Method Toilet Toilet # Voids 2 Weight 63.503 kg 64.5 kg Results CBC & Chem 7: 10/28/23 00:30 10/28/23 00:30 Labs: Abnormal Lab Results - Last 24 Hours (Table) 10/28/23 10/28/23 10/28/23 Range/Units 00:30 00:30 00:35 Lymphocytes # 0.8 L (1.0-4.8) k/uL Sodium 136 L (137-145) mmol/L Carbon Dioxide 31 H (22-30) mmol/L BUN 20 H (7-17) mg/dL Creatinine 1.10 H (0.52-1.04) mg/dL Glucose 101 H (74-99) mg/dL Ur Leukocyte Esterase Moderate H (Negative) Urine WBC 10 H (0-5) /hpf Urine Bacteria Rare H (None) /hpf Thrombosis Risk Factor Assmnt - Choose All That Apply Any of the Below Risk Factors Present?: Yes Other Risk Factors: No Other congenital or acquired thrombophilia - If yes, enter type in comment: No
[2023-10-28] MEDS: LOSARTAN 50 MG TAB PO SCH (20:34)
[2023-10-28] MEDS: ATORVASTATIN 10 MG TAB PO SCH (20:34)
[2023-10-29] MEDS: CHOLECALCIFEROL 25 MCG (1000 IU) TABLET PO SCH (08:33)
[2023-10-29 13:07] VITALS: BP 125/69; RESP 19; TEMP 97.6
--- NOTE | 2023-10-29 15:03 | P.PN ---
Subjective Progress Note Date: 10/29/23 Principal diagnosis: Acute COPD exacerbation Patient is a 77-year-old white female with past medical history significant for very severe COPD with an FEV1 23% of predicted, hypertension, hyperlipidemia, GERD. Her primary care provider is Dr. Wing. [facility] also [facility] Dr. Magaña for management of her very severe COPD. Patient was discharged from the hospital approximately 24 hours ago, and states that she was feeling well on discharge. She was discharged on a Breo Ellipta inhaler, which she says she does not tolerate. It causes a "burning" across her upper back immediately after use. No upper airway edema or stridor. No rashes. She has multiple medication intolerances, including multiple inhalers. She states that she was doing well on the budesonide and formoterol inhalations while inpatient. While at home, she was short of breath. She tried her albuterol nebulizer, without much relief. When EMS arrived, she was not wearing her home oxygen, which she was discharged home with. She is currently in the emergency department, room 22. She is sitting at the edge of the stretcher. She is on 2 L/min nasal cannula. SpO2 is 99%. She continues to have a intermittent cough. She states that she occasionally has sputum production which is yellow tinge. Overall improved sputum purulence. Denies any fevers, chest pain, hemoptysis. On her previous admission she was started on Levaquin which was continued upon discharge. Of note, procalcitonin on previous admission was low at 0.04. Repeat chest x-ray does not show any focal consolidations or evidence of pneumonia. CBC does not show any leukocytosis. BMP unremarkable. Again negative for influenza, RSV, COVID. Afebrile. Nontoxic appearance. Hemodynamically stable. I am seeing this patient in follow-up today 10/29/2023 on the general medical floor for acute COPD exacerbation. Patient is a 77-year-old female with past medical history significant for very severe COPD with an FEV1 23% of predicted. She has multiple medication inhaler intolerances. On her most recent hospital discharge, she was given Breo Ellipta inhaler to take home. She reportedly had intolerances to this medication. She could not use this, and her COPD was back in exacerbation. Currently, she is sitting up at the edge of the bed, on room air, in no acute distress. She states that her breathing is back to baseline. She has been off walking, without any significant respiratory distress. She has been utilizing a Symbicort inhaler. She is going to be discharged on this medication if her medical insurance will cover it. Objective - Vital Signs Vital signs: Vital Signs Temp 97.6 F 10/29/23 12:19 Pulse 70 10/29/23 12:19 Resp 19 10/29/23 12:19 BP 125/69 10/29/23 12:19 Pulse Ox 93 L 10/29/23 12:19 FiO2 Intake & Output 10/28/23 10/29/23 10/29/23 18:59 06:59 18:59 Intake Total 120 Balance 120 Weight 64.5 kg Intake: Oral 120 Other: Voiding Method Toilet Toilet Toilet # Voids 1 3 - Exam GENERAL EXAM: Alert, 77-year-old white female, comfortable in no apparent distress. HEAD: Normocephalic and atraumatic EYES: Normal reaction of pupils, equal size. NOSE: Clear with pink turbinates. THROAT: No erythema or exudates. NECK: No masses, no JVD. CHEST: Barrel chest LUNGS: Equal air entry with markedly diminished lung sounds bilaterally. No wheezing. No crackles, rhonchi or dullness. No conversational dyspnea or accessory muscle use.. Cough is improved. CVS: S1 and S2 normal with no audible murmur, regular rhythm. No extra heart sounds ABDOMEN: No hepatosplenomegaly, active bowel sounds, no guarding or rigidity. SPINE: No scoliosis or deformity SKIN: No rashes CENTRAL NERVOUS SYSTEM: No focal deficits, tone is normal in all 4 extremities. EXTREMITIES: Digital clubbing noted. There is no peripheral edema or cyanosis. Peripheral pulses are intact. - Labs CBC & Chem 7: 10/28/23 00:30 10/28/23 00:30 Assessment and Plan Assessment: Acute COPD exacerbation, patient was discharged from the hospital less than 24 hours ago. Chest x-ray does not show any focal infiltrates or evidence of pneumonia. Procalcitonin was previously low at 0.04. Again negative for influenza, RSV, COVID. During this admission, patient has been placed on Symbicort inhaler along with DuoNebs [id number]. She states that she has been tolerating her Symbicort maintenance inhaler well. She states that her breathing is back to baseline. Very severe chronic obstructive pulmonary disease, with an FEV1 23% of predicted, Patient has multiple inhaler intolerances. She was discharged on Breo Ellipta inhaler, which she reportedly did not tolerate. She was having burning across her back immediately after use. She also has previous reported intolerance to Trelegy and Breztri. It seems the only maintenance inhalers that she can use are Advair or Symbicort, but her insurance will reportedly not Advair. Multiple medication allergies, unfortunately including prednisone Benign essential hypertension Chronic lower extremity edema, improved History of hyperlipidemia History of GERD Obesity, with a BMI of 33 kg/m Plan: Patient has been started on combination of Symbicort inhaler and as needed DuoNebs. She states that her breathing is back to baseline. She also has as needed oxygen at home. Again, chest x-ray was reviewed without any evidence of focal infiltrates or pneumonia. Procalcitonin was low on previous admission. Viral screen negative. Patient will be discharged with Symbicort maintenance i nhaler if her medical insurance will cover this. Insurance would reportedly not cover Advair. She has intolerances to Breo, Trelegy, and Breztri inhalers. From a pulmonary standpoint, patient is cleared for discharge as long as she can obtain a Symbicort inhaler prescription. She will have a hospital follow-up with Dr. Magaña on discharge. I have personally seen and examined the patient, performed the documentation and the assessment and plan as written. Number of minutes spent on the visit:10 Time with Patient: Less than 30
[2023-10-29 16:00] VITALS: PULSE 72
--- NOTE | 2023-10-29 20:15 | P.DS ---
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 Patient just in the hospital from October 18 through October 25. Was admitted with pneumonia and COPD exacerbation. Patient doing well by time of discharge. Patient discharged on 5 days of Levaquin by pulmonary. Patient went went home was feeling well. She started on Breo Ellipta. Did not feel right after taking that same. Decreased appetite. [place] tired. Some shortness of breath. Admitted for the same. Some congested cough. Very little expectoration. No fever no chills. Has been started on Symbicort. Tolerating that better. Per pulmonary she is also had some intolerance to Breztri. Her insurance will not cover Symbicort or Advair. October 28: Doing better. Will be discharged on Symbicort. Other medications to continue. Will also be discharged on DuoNeb. Care was discussed with the patient. Prescriptions were done. Will follow-up with Dr. Magaña in the office. Incentive spirometry Discussion and discharge planning more than 35 minutes Physical examination: VITAL SIGNS: 97.6, 70, 19, 125/69, 93% room air GENERAL: Sitting at the edge of the bed, using nebulizer EYES: Pupils equal. Conjunctiva normal. HEENT: External appearance of nose and ears normal, oral cavity grossly normal. NECK: JVD not raised; masses not palpable. HEART: First and second heart sounds are normal; no edema. LUNGS: Respiratory rate normal, better air entry ABDOMEN: Soft, nontender, liver spleen not palpable, no masses palpable. PSYCH: Alert and oriented x3; mood and affect normal MUSCULOSKELETAL:No Clubbing/cyanosis;muscles-grossly intact. Severe OA especially in the hands INVESTIGATIONS, reviewed in the clinical context: October 27: White count 7.7 hemoglobin 12.5 platelets 26 sodium 136 BUN 20 creatinine 1.1 EKG tracing personally reviewed by me-normal sinus rhythm Chest x-ray film personally reviewed by me-query right lower lobe atelectasis From last week: October 24: Potassium 4.3 BUN 21 creatinine 1.11 Procalcitonin 0.04 Influenza type A, type B, Legionella antigen, RSV, COVID-19: Not detected Sputum culture: Respiratory argenis Assessment and plan: -COPD FEV1 of 23% with acute exacerbation in a prior smoker. Better DuoNeb 4 times daily. Intolerance to Breo Ellipta. And Breztri Discharge on Symbicort and DuoNeb -Possible right lower lobe atelectasis/collapse. Follow-up with Dr. Magaña outpatient -Chronic hypoxic respiratory failure from COPD 2 L of oxygen -Essential hypertension Coreg 6.25 twice daily Cozaar 50 mg nightly. 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 History of Any Multi-Drug Resistant Organisms: None Reported Past Surgical History: Hysterectomy Past Anesthesia/Blood Transfusion Reactions: No Reported Reaction Smoking Status: Former smoker Plan - Discharge Summary Discharge Rx Participant: Yes New Discharge Prescriptions: New guaiFENesin [Mucinex] 600 mg PO TID tab Ipratropium-Albuterol Nebulize [Duoneb 0.5 mg-3 mg/3 ml Soln] 3 ml INHALATION QID #90 ml Budesonide-Formot 160-4.5 Mcg [Symbicort 160-4.5 Mcg Inhaler] 2 puff INHALATION BID #1 each Continue Albuterol Nebulized [Ventolin Nebulized] 2.5 mg INHALATION RT-QID PRN PRN Reason: Shortness Of Breath Pantoprazole [Protonix] 40 mg PO DAILY Aspirin 81 mg PO DAILY amLODIPine [Norvasc] 10 mg PO DAILY carvediloL [Coreg] 6.25 mg PO BID-W/MEALS Chlorthalidone 25 mg PO Q48H Losartan [Cozaar] 50 mg PO HS #30 tab Fluticasone Nasal [place] [Flonase Nasal [place]] 2 spray EA NOSTRIL DAILY Albuterol Sulfate [Albuterol Sulfate Hfa] 2 puff PO RT-QID PRN PRN Reason: Shortness Of Breath Atorvastatin [Lipitor] 10 mg PO HS #30 tab Cholecalciferol (Vitamin D3) [Vitamin D3 (50 Mcg = 2000 Iu)] 50 mcg PO DAILY Discontinued Fluticasone/Vilanterol [Breo Ellipta 100-25 Mcg Inhalr] 1 each IH BID #1 each Levofloxacin [Levaquin] 500 mg PO DAILY 5 Days #5 tab Discharge Medication List Albuterol Nebulized [Ventolin Nebulized] 2.5 mg INHALATION RT-QID PRN 08/01/22 [History] Albuterol Sulfate [Albuterol Sulfate Hfa] 2 puff PO RT-QID PRN 08/01/22 [History] Aspirin 81 mg PO DAILY 08/01/22 [History] Fluticasone Nasal [place] [Flonase Nasal [place]] 2 spray EA NOSTRIL DAILY 08/01/22 [History] Pantoprazole [Protonix] 40 mg PO DAILY 08/01/22 [History] amLODIPine [Norvasc] 10 mg PO DAILY 08/01/22 [History] Atorvastatin [Lipitor] 10 mg PO HS #30 tab 08/02/22 [Rx] Chlorthalidone 25 mg PO Q48H 10/19/23 [History] Cholecalciferol (Vitamin D3) [Vitamin D3 (50 Mcg = 2000 Iu)] 50 mcg PO DAILY 10/19/23 [History] carvediloL [Coreg] 6.25 mg PO BID-W/MEALS 10/19/23 [History] Losartan [Cozaar] 50 mg PO HS #30 tab 10/26/23 [Rx] Budesonide-Formot 160-4.5 Mcg [Symbicort 160-4.5 Mcg Inhaler] 2 puff INHALATION BID #1 each 10/29/23 [Rx] Ipratropium-Albuterol Nebulize [Duoneb 0.5 mg-3 mg/3 ml Soln] 3 ml INHALATION QID #90 ml 10/29/23 [Rx] guaiFENesin [Mucinex] 600 mg PO TID tab 10/29/23 [Rx] Follow up Appointment(s)/Referral(s): Loan Magaña MD [STAFF PHYSICIAN] - 11/09/23 1:30 pm Nitin Wing DO [Primary Care Provider] - 1-2 days (The office will call you with an appointment time and date.) Patient Instructions/Handouts: COPD (Chronic Obstructive Pulmonary Disease) (DC) Discharge Disposition: HOME SELF-CARE
== END 2023-10-29 17:25 | disposition home or self-care (01) ==
LOC: EC 23:14 → 4SSUR 10-28 01:39 → 5NMEDONC 10-28 02:57
PROVIDERS: ADMIT Hospitalist; ATTEND Hospitalist
DX: J44.1 Chronic obstructive pulmonary disease with (acute) exacerbation (principal); J96.11 Chronic respiratory failure with hypoxia; I10 Essential (primary) hypertension; K21.9 Gastro-esophageal reflux disease without esophagitis; E78.5 Hyperlipidemia, unspecified; R60.0 Localized edema; E66.9 Obesity, unspecified; I69.354 Hemiplegia and hemiparesis following cerebral infarction affecting left non-dominant side; Z68.33 Body mass index [BMI] 33.0-33.9, adult; Z87.891 Personal history of nicotine dependence; Z99.81 Dependence on supplemental oxygen; Z79.899 Other long term (current) drug therapy; Z79.82 Long term (current) use of aspirin; Z88.1 Allergy status to other antibiotic agents; Z88.6 Allergy status to analgesic agent; Z88.2 Allergy status to sulfonamides; Z91.040 Latex allergy status; Z88.0 Allergy status to penicillin
CPT/HCPCS: 96372 ×2; 99285; 36415; 94640 ×4; 93005; 80053; 85025; 81001; 87636; 71046; G0378 ×3; J1650 ×2

== ENCOUNTER 2024-05-18 04:01 | Observation (INO) | payer MEDICARE ==
--- NOTE | 2024-05-18 04:36 | ED ---
General Adult HPI - General Chief complaint: Upper Respiratory Infection Stated complaint: Weakness Time Seen by Provider: 05/18/24 04:08 Source: patient Mode of arrival: EMS Limitations: no limitations - History of Present Illness Initial comments: Dictation was produced using [employer] dictation software. please excuse any grammatical, word or spelling errors. Chief Complaint: 78-year-old female with cough History of Present Illness: Patient 78-year-old female presents to the emergency department with cough. She has been having intermittent symptoms for the last couple days. Recently treated for pneumonia by outside production inspector. Patient has history of COPD and asthma. States she woke up this morning coughed up some sputum that was purulent. Patient uses intermittent 2 L nasal cannula O2 at home. She reports feeling weak. Reports chills but denies fevers. Denies any chest pain. Denies any sore throat. The ROS documented in this emergency department record has been reviewed and confirmed by me. Those systems with pertinent positive or negative responses have been documented in the HPI. All other systems are other negative and/or no ncontributory. - Related Data Home Medications Medication Instructions Recorded Confirmed Albuterol Nebulized [Ventolin 2.5 mg INHALATION RT-QID PRN 08/01/22 10/28/23 Nebulized] Albuterol Sulfate [Albuterol 2 puff PO RT-QID PRN 08/01/22 10/28/23 Sulfate Hfa] Aspirin 81 mg PO DAILY 08/01/22 10/28/23 Fluticasone Nasal [place] [Flonase 2 spray EA NOSTRIL DAILY 08/01/22 10/28/23 Nasal [place]] Pantoprazole [Protonix] 40 mg PO DAILY 08/01/22 10/28/23 amLODIPine [Norvasc] 10 mg PO DAILY 08/01/22 10/28/23 Chlorthalidone 25 mg PO Q48H 10/19/23 10/28/23 Cholecalciferol (Vitamin D3) 50 mcg PO DAILY 10/19/23 10/28/23 [Vitamin D3 (50 Mcg = 2000 Iu)] carvediloL [Coreg] 6.25 mg PO BID-W/MEALS 10/19/23 10/28/23 Previous Rx's Medication Instructions Recorded Atorvastatin [Lipitor] 10 mg PO HS #30 tab 08/02/22 Losartan [Cozaar] 50 mg PO HS #30 tab 10/26/23 Budesonide-Formot 160-4.5 Mcg 2 puff INHALATION BID #1 each 10/29/23 [Symbicort 160-4.5 Mcg Inhaler] Ipratropium-Albuterol Nebulize 3 ml INHALATION QID #90 ml 10/29/23 [Duoneb 0.5 mg-3 mg/3 ml Soln] guaiFENesin [Mucinex] 600 mg PO TID tab 10/29/23 Allergies Allergy/AdvReac Type Severity Reaction Status Date / Time cefuroxime Allergy Rash/Hives Verified 10/28/23 08:13 clarithromycin [From Biaxin] Allergy Anaphylaxis, Verified 10/28/23 08:13 hives ibuprofen [From Motrin] Allergy Anaphylaxis, Verified 10/28/23 08:13 hives latex Allergy Rash/Hives Verified 10/28/23 08:13 milk Allergy Rash/Hives Verified 10/28/23 08:13 raspberry Allergy Rash/Hives Verified 10/28/23 08:13 Sulfa (Sulfonamide Allergy Anaphylaxis Verified 10/28/23 08:13 Antibiotics) cephalexin [From Keflex] AdvReac none, per Verified 10/28/23 08:13 patient levofloxacin AdvReac Dyspnea Verified 05/18/24 04:03 Penicillins AdvReac Anaphylaxis, Verified 10/28/23 08:13 hives prednisone AdvReac Hallucinati Verified 10/28/23 08:13 ons Review of Systems ROS Statement: Those systems with pertinent positive or pertinent negative responses have been documented in the HPI. ROS Other: All systems not noted in ROS Statement are negative. 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 Cardiovascular: Heart regular rate and rhythm Chest: Able to complete full sentences, no retractions, no tachypnea Abdomen: abdomen soft, non-tender, non-distended, no organomegaly Musculoskeletal: Pulses present and equal in all extremities, no peripheral edema Motor: no focal deficits noted Neurological: CN II-XII grossly intact, no focal motor or sensory deficits noted Skin: Intact with no visualized rashes Psych: Normal affect and mood Limitations: no limitations Course Vital Signs 05/18/24 05/18/24 05/18/24 04:02 04:30 05:16 Temperature 97.7 F Pulse Rate 93 90 90 Respiratory 18 22 22 Rate Blood Pressure 182/84 149/81 O2 Sat by Pulse 95 97 96 Oximetry Medical Decision Making - Medical Decision Making Was pt. sent in by a medical professional or institution (, PA, SUPERVISOR SPEECH, urgent care, hospital, or prison...) When possible be specific @ -No Did you speak to anyone other than the patient for history (EMS, parent, family, police, friend...)? What history was obtained from this source @ -No Did you review nursing and triage notes (agree or disagree)? Why? @ -I reviewed and agree with nursing and triage notes Were old charts reviewed (outside hosp., previous admission, EMS record, old EKG, old radiological studies, urgent care reports/EKG's, prison records)? Report findings @ -No old charts were reviewed Differential Diagnosis (chest pain, altered mental status, abdominal pain women, abdominal pain men, vaginal bleeding, musculoskeletal, weakness, fever, dyspnea, syncope, headache, dizziness, GI bleed, back pain, seizure, CVA, palpatations, mental health)? @ -Cough, viral URI, pneumonia EKG interpreted by me (3pts min.). @ -None done X-rays interpreted by me (1pt min.). @ -Chest x-ray shows no acute processes CT interpreted by me (1pt min.). @ -No pulmonary infiltrate. CT shows no acute processes. U/S interpreted by me (1pt. min.). @ -None done What testing was considered but not performed or refused? (CT, X-rays, U/S, labs)? Why? @ -None What meds were considered but not given or refused? Why? @ -None Was smoking cessation discussed for >3mins.? @ -No Were there social determinants of health that impacted care today? How? (Homelessness, low income, unemployed, alcoholism, drug addiction, transportation, low edu. Level, literacy, decrease access to med. care, [facility], rehab)? @ -No Was there de-escalation of care discussed even if they declined (Discuss DNR or withdrawal of care, Hospice)? DNR status @ -No What co-morbidities impacted this encounter? (DM, HTN, Smoking, COPD, CAD, Cancer, CVA, ARF, Chemo, Hep., AIDS, mental health diagnosis, sleep apnea, morbid obesity)? @ -COPD Was patient admitted / discharged? Hospital course, mention meds given and route, prescriptions, significant lab abnormalities, going to OR and other pertinent info. @ -78-year-old female presents emergency department for worsening cough recently treated with pneumonia. Patient complains of some mild systemic symptoms however overall is feeling well. Vital signs stable. Physical examination benign. Lung auscultation is clear bilaterally. Laboratory evaluation obtained. CBC, metabolic panel viral testing is negative. Chest x- ray shows no acute processes. Patient did have some sputum sample at the bedside that looked concerning for purulence. CT without contrast was ordered. CT showed no pneumonia or infiltrate. She did complain of worsening shortness of breath. Patient will be admitted observation for COPD exacerbation. Patient will be admitted admitted with consultation to pulmonology. Did you discuss the management of the patient with other professionals (professionals i.e. , PA, SUPERVISOR SPEECH, lab, RT, psych nurse, high school social science teacher, push button switch assembler, teacher, chief human resources officer, caseworker protective services)? Give summary @ -Case discussed with hospitalist for admission Was critical care preformed (if so, how long)? @ -No Undiagnosed new problem with uncertain prognosis? @ -No Drug Therapy requiring intensive monitoring for toxicity (Heparin, Nitro, Insulin, Cardizem)? @ -No Were any procedures done? @ -No Diagnosis/symptom? Acute, or Chronic, or Acute on Chronic? Uncomplicated (without systemic symptoms) or Complicated (systemic symptoms)? @ -COPD exacerbation Side effects of treatment? @ -No Exacerbation, Progression, or Severe Exacerbation? @ -No Poses a threat to life or bodily function? How? (Chest pain, USA, DC, pneumonia, PE, COPD, DKA, ARF, appy, cholecystitis, CVA, Diverticulitis, Homicidal, Suicidal, threat to staff... and all critical care pts) @ -yes - Lab Data Result diagrams: 05/18/24 04:27 05/18/24 04:27 Lab Results 05/18/24 05/18/24 05/18/24 Range/Units 04:06 04:27 04:27 WBC 5.3 (3.8-10.6) k/uL RBC 4.90 (3.80-5.40) m/uL Hgb 13.7 (11.4-16.0) gm/dL Hct 43.2 (34.0-46.0) % MCV 88.1 (80.0-100.0) fL MCH 27.9 (25.0-35.0) pg MCHC 31.7 (31.0-37.0) g/dL RDW 13.2 (11.5-15.5) % Plt Count 186 (150-450) k/uL MPV 8.0 Neutrophils % 77 % Lymphocytes % 12 % Monocytes % 6 % Eosinophils % 3 % Basophils % 0 % Neutrophils # 4.1 (1.3-7.7) k/uL Lymphocytes # 0.7 L (1.0-4.8) k/uL Monocytes # 0.3 (0-1.0) k/uL Eosinophils # 0.2 (0-0.7) k/uL Basophils # 0.0 (0-0.2) k/uL Sodium 140 (137-145) mmol/L Potassium 4.1 (3.5-5.1) mmol/L Chloride 105 (98-107) mmol/L Carbon Dioxide 32 H (22-30) mmol/L Anion Gap 3 mmol/L BUN 16 (7-17) mg/dL Creatinine 1.04 (0.52-1.04) mg/dL Est GFR (CKD-EPI)AfAm 60 (>60 ml/min/1.73 sqM) Est GFR (CKD-EPI)NonAf 52 (>60 ml/min/1.73 sqM) Glucose 102 H (74-99) mg/dL Calcium 9.7 (8.4-10.2) mg/dL Influenza Type A (PCR) Not Detected (Not Detectd) Influenza Type B (PCR) Not Detected (Not Detectd) RSV (PCR) Not Detected (Not Detectd) SARS-CoV-2 (PCR) Not Detected (Not Detectd) Disposition Clinical Impression: COPD exacerbation Disposition: ADMITTED IP TO THIS HOSP Condition: Fair Referrals: Loan Magaña MD [Primary Care Provider] - 1-2 days Decision Time: 07:40
[2024-05-18 04:45] LABS: Basophils % (A) 0 %; Eosinophils # (A) 0.2 k/uL (0-0.7); Eosinophils % (A) 3 %; HCT 43.2 % (34.0-46.0); HGB 13.7 gm/dL (11.4-16.0); Lymphocytes # (A) 0.7 k/uL (1.0-4.8); Lymphocytes % (A) 12 %; MCH 27.9 pg (25.0-35.0); MCHC 31.7 g/dL (31.0-37.0); MCV 88.1 fL (80.0-100.0); Monocytes # (A) 0.3 k/uL (0-1.0); Monocytes % (A) 6 %; Neutrophils # (A) 4.1 k/uL (1.3-7.7); Neutrophils % (A) 77 %; Platelet Count 186 k/uL (150-450); RDW 13.2 % (11.5-15.5); WBC 5.3 k/uL (3.8-10.6)
--- NOTE | 2024-05-18 05:00 | XR ---
EXAMINATION TYPE: XR chest 2V DATE OF EXAM: 05/18/2024 CLINICAL HISTORY: Worsening cough and weakness TECHNIQUE: Frontal and lateral views of the chest are obtained. COMPARISON: Chest x-ray October 28, 2023 FINDINGS: Patchy opacity left lung base remains present. There is no focal air space opacity, pleura l effusion, or pneumothorax seen. The cardiac silhouette size is stable and upper limits of normal. Moderate-sized hiatal hernia is felt present. Exaggerated thoracic curvature on lateral view is redem onstrated. IMPRESSION: Chronic changes with persistent left basilar opacity. No new acute pulmonary infiltrate. [facility], , 05/18/2024 4:58 AM
[2024-05-18 05:01] LABS: African American GFR (CKD) 60 (>60 ml/min/1.73 sqM); Anion Gap 3 mmol/L; Blood Urea Nitrogen 16 mg/dL (7-17); Calcium 9.7 mg/dL (8.4-10.2); Carbon Dioxide 32 mmol/L (22-30); Chloride 105 mmol/L (98-107); Glucose 102 mg/dL (74-99); Non-African American GFR(CKD) 52 (>60 ml/min/1.73 sqM); Potassium 4.1 mmol/L (3.5-5.1); Sodium 140 mmol/L (137-145)
[2024-05-18] MEDS ORDERED: RX INFO: IV CONTRAST WAS GIVEN 1 EACH MISC MISCELLANE PRN (05:28)
--- NOTE | 2024-05-18 07:32 | CT ---
EXAMINATION TYPE: CT chest wo con DATE OF EXAM: 05/18/2024 COMPARISON: None CLINICAL INDICATION: Female, 78 years old with history of cough; PHH, Cough TECHNIQUE: CT scan of the thorax is performed without IV contrast. CT DLP: 261.[address] CTDI: mGy Automated exposure control for dose reduction was used. FINDINGS: LUNGS: The lungs are grossly clear, there is no concerning parenchymal mass or nodule identified. T here is no pleural effusion or pneumothorax seen. The tracheobronchial tree is patent. Hyperinflatio n compatible with COPD. Scattered emphysematous changes seen. MEDIASTINUM: Lack of IV contrast is noted to limit evaluation for mediastinal and especially hilar ad enopathy. There are no definitive greater than 1 cm hilar or mediastinal lymph nodes. There is eviden ce of mild cardiomegaly. Pericardial effusion noted with maximal thickness of 1.1 cm. Moderate fixed hiatal hernia. Coronary artery calcifications noted. OTHER: No additional significant abnormality is seen. IMPRESSION: 1.Hyperinflation compatible with COPD. Scattered emphysematous changes seen. 2. There is evidence of mild cardiomegaly. Pericardial effusion noted with maximal thickness of 1.1 cm. Moderate fixed hiatal hernia. Follow-up recommendations for incidental pulmonary nodules are per [employer] or [employer]. [facility], , 05/18/2024 7:30 AM
[2024-05-18] MEDS ORDERED: NALOXONE 0.4 MG/ML 1 ML VIAL IVP PRN (07:38)
[2024-05-18] MEDS: IPRATROPIUM-ALBUTEROL 3 ML NEB INHALATION SCH (09:11)
[2024-05-18] MEDS: IPRATROPIUM-ALBUTEROL 3 ML NEB INHALATION STA (09:11)
[2024-05-18] MEDS: predniSONE 20 MG TAB PO SCH (09:32)
[2024-05-18] MEDS: DOXYCYCLINE 100 MG CAP PO SCH (09:32)
[2024-05-18] MEDS: ALPRAZolam 0.25 MG TAB PO STA (09:56)
[2024-05-18] MEDS ORDERED: IPRATROPIUM-ALBUTEROL 3 ML NEB INHALATION PRN (11:52)
[2024-05-18] MEDS: SYMBICORT 160-4.5 MCG INHALER INHALATION SCH (12:51)
--- NOTE | 2024-05-18 12:54 | P.CNPUL ---
History of Present Illness Consult date: 05/18/24 Requesting physician: Eric Zhang Reason for consult: dyspnea, cough, COPD Chief complaint: Shortness of breath, cough, congestion History of present illness: This is a 78-year-old female patient with a known history of severe chronic obstructive pulmonary disease with an FEV1 value of 23% of predicted, hypertension, hyperlipidemia, gastroesophageal reflux disease. She presented here to the emergency room early this morning with complaints of increasing shortness of breath, cough and congestion, she states her heart was racing as well. Chest x-ray reveals chronic changes with persistent left basilar opacity. No new acute pulmonary infiltrates. CT scan of the chest revealed hyperinflat ion compatible with COPD. Scattered a for somatic changes. Mild cardiomegaly. White count 5.3. Hemoglobin 13.7. Platelets 186. Sodium 140. Potassium 4.1. Bicarb 32. BUN 16. Creatinine 1.04. Glucose 102. Viral screen is negative. She is seen today in consultation in the emergency department. She is currently sitting up on the stretcher. Awake and alert in no acute distress. Maintaining good O2 saturations in the 90s on 2 L/min per nasal cannula. Afebrile. Hemodynamically stable. Review of Systems REVIEW OF SYSTEMS: CONSTITUTIONAL: Denies any recent significant weight loss or weight gain. EYES: Denies change in vision. EARS, NOSE, MOUTH, THROAT: Denies headaches, denies sore throat. CARDIOVASCULAR: Denies chest pain, palpitations or syncopal episodes. RESPIRATORY: Positive for shortness of breath, cough, congestion no hemoptysis. GASTROINTESTINAL: Denies change in appetite, denies abdominal pain GENITOURINARY: Denies hematuria, denies infections. MUSKULOSKELETAL: Denies pain, denies swelling. INTEGUMENTARY: Denies rash, denies eczema. NEUROLOGICAL: Denies recent memory loss, no recent seizure activity. PSYCHIATRIC: Denies anxiety, denies depression. HEMATOLOGIC/LYMPHATIC: Denies anemia, denies enlarged lymph nodes. 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 History of Any Multi-Drug Resistant Organisms: None Reported Past Surgical History: Hysterectomy Past Anesthesia/Blood Transfusion Reactions: No Reported Reaction Past Psychological History: No Psychological Hx Reported Smoking Status: Former smoker Past Alcohol Use History: None Reported Past Drug Use History: None Reported Medications and Allergies Home Medications Medication Instructions Recorded Confirmed Type Albuterol Sulfate [Albuterol 2 puff INHALATION RT-QID PRN 08/01/22 05/18/24 History Sulfate Hfa] Aspirin 81 mg PO DAILY 08/01/22 05/18/24 History Fluticasone Nasal [place] [Flonase 1 spr EA NOSTRIL DAILY 08/01/22 05/18/24 History Nasal [place]] Pantoprazole [Protonix] 40 mg PO DAILY 08/01/22 05/18/24 History amLODIPine [Norvasc] 10 mg PO DAILY 08/01/22 05/18/24 History Atorvastatin [Lipitor] 10 mg PO HS #30 tab 08/02/22 05/18/24 Rx carvediloL [Coreg] 6.25 mg PO BID 10/19/23 05/18/24 History Losartan [Cozaar] 50 mg PO HS #30 tab 10/26/23 05/18/24 Rx Budesonide-Formot 160-4.5 Mcg 2 puff INHALATION RT-BID 05/18/24 05/18/24 History [Symbicort 160-4.5 Mcg Inhaler] Ipratropium-Albuterol Nebulize 3 ml INHALATION RT-QID 05/18/24 05/18/24 History [Duoneb 0.5 mg-3 mg/3 ml Soln] Allergies Allergy/AdvReac Type Severity Reaction Status Date / Time budesonide Allergy Unknown Verified 05/18/24 09:36 [From AquaMobileztri Aerosphere] cefuroxime Allergy Rash/Hives Verified 05/18/24 09:32 clarithromycin [From Biaxin] Allergy Anaphylaxis, Verified 05/18/24 09:32 hives fluticasone furoate Allergy Unknown Verified 05/18/24 09:36 [From Breo Ellipta] formoterol Allergy Unknown Verified 05/18/24 09:36 [From AquaMobilezSecucloudi Aerosphere] glycopyrrolate Allergy Unknown Verified 05/18/24 09:36 [From AquaMobilezSecucloudi Aerosphere] ibuprofen [From Motrin] Allergy Anaphylaxis, Verified 05/18/24 09:32 hives latex Allergy Rash/Hives Verified 05/18/24 09:32 levofloxacin Allergy Dyspnea Verified 05/18/24 09:32 milk Allergy Rash/Hives Verified 05/18/24 09:32 Penicillins Allergy Anaphylaxis, Verified 05/18/24 09:32 hives raspberry Allergy Rash/Hives Verified 05/18/24 09:32 Sulfa (Sulfonamide Allergy Anaphylaxis Verified 05/18/24 09:32 Antibiotics) vilanterol Allergy Unknown Verified 05/18/24 09:36 [From Breo Ellipta] cephalexin [From Keflex] AdvReac none, per Verified 05/18/24 09:32 patient prednisone AdvReac Hallucinati Verified 05/18/24 09:32 ons Physical Exam Vitals: Vital Signs Temp Pulse Resp BP Pulse Ox 05/18/24 09:22 90 05/18/24 09:11 90 05/18/24 07:37 97.9 F 90 18 131/73 97 05/18/24 05:16 90 22 149/81 96 05/18/24 04:30 90 22 97 05/18/24 04:02 97.7 F 93 18 182/84 95 Intake and Output 05/17/24 05/18/24 05/18/24 22:59 06:59 14:59 Other: Weight 64.41 kg GENERAL EXAM: Alert, pleasant 78-year-old female, on 2 L nasal cannula, fairly comfortable in no apparent distress. HEAD: Normocephalic. EYES: Normal reaction of pupils, equal size. NOSE: Clear with pink turbinates. THROAT: No erythema or exudates. NECK: No masses, no JVD. CHEST: No chest wall deformity. LUNGS: Equal air entry with few scattered rhonchi, end expiratory wheeze. CVS: S1 and S2 normal with no audible murmur, regular rhythm. ABDOMEN: No hepatosplenomegaly, normal bowel sounds, no guarding or rigidity. SPINE: No scoliosis or deformity SKIN: No rashes CENTRAL NERVOUS SYSTEM: No focal deficits, tone is normal in all 4 extremities. EXTREMITIES: There is no peripheral edema. No clubbing, no cyanosis. Peripheral pulses are intact. Results - Laboratory Findings CBC and BMP: 05/18/24 04:27 05/18/24 04:27 Abnormal lab findings: Abnormal Labs 05/18/24 05/18/24 04:27 04:27 Lymphocytes # 0.7 L Carbon Dioxide 32 H Glucose 102 H - Diagnostic Findings Chest x-ray: image reviewed CT scan - chest: image reviewed Assessment and Plan Assessment: Acute hypoxic respiratory failure secondary to an acute exacerbation of chronic obstructive pulmonary disease Severe end-stage chronic obstructive pulmonary disease with an FEV1 value of 23% of predicted Multiple medications/antibiotic allergies Hypertension Hyperlipidemia Gastroesophageal reflux disease Plan: The patient was seen and evaluated Chest x-ray and labs were reviewed Initiated on DuoNeb inhalations, Symbicort, steroids Initiated on doxycycline for now Check a procalcitonin Titrate the FiO2 as tolerated Increase her activity as tolerated We will continue to follow make further recommendations based on her clinical status I have personally seen and examined the patient, performed the documentation and the assessment and plan as written. Number of minutes spent on the visit: 20 Dictation was produced using [employer] dictation software. Please excuse any grammatical, word or spelling errors.
[2024-05-18] MEDS: carvediloL 6.25 MG TAB PO SCH (13:29)
[2024-05-18] MEDS: PANTOPRAZOLE 40 MG TABLET PO SCH (13:29)
[2024-05-18] MEDS: amLODIPine 10 MG TAB PO SCH (13:29)
[2024-05-18] MEDS: ASPIRIN 81 MG PO SCH (13:29)
[2024-05-18] MEDS: FLUTICASONE NASAL 50MCG/SPRAY 16GM BTL EA NOSTRIL SCH (13:33)
--- NOTE | 2024-05-18 15:41 | P.HPIM ---
History of Present Illness H&P Date: 05/18/24 History of Presenting Illness: Patient is a very pleasant 78-year-old female with a past medical history of hypertension, hyperlipidemia, COPD, previous TIA. She presented to the emergency department for worsening shortness of breath, cough, and congestion. Patient reports this initially began over the past week and has progressively worsened over the past few days. She reports overnight her breathing was so severe she was even having chest tightness and palpitations so she came to the emergency department for evaluation. Patient denies having any fevers, headache, lightheadedness, dizziness, nausea, vomiting, or experiencing any numbness/tingling/weakness/swelling in her extremities. Upon arrival to our facility, patient underwent evaluation in the emergency department. Vital signs upon arrival show blood pressure 182/84, heart rate 93, respiratory rate 18, te mp 97.7 F, and SpO2 of 95% on 2 L O2 via nasal cannula. Chest x-ray completed showing chronic changes with persistent left basilar opacity but negative for acute cardiopulmonary process. CTA chest completed showing hyperinflation compatible with COPD with scattered emphysematous changes, evidence of mild cardiomegaly, and pericardial effusion with reported maximal thickness of 1.1 cm, and a moderate fixed hiatal hernia. Labs were completed and reviewed. CBC unremarkable. BMP revealing hypercarbia with bicarb of 32 otherwise normal findings. Blood glucose 102. Procalcitonin negative at 0.03. Influenza A, influenza B, RSV, and COVID PCR were negative. Patient was admitted under our s ervices with consultation to pulmonology. Review of systems: Pertinent positives and negatives as discussed in HPI, a complete review of systems was performed and all other systems are negative. Physical exam: Vital signs reviewed and stable. General: Nontoxic, no distress and appears stated age. Derm: Skin warm and dry, normal coloration for ethnicity. Head: Atraumatic, normocephalic and symmetric. Eyes: EOM's intact, no lid lag, and anicteric sclera Mouth: no lip lesions, mucus membranes moist Cardiovascular: regular rate and rhythm with normal S1S2, no murmur, positive posterior tibial pulses bilaterally, and cap refill < 2 seconds. Lungs: Respirations even, regular, and unlabored on 2 L O2 via nasal cannula. Lungs diminished with soft expiratory wheezes and diffuse rhonchi. Abdominal: soft, nontender to palpation, no guarding, no appreciable organomegaly Ext: ROM intact. No gross muscle atrophy, no edema, no contractures Neuro: Speech clear, face symmetrical and CN II-XII grossly intact with no noted focal neuro deficits Psych: Alert and oriented to person, place, time, and situation. Appropriate and pleasant affect. Assessment and Plan of Care: Acute on chronic respiratory failure with hypoxia and hypercarbia COPD with acute exacerbation -Consult to Pulmonology -Oxygenation to be administered and titrated as needed to maintain SPO2 equal to or greater than 92% -Telemetry monitoring. -Monitor pulse-oximetry -Duonebs scheduled 4 times daily and as needed for SOB and/or wheezing. Continue Symbicort 160-4.5 mcg inhaler 2 puffs twice daily. -Incentive Spirometry -Steroids: Prednisone 40 mg daily. -Antibiotics: Doxycycline 100 mg twice daily. Pericardial effusion -Incidental finding on CT. -Order placed for echocardiogram. -EKG to be completed. -Patient to be placed on telemetry monitoring. Hypertension -Continue daily medication regimen with amlodipine 10 mg daily and losartan 50 mg nightly. Hyperlipidemia -Continue atorvastatin 10 mg nightly. History of TIA/CVA -Continue aspirin 81 mg daily and atorvastatin 10 mg nightly. Data and imaging reviewed: -As stated above in HPI CODE STATUS: Full code DVT prophylaxis: Lovenox Anticipated discharge date: Pending clinical course, likely 24 to [address]: Home Patient was seen independently by Nurse Practitioner. This document was prepared using [employer] dictation software. Please allow for errors in industrial gas fitter helper while rare they do occur. Ronny Holliday NP rendered care for this patient independently, reviewed the findings and plan as documented in the note above and agree with plan. I did not physically speak with or examine the patient on this date. 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 History of Any Multi-Drug Resistant Organisms: None Reported Past Surgical History: Hysterectomy Past Anesthesia/Blood Transfusion Reactions: No Reported Reaction Past Psychological History: No Psychological Hx Reported Smoking Status: Former smoker Past Alcohol Use History: None Reported Past Drug Use History: None Reported Medications and Allergies Home Medications Medication Instructions Recorded Confirmed Type Albuterol Sulfate [Albuterol 2 puff INHALATION RT-QID PRN 08/01/22 05/18/24 History Sulfate Hfa] Aspirin 81 mg PO DAILY 08/01/22 05/18/24 History Fluticasone Nasal Rebecca [Flonase 1 spr EA NOSTRIL DAILY 08/01/22 05/18/24 History Nasal Rebecca] Pantoprazole [Protonix] 40 mg PO DAILY 08/01/22 05/18/24 History amLODIPine [Norvasc] 10 mg PO DAILY 08/01/22 05/18/24 History Atorvastatin [Lipitor] 10 mg PO HS #30 tab 08/02/22 05/18/24 Rx carvediloL [Coreg] 6.25 mg PO BID 10/19/23 05/18/24 History Losartan [Cozaar] 50 mg PO HS #30 tab 10/26/23 05/18/24 Rx Budesonide-Formot 160-4.5 Mcg 2 puff INHALATION RT-BID 05/18/24 05/18/24 History [Symbicort 160-4.5 Mcg Inhaler] Ipratropium-Albuterol Nebulize 3 ml INHALATION RT-QID 05/18/24 05/18/24 History [Duoneb 0.5 mg-3 mg/3 ml Soln] Allergies Allergy/AdvReac Type Severity Reaction Status Date / Time budesonide Allergy Unknown Verified 05/18/24 09:36 [From Active Circlei Aerosphere] cefuroxime Allergy Rash/Hives Verified 05/18/24 09:32 clarithromycin [From Biaxin] Allergy Anaphylaxis, Verified 05/18/24 09:32 hives fluticasone furoate Allergy Unknown Verified 05/18/24 09:36 [From Breo Ellipta] formoterol Allergy Unknown Verified 05/18/24 09:36 [From GI Trackztri Aerosphere] glycopyrrolate Allergy Unknown Verified 05/18/24 09:36 [From Active Circlei Aerosphere] ibuprofen [From Motrin] Allergy Anaphylaxis, Verified 05/18/24 09:32 hives latex Allergy Rash/Hives Verified 05/18/24 09:32 levofloxacin Allergy Dyspnea Verified 05/18/24 09:32 milk Allergy Rash/Hives Verified 05/18/24 09:32 Penicillins Allergy Anaphylaxis, Verified 05/18/24 09:32 hives raspberry Allergy Rash/Hives Verified 05/18/24 09:32 Sulfa (Sulfonamide Allergy Anaphylaxis Verified 05/18/24 09:32 Antibiotics) vilanterol Allergy Unknown Verified 05/18/24 09:36 [From Breo Ellipta] cephalexin [From Keflex] AdvReac none, per Verified 05/18/24 09:32 patient prednisone AdvReac Hallucinati Verified 05/18/24 09:32 ons Physical Exam Vitals: Vital Signs Temp Pulse Resp BP Pulse Ox 05/18/24 09:22 90 05/18/24 09:11 90 05/18/24 07:37 97.9 F 90 18 131/73 97 05/18/24 05:16 90 22 149/81 96 05/18/24 04:30 90 22 97 05/18/24 04:02 97.7 F 93 18 182/84 95 Intake and Output 05/17/24 05/18/24 05/18/24 22:59 06:59 14:59 Other: Weight 64.41 kg Results CBC & Chem 7: 05/18/24 04:27 05/18/24 04:27 Labs: Abnormal Lab Results - Last 24 Hours (Table) 05/18/24 05/18/24 Range/Units 04:27 04:27 Lymphocytes # 0.7 L (1.0-4.8) k/uL Carbon Dioxide 32 H (22-30) mmol/L Glucose 102 H (74-99) mg/dL
--- NOTE | 2024-05-18 18:16 | CA ---
Transthoracic Echo Report Name: Mary Bergman Age: 78 Gender: F : 1945 Exam Date: 05/18/2024 09:32 Exam Location: [facility] Ht (in): 56 Wt (lb): 142 Ordering Physician: Robby uHggins MD Attending/Referring Phys: Cement Block Maker Michelle Rutledge RDCS Procedure CPT: Indications: pericardial effusion Cardiac Hx: Technical Quality: Fair Contrast 1: Total Dose (mL): Contrast 2: Total Dose (mL): MEASUREMENTS (Male / Female) Normal Values 2D ECHO LV Diastolic Diameter PLAX 3.7 cm 4.2 - 5.9 / 3.9 - 5.3 cm LV Systolic Diameter PLAX 2.4 cm IVS Diastolic Thickness 0.8 cm 0.6 - 1.0 / 0.6 - 0.9 cm LVPW Diastolic Thickness 1.1 cm 0.6 - 1.0 / 0.6 - 0.9 cm LV Relative Wall Thickness 0.5 LVOT Diameter 2.2 cm LV Diastolic Volume MOD BP 86.7 cm??? 67 - 155 / 56 - 104 cm??? LV Systolic Volume MOD BP 29.6 cm??? 22 - 58 / 19 - 49 cm??? LV Ejection Fraction MOD BP 65.8 % >= 55 % LV Cardiac Index MOD BP 2840.4 cm???/min???m??? LV Diastolic Volume MOD 4C 79.5 cm??? LV Systolic Volume MOD 4C 28.3 cm??? LV Ejection Fraction MOD 4C 64.4 % LV Cardiac Index MOD 4C 2548.8 cm???/min???m??? LV Diastolic Length 4C 7.6 cm LV Systolic Length 4C 6.3 cm LV Diastolic Volume MOD 2C 89.2 cm??? LV Systolic Volume MOD 2C 26.7 cm??? LV Ejection Fraction MOD 2C 70.1 % LV Cardiac Index MOD 2C 3112.9 cm???/min???m??? LV Diastolic Length 2C 7.1 cm LV Systolic Length 2C 5.3 cm LA Volume 44.4 cm??? 18 - 58 / 22 - 52 cm??? LA Volume Index 27.3 cm???/m??? 16 - 28 cm???/m??? DOPPLER AV Peak Velocity 164.0 cm/s AV Peak Gradient 10.8 mmHg AV Mean Velocity 103.6 cm/s AV Mean Gradient 5.0 mmHg AV Velocity Time Integral 33.7 cm LVOT Peak Velocity 125.9 cm/s LVOT Peak Gradient 6.3 mmHg LVOT Velocity Time Integral 24.1 cm LVOT Stroke Volume 88.3 cm??? LVOT Stroke Volume Index 57.5 ml/m??? LVOT Cardiac Index 4396.1 cm???/min???m??? AV Area Cont Eq vti 2.6 cm??? AV Area Cont Eq pk 2.8 cm??? MV Area PHT 4.8 cm??? Mitral E Point Velocity 63.6 cm/s Mitral A Point Velocity 93.7 cm/s Mitral E to A Ratio 0.7 MV Deceleration Time 156.4 ms TR Peak Velocity 310.2 cm/s TR Peak Gradient 38.5 mmHg Right Atrial Pressure 5.0 mmHg Pulmonary Artery Systolic Pressu 43.5 mmHg Right Ventricular Systolic Press 43.5 mmHg PV Peak Velocity 102.9 cm/s PV Peak Gradient 4.2 mmHg FINDINGS Left Ventricle Left ventricular ejection fraction is estimated at 60-65 %. Mildly increased posterior wall thickness. Left ventricular cavity size normal. No obvious regional wall motion abnormalities. Right Ventricle Normal right ventricular size and function. Mild pulmonary hypertension. Right Atrium Normal right atrial size. Left Atrium Normal left atrial size. Mitral Valve Structurally normal mitral valve. No evidence for mitral valve prolapse. No mitral stenosis. Trace mitral regurgitation. Aortic Valve Trileaflet aortic valve. No aortic valve stenosis or regurgitation. Tricuspid Valve Structurally normal tricuspid valve. No tricuspid stenosis. Mild tricuspid regurgitation. Pulmonic Valve Pulmonic valve not well visualized. No pulmonic stenosis. No pulmonic regurgitation. Pericardium No pericardial effusion. Aorta Aortic annulus normal. CONCLUSIONS LVEF 60% No obvious regional wall motion abnormality No significant valvular dysfunction No pericardial effusion Normal RV size. RVSP 44 mmHg Previewed by: Dr Taj Bean (Electronically Signed) Final Date: 18 May 2024 18:16
[2024-05-18] MEDS ORDERED: SYMBICORT 160-4.5 MCG INHALER INHALATION SCH (20:00)
[2024-05-18] MEDS: LOSARTAN 50 MG TAB PO SCH (20:32)
[2024-05-18] MEDS: ATORVASTATIN 10 MG TAB PO SCH (20:32)
[2024-05-19] MEDS: OXYMETAZOLINE 0.05% NASL SPRAY 1 SPRAY BOTTLE NASAL STA (00:56)
--- NOTE | 2024-05-19 00:59 | CT ---
EXAMINATION TYPE: CT brain wo con, CT facial bones wo con DATE OF EXAM: 05/19/2024 HISTORY: PT WAS TRYING TO GET UP OUT OF BED AND FELL FORWARD TO THE FLOOR HERE IN ER. LAC TO BRIDGE O F NOSE AND BLOODY NOSE. Following trauma. CT DLP: 1167.7 (accession [id number]), 0. COMBINED W/ BRAIN (accession [id number]) mGycm. Automated Expo sure Control for Dose Reduction was Utilized. TECHNIQUE: CT scan of the head and facial bones are performed without contrast. COMPARISON: None. FINDINGS: There is no acute intracranial hemorrhage or midline shift identified. There is mild to m oderate diffuse ventricular and sulcal prominence consistent with diffuse age-related cerebral atroph y. Atrophy is most prominent superiorly. There is mild low-attenuation in the periventricular white m atter most likely consistent with chronic small vessel ischemic change in patient of this age. The c alvarium is intact. The mandible is intact. Some motion artifact is noted Temporomandibular joints are maintained bilater ally. The zygomatic arches are intact. There is acute fracture deformity through the nasal bridge wit h associated soft tissue swelling. The orbital floors and rivers are intact. Left-sided aphakia is see n. Intraconal fat is preserved bilaterally. The pterygoid plates are intact. The paranasal sinuses ar e grossly clear. Lack of teeth in the maxilla is noted. IMPRESSION: 1. No acute intracranial hemorrhage or midline shift. 2. Acute comminuted slightly displaced nasal bridge fracture. No additional acute displaced facial b one fracture. [facility], , 05/19/2024 12:56 AM
--- NOTE | 2024-05-19 04:00 | P.EN ---
A- team: Indication: Mechanical Fall Arrived on Scene to find: Patient with epistaxis with a laceration on her nose. Case was discussed with the RNs who noted that they heard a loud thud and found the patient on the ground face first. The patient notes that she was trying to walk to the restroom when she tripped over her own feet and fell forward hitting her nose on the ground. She denied losing consciousness. Does report some pain at her nose at time of interview and had no additional complaints. Denied experiencing headache, visual disturbances, weakness, numbness, tingling. Vital signs reviewed and wre unremarkable. Patient seen and examined at bedside. General: [non toxic], [no distress], [appears at stated age] Derm: [warm], [dry], nasal bridge laceration 3 cm Head: [atraumatic], [normocephalic], [symmetric] Eyes: [EOMI], [no lid lag], [anicteric sclera] Mouth: [no lip lesion], [mucus membranes moist] Cardiovascular: [S1S2 reg], [no murmur], [positive posterior tibial pulse bilateral], Lungs: [CTA bilateral], [no rhonchi, no rales] , [no accessory muscle use] Abdominal: [soft], [ nontender to palpation], [no guarding], [no appreciable organomegaly] Ext: [no gross muscle atrophy], [no edema], [no contractures] Neuro: [ CN II-XI grossly intact], [no focal neuro deficits] Psych: [Alert], [oriented], [appropriate affect] Assessment: Mechanical fall with nasal trauma with laceration Plan: CT Facial bones and Brain ordered Fall precautions Afrin nasal spray used with gauze used for pressure A Total of 35 minutes of critical care time was spent on the complex care of this patient.
[2024-05-19] MEDS: ACETAMINOPHEN TAB 325 MG TAB PO PRN (05:54)
[2024-05-19] MEDS: ENOXAPARIN 40 MG/0.4 ML SYRINGE SQ SCH (08:18)
--- NOTE | 2024-05-19 13:03 | P.PN ---
Subjective Progress Note Date: 05/19/24 This is a 78-year-old female patient with a known history of severe chronic obstructive pulmonary disease with an FEV1 value of 23% of predicted, hypertension, hyperlipidemia, gastroesophageal reflux disease. She presented here to the emergency room early this morning with complaints of increasing shortness of breath, cough and congestion, she states her heart was racing as well. Chest x-ray reveals chronic changes with persistent left basilar opacity. No new acute pulmonary infiltrates. CT scan of the chest revealed hyperinflation compatible with COPD. Scattered a for somatic changes. Mild car diomegaly. White count 5.3. Hemoglobin 13.7. Platelets 186. Sodium 140. Potassium 4.1. Bicarb 32. BUN 16. Creatinine 1.04. Glucose 102. Viral screen is negative. She is seen today in consultation in the emergency department. She is currently sitting up on the stretcher. Awake and alert in no acute distress. Maintaining good O2 saturations in the 90s on 2 L/min per nasal cannula. Afebrile. Hemodynamically stable. The patient is seen today May 19, 2024 in follow-up in the emergency department. She is currently up on the stretcher. Awake and alert in no acute distress. Unfortunately she was up to go to the bathroom last night and tripped and fell hitting her face on the ground. Denied loss of consciousness. CT scan of the brain revealed no acute intracranial hemorrhage or midline shift. CT scan of the face revealed acute comminuted slightly displaced nasal bridge fracture. Currently, she denies any headache, blurred vision or dizziness. A public safety police is at the bedside. Her procalcitonin was negative at 0.03. She is continued on DuoNeb inhalations and Symbicort. Empiric antibiotics in the form of doxycycline. Objective - Vital Signs Vital signs: Vital Signs Temp 97.8 F 05/19/24 12:00 Pulse 88 05/19/24 12:45 Resp 18 05/19/24 12:31 BP 149/99 05/19/24 12:31 Pulse Ox 97 05/19/24 12:31 FiO2 Intake & Output 05/18/24 05/19/24 05/19/24 18:59 06:59 18:59 Intake Total 480 Balance 480 Intake: Oral 480 Other: # Voids 2 - Exam GENERAL EXAM: Alert, 78-year-old female, on 2 L nasal cannula, comfortable in no apparent distress. HEAD: Normocephalic. Areas of ecchymosis/abrasion above her right eye and across the bridge of her nose. EYES: Normal reaction of pupils, equal size. NOSE: Clear with pink turbinates. THROAT: No erythema or exudates. NECK: No masses, no JVD. CHEST: No chest wall deformity. LUNGS: Equal air entry with few scattered rhonchi, end expiratory wheeze. CVS: S1 and S2 normal with no audible murmur, regular rhythm. ABDOMEN: No hepatosplenomegaly, normal bowel sounds, no guarding or rigidity. SPINE: No scoliosis or deformity SKIN: No rashes CENTRAL NERVOUS SYSTEM: No focal deficits, tone is normal in all 4 extremities. EXTREMITIES: There is no peripheral edema. No clubbing, no cyanosis. Peripheral pulses are intact. - Labs CBC & Chem 7: 05/18/24 04:27 05/18/24 04:27 Assessment and Plan Assessment: Acute hypoxic respiratory failure secondary to an acute exacerbation of chronic obstructive pulmonary disease Fall without loss of consciousness, new nasal fracture. No intracranial hemorrhage or midline shift on CT Severe end-stage chronic obstructive pulmonary disease with an FEV1 value of 23% of predicted Multiple medications/antibiotic allergies Hypertension Hyperlipidemia Gastroesophageal reflux disease Plan: The patient was seen and evaluated Imaging and medications reviewed Continued on DuoNeb inhalations, Symbicort Declines to take steroids Procalcitonin negative Discontinue doxycycline Cleared for discharge from the pulmonary standpoint Continue her home pulmonary medications/oxygen Follow-up in our office in 1 week This patient was seen independently by the pulmonary nurse practitioner addressing pulmonary issues I have personally seen and examined the patient, performed the documentation and the assessment and plan as written. Number of minutes spent on the visit: 24 Dictation was produced using [employer] software. Please excuse any grammatical, word or spelling errors.
--- NOTE | 2024-05-19 14:38 | P.PN ---
Subjective Progress Note Date: 05/19/24 Hospital Course: Patient is a very pleasant 78-year-old female with a past medical history of hypertension, hyperlipidemia, COPD, previous TIA. She presented to the emergency department for worsening shortness of breath, cough, and congestion. Patient reports this initially began over the past week and has progressively worsened over the past few days. She reports overnight her breathing was so severe she was even having chest tightness and palpitations so she came to the emergency department for evaluation. Patient denies having any fevers, headache, lightheadedness, dizziness, nausea, vomiting, or experiencing any numbness/tingling/weakness/swelling in her extremities. Upon arrival to our facility, patient underwent evaluation in the emergency department. Vital signs upon arrival show blood pressure 182/84, heart rate 93, respiratory rate 18, temp 97.7 F, and SpO2 of 95% on 2 L O2 via nasal cannula. Chest x-ray completed showing chronic changes with persistent left basilar opacity but negative for acute cardiopulmonary process. CTA chest completed showing hyperinflation compatible with COPD with scattered emphysematous changes, eviden ce of mild cardiomegaly, and pericardial effusion with reported maximal thickness of 1.1 cm, and a moderate fixed hiatal hernia. Labs were completed and reviewed. CBC unremarkable. BMP revealing hypercarbia with bicarb of 32 otherwise normal findings. Blood glucose 102. Procalcitonin negative at 0.03. Influenza A, influenza B, RSV, and COVID PCR were negative. Patient was admitted under our services with consultation to pulmonology. Physical exam: Patient seen and fully evaluated at bedside this morning. Patient had a reported trip and fall overnight stating she tripped and fell over her own 2 feet landing face first on the ground. Patient reports mild to moderate pain to bridge of nose. She also reports mild pain to right knee. She denies headache, lightheadedness, dizziness or any other complaints. Vital signs reviewed and stable. General: Nontoxic, no distress and appears stated age. Derm: Skin warm and dry, normal coloration for ethnicity. Head: Atraumatic, normocephalic and symmetric. Eyes: EOM's intact, no lid lag, and anicteric sclera Mouth: no lip lesions, mucus membranes moist Cardiovascular: regular rate and rhythm with normal S1S2, no murmur, positive posterior tibial pulses bilaterally, and cap refill < 2 seconds. Lungs: Respirations even, regular, and unlabored on 2 L O2 via nasal cannula. Lungs diminished with soft expiratory wheezes and diffuse rhonchi. Abdominal: soft, nontender to palpation, no guarding, no appreciable organomegaly Ext: ROM intact. No gross muscle atrophy, no edema, no contractures Neuro: Speech clear, face symmetrical and CN II-XII grossly intact with no noted focal neuro deficits Psych: Alert and oriented to person, place, time, and situation. Appropriate and pleasant affect. Assessment and Plan of Care: Acute on chronic respiratory failure with hypoxia and hypercarbia COPD with acute exacerbation -Consult to Pulmonology, discussed case with pulmonary PIZZA DELIVERY DRIVER. -Oxygenation to be administered and titrated as needed to maintain SPO2 equal to or greater than 92% -Telemetry monitoring. -Monitor pulse-oximetry -Duonebs scheduled 4 times daily and as needed for SOB and/or wheezing. Contin ue Symbicort 160-4.5 mcg inhaler 2 puffs twice daily. -Incentive Spirometry -Steroids: Prednisone 40 mg daily. Fall with facial injury, comminuted slightly displaced nasal bridge fracture. Right Knee pain -Patient reported tripping and falling hitting face on the ground. CT head and face was completed. -CT brain was negative for acute intracranial process. -CT face showing acute comminuted slightly displaced nasal bridge fracture. -Consult placed to ENT physician for evaluation. -Patient placed on cephalexin 500 mg 4 times daily. -Order also placed for x-ray right knee. -Fall Precautions placed. -Consult to PT/OT secondary to fall and current right knee pain. Pericardial effusion reported on CT, ruled out via echocardiogram. -Pleural effusion was reported as incidental finding on CT, echocardiogram was completed showing a preserved EF of 60% with no pericardial effusion. Hypertension -Continue daily medication regimen with amlodipine 10 mg daily and losartan 50 mg nightly. Hyperlipidemia -Continue atorvastatin 10 mg nightly. History of TIA/CVA -Continue aspirin 81 mg daily and atorvastatin 10 mg nightly. Data and imaging reviewed: -CT brain was negative for acute intracranial process. -CT face showing acute comminuted slightly displaced nasal bridge fracture. -Vital signs reviewed. Blood pressure 153/86, heart rate 83, respiratory rate 16, temp 98.8 F, and SpO2 of 95% on room air. CODE STATUS: Full code DVT prophylaxis: Lovenox Anticipated discharge date: Pending clinical course, likely tomorrow morning Anticipated discharge place: Home Patient was seen independently by Nurse Practitioner. This document was prepared using [employer] dictation software. Please allow for errors in guide dog trainer while rare they do occur. Ronny Holliday NP rendered care for this patient independently, reviewed the findings and plan as documented in the note above and agree with plan. I did not physically speak with or examine the patient on this date. Objective - Vital Signs Vital signs: Vital Signs Temp 98.2 F 05/19/24 07:45 Pulse 100 05/19/24 08:15 Resp 20 05/19/24 08:15 BP 132/70 05/19/24 08:15 Pulse Ox 94 L 05/19/24 08:15 FiO2 Intake & Output 05/18/24 05/19/24 05/19/24 18:59 06:59 18:59 Intake Total 480 Balance 480 Intake: Oral 480 Other: # Voids 2 - Labs CBC & Chem 7: 05/18/24 04:27 05/18/24 04:27
[2024-05-19] MEDS: CEPHALEXIN 500 MG CAP PO SCH (14:58)
--- NOTE | 2024-05-19 16:02 | XR ---
EXAMINATION TYPE: XR knee complete RT DATE OF EXAM: 05/19/2024 3:53 PM COMPARISON: None CLINICAL INDICATION: Female, 78 years old with history of fall, right knee pain and bruising; [facility] TECHNIQUE: XR knee complete RT XX views submitted. FINDINGS: No evidence of any acute osseous pathology, soft tissue swelling, or joint effusion is no shannon. Soft tissue swelling to the subcutaneous tissues anterior to the knee. IMPRESSION: 1. Soft tissue swelling without acute osseous pathology. 2. Mild tricompartmental osteoarthritic changes. [facility], , 05/19/2024 4:00 PM
[2024-05-20] MEDS ORDERED: BACITRACIN OINT 1 EACH PACKET TOPICAL PRN (07:00)
[2024-05-20 08:42] LABS: HCT 40.9 % (37.2-46.3); HGB 12.9 g/dL (12.0-15.0); MCHC 31.5 g/dL (32.0-37.0); MCV 88.9 FL (80.0-97.0); Mean Platelet Volume 11.3 FL (9.5-12.2); NRBC Per 100 WBC 0 X 10*3/uL (0.00-0.01); Platelet Count 194 X 10*3/uL (140-440); WBC 6.51 X 10*3/uL (4.50-10.00)
[2024-05-20 08:53] LABS: BUN/Creat Ratio 16.45 Ratio (12.00-20.00); Blood Urea Nitrogen 18.1 mg/dL (9.0-27.0); Calcium 9.8 mg/dL (8.7-10.3); Carbon Dioxide 26.7 mmol/L (21.6-31.8); Chloride 103 mmol/L (96-109); Glucose 93 mg/dL (70-110); Magnesium 1.9 mg/dL (1.5-2.4); Potassium 4.4 mmol/L (3.5-5.5); Sodium 141 mmol/L (135-145)
--- NOTE | 2024-05-20 10:30 | P.DS ---
Providers Date of admission: 05/18/24 07:38 Expected date of discharge: 05/20/24 Attending physician: Eric Zhang MD Consults: 05/18/24 07:38 Consult Physician Routine Consulting Provider: Karl Milian Consult Reason/Comments: copd exacerbation Do you want consulting provider notified?: Yes 05/19/24 08:24 Consult Physician Routine Consulting Provider: Brad Centeno Consult Reason/Comments: fall in hospital resulting in comminuted displaced nasal bone fx Do you want consulting provider notified?: Yes Primary care physician: Loan Magaña [facility] Course: Discharge Diagnosis: Acute on chronic respiratory failure with hypoxia and hypercarbia COPD with acute exacerbation Fall with facial injury, comminuted slightly displaced nasal bridge fracture. CT face showing acute comminuted slightly displaced nasal bridge fracture. Consult was placed to ENT for evaluation. Dr. Centeno, ENT stated slightly displaced nasal bone fracture will be evaluated in office in 1 week to allow for swelling to go down. Patient was updated on recommendations from ENT. Patient to continue with antibiotic cephalexin 500 mg 4 times daily (cephalexin chosen secondary to multiple allergies to antibiotics) until follow-up with ENT physician. Instructed to avoid use of Flonase nasal spray until evaluated by ENT physician and cleared to resume. Right Knee pain. X-ray negative for acute osseous abnormality showing soft tissue swelling and mild tricompartmental osteoarthritic changes Pericardial effusion reported on CT, ruled out via echocardiogram. Pleural effusion was reported as incidental finding on CT, echocardiogram was completed showing a preserved EF of 60% with no pericardial effusion. Hypertension Continue daily medication regimen with amlodipine 10 mg daily and losartan 50 mg nightly. Hyperlipidemia Continue atorvastatin 10 mg nightly. History of TIA/CVA Continue aspirin 81 mg daily and atorvastatin 10 mg nightly. Hospital Course: Patient is a very pleasant 78-year-old female with a past medical history of hypertension, hyperlipidemia, COPD, previous TIA. She presented to the emergency department for worsening shortness of breath, cough, and congestion. Patient reports this initially began over the past week and has progressively wo rsened over the past few days. She reports overnight her breathing was so severe she was even having chest tightness and palpitations so she came to the emergency department for evaluation. Patient denies having any fevers, headache, lightheadedness, dizziness, nausea, vomiting, or experiencing any numbness/tingling/weakness/swelling in her extremities. Upon arrival to our facility, patient underwent evaluation in the emergency department. Vital signs upon arrival show blood pressure 182/84, heart rate 93, respiratory rate 18, temp 97.7 F, and SpO2 of 95% on 2 L O2 via nasal cannula. Chest x-ray completed showing chronic changes with persistent left basilar opacity but negative for acute cardiopulmonary process. CTA chest completed showing hyperinflation compatible with COPD with scattered emphysematous changes, evidence of mild cardiomegaly, and pericardial effusion with reported maximal thickness of 1.1 cm, and a moderate fixed hiatal hernia. Labs were completed and reviewed. CBC unremarkable. BMP revealing hypercarbia with bicarb of 32 otherwise normal findings. Blood glucose 102. Procalcitonin negative at 0.03. Influenza A, influenza B, RSV, and COVID PCR were negative. Patient was admitted under our services with consultation to pulmonology. 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 She was immediately evaluated by overnight hospitalist and underwent CT head and face. CT brain was negative for acute intracranial process. CT face showing acute comminuted slightly displaced nasal bridge fracture. Consult was placed to ENT for evaluation. Dr. Centeno, ENT stated slightly displaced nasal bone fracture will be evaluated in office in 1 week to allow for swelling to go down. Patient was updated on recommendations from ENT. Patient to continue with antibiotic cephalexin 500 mg 4 times daily (cephalexin chosen secondary to multiple allergies to antibiotics) until follow- up with ENT physician. X-ray right knee also completed secondary to patient's reports of pain and small area of bruising/swelling. X-ray negative for acute osseous abnormality showing soft tissue swelling and mild tricompartmental osteoarthritic changes. Patient condition improving. She is on room air at 94%. She has been cleared by pulmonology for discharge and is medically optimized for discharge at this time. Patient to follow-up outpatient with PCP in 1 to 2 days and with ENT in 1 week. Physical exam: Vital signs reviewed and stable. General: Nontoxic, no distress and appears stated age. Derm: Skin warm and dry, normal coloration for ethnicity. Head: Atraumatic, normocephalic and symmetric. Eyes: EOM's intact, no lid lag, and anicteric sclera Mouth: no lip lesions, mucus membranes moist Cardiovascular: regular rate and rhythm with normal S1S2, no murmur, positive posterior tibial pulses bilaterally, and cap refill < 2 seconds. Lungs: Respirations even, regular, and unlabored on 2 L O2 via nasal cannula. Lungs diminished with soft expiratory wheezes and diffuse rhonchi. Abdominal: soft, nontender to palpation, no guarding, no appreciable organomega ly Ext: ROM intact. No gross muscle atrophy, no edema, no contractures Neuro: Speech clear, face symmetrical and CN II-XII grossly intact with no noted focal neuro deficits Psych: Alert and oriented to person, place, time, and situation. Appropriate and pleasant affect. A total of 35 minutes of time were spent preparing this complex discharge summary. Pt was discharged on 05/20/2024 at 10:28 AM Patient was seen independently by Nurse Practitioner. This document was prepared using [employer] dictation software. Please allow for errors in stretching press operator while rare they do occur. Ronny Holliday NP rendered care for this patient independently, reviewed the findings and plan as documented in the note above. I did not physically speak with or examine the patient on this date. Patient Condition at Discharge: Stable Plan - Discharge Summary Discharge Rx Participant: Yes New Discharge Prescriptions: New Cephalexin [Keflex] 500 mg PO QID 9 Days #36 cap methylPREDNISolone Dose Pack [Medrol Dose Pack] 4 mg PO DIRECTED #21 tab Continue Pantoprazole [Protonix] 40 mg PO DAILY Aspirin 81 mg PO DAILY amLODIPine [Norvasc] 10 mg PO DAILY carvediloL [Coreg] 6.25 mg PO BID Losartan [Cozaar] 50 mg PO HS #30 tab Ipratropium-Albuterol Nebulize [Duoneb 0.5 mg-3 mg/3 ml Soln] 3 ml INHALATION RT-QID Budesonide-Formot 160-4.5 Mcg [Symbicort 160-4.5 Mcg Inhaler] 2 puff INHALATION RT-BID Albuterol Sulfate [Albuterol Sulfate Hfa] 2 puff INHALATION RT-QID PRN PRN Reason: Shortness Of Breath Atorvastatin [Lipitor] 10 mg PO HS #30 tab No Action Fluticasone Nasal Kerens [Flonase Nasal Kerens] 1 spr EA NOSTRIL DAILY Discharge Medication List Albuterol Sulfate [Albuterol Sulfate Hfa] 2 puff INHALATION RT-QID PRN 08/01/22 [History] Aspirin 81 mg PO DAILY 08/01/22 [History] Fluticasone Nasal Kerens [Flonase Nasal Kerens] 1 spr EA NOSTRIL DAILY 08/01/22 [History] Pantoprazole [Protonix] 40 mg PO DAILY 08/01/22 [History] amLODIPine [Norvasc] 10 mg PO DAILY 08/01/22 [History] Atorvastatin [Lipitor] 10 mg PO HS #30 tab 08/02/22 [Rx] carvediloL [Coreg] 6.25 mg PO BID 10/19/23 [History] Losartan [Cozaar] 50 mg PO HS #30 tab 10/26/23 [Rx] Budesonide-Formot 160-4.5 Mcg [Symbicort 160-4.5 Mcg Inhaler] 2 puff INHALATION RT-BID 05/18/24 [History] Ipratropium-Albuterol Nebulize [Duoneb 0.5 mg-3 mg/3 ml Soln] 3 ml INHALATION RT-QID 05/18/24 [History] Cephalexin [Keflex] 500 mg PO QID 9 Days #36 cap 05/20/24 [Rx] methylPREDNISolone Dose Pack [Medrol Dose Pack] 4 mg PO DIRECTED #21 tab 05/20/24 [Rx] Follow up Appointment(s)/Referral(s): Loan Magaña MD [Primary Care Provider] - 06/06/24 1:30 pm Brad Centeno MD [STAFF PHYSICIAN] - 1 Week (Need to call office and schedule appointment per Dr. Centeno. ) Patient Instructions/Handouts: Nasal Fracture (DC), COPD (Chronic Obstructive Pulmonary Disease) (DC) Activity/Diet/Wound Care/Special Instructions: Activity: As tolerated. Take breaks as needed. Diet: Heart healthy and carb consistent diet. Avoid salts, or foods with hidden salts such as canned or boxed foods and frozen dinners. Extra salt makes your heart work harder and traps the fluid in your body for longer. Special Instructions: Take all of your medications as directed and remember to keep all of your doctor's appointments and follow-up as needed. HOLD use of Flonase until evaluated by ENT physician and cleared to resume use. Thank you for allowing us to participate in your care, it was truly a pleasure having you for our patient!!! Discharge Disposition: HOME SELF-CARE
--- NOTE | 2024-05-20 13:02 | P.PN ---
Subjective Progress Note Date: 05/20/24 Principal diagnosis: Chest congestion. This is a 78-year-old female patient with a known history of severe chronic obstructive pulmonary disease with an FEV1 value of 23% of predicted, hypertension, hyperlipidemia, gastroesophageal reflux disease. She presented here to the emergency room early this morning with complaints of increasing shortness of breath, cough and congestion, she states her heart was racing as well. Chest x-ray reveals chronic changes with persistent left basilar opacity. No new acute pulmonary infiltrates. CT scan of the chest revealed hyperinflation compatible with COPD. Scattered a for somatic changes. Mild cardiomegaly. White count 5.3. Hemoglobin 13.7. Platelets 186. Sodium 140. Potassium 4.1. Bicarb 32. BUN 16. Creatinine 1.04. Glucose 102. Viral screen is negative. She is seen today in consultation in the emergency department. She is currently sitting up on the stretcher. Awake and alert in no acute distress. Maintaining good O2 saturations in the 90s on 2 L/min per nasal cannula. Afebrile. Hemodynamically stable. The patient is seen today May 19, 2024 in follow-up in the emergency department. She is currently up on the stretcher. Awake and alert in no acute distress. Unfortunately she was up to go to the bathroom last night and tripped and fell hitting her face on the ground. Denied loss of consciousness. CT scan of the brain revealed no acute intracranial hemorrhage or midline shift. CT scan of the face revealed acute comminuted slightly displaced nasal bridge fracture. Currently, she denies any headache, blurred vision or dizziness. A process safety engineering technologist is at the bedside. Her procalcitonin was negative at 0.03. She is continued on DuoNeb inhalations and Symbicort. Empiric antibiotics in the form of doxycycline. Progress note dated May 20, 2024. 78-year-old female admitted with a COPD exacerbation. The patient is seen in room 455. She has significant facial ecchymoses, secondary to a recent fall in the emergency department. She apparently got out of bed to use the bathroom, and fell. Clinically, the patient appears to be doing reasonably well. She still is coughing and producing some phlegm. She is on room air. No IV fluids. Labs today include a white count of 6.51, hemoglobin 12.9, hematocrit 40.9, normal platelet count. Electrolyte profile is essentially normal. Procalcitonin level was 0.03. Viral screen was negative. Objective - Vital Signs Vital signs: Vital Signs Temp 99 F 05/20/24 07:31 Pulse 84 05/20/24 12:27 Resp 18 05/20/24 07:31 BP 166/93 05/20/24 07:31 Pulse Ox 93 L 05/20/24 09:12 FiO2 Intake & Output 05/19/24 05/20/24 05/20/24 18:59 06:59 18:59 Intake Total 960 Balance 960 Weight 64.41 kg Intake: Oral 960 Other: Voiding Method Toilet Toilet # Voids 4 - Exam No acute distress, oriented 3. Currently on room air. HEENT examination is grossly unremarkable. Mucous membranes are moist. No oral lesions. Facial ecchymoses and bruising is noted from recent fall. Neck supple. Full range of motion. No adenopathy thyromegaly or neck vein distention. Cardiovascular examination reveals regular rhythm rate. S1-S2 normal. No S3 or S4. No discernible murmur noted. Lungs reveal mild scattered rhonchi. No wheezes or crackles. Breath sounds e qual. Abdomen soft bowel sounds are heard. No masses or tenderness. Extremities are intact. No cyanosis clubbing or edema. Skin is without rash or lesion. Neurologic examination is brief but nonfocal. - Labs CBC & Chem 7: 05/20/24 05:43 05/20/24 05:43 Labs: Abnormal Lab Results - Last 24 Hours (Table) 05/20/24 05/20/24 Range/Units 05:43 05:43 MCHC 31.5 L (32.0-37.0) g/dL Est GFR (CKD-EPI) 52 L (>=60) Assessment and Plan Assessment: Acute hypoxic respiratory failure secondary to an acute exacerbation of chronic obstructive pulmonary disease. Fall without loss of consciousness, new nasal fracture. Severe end-stage chronic obstructive pulmonary disease with an FEV1 value of 23% of predicted. Multiple medications/antibiotic allergies. Hypertension. Hyperlipidemia. Gastroesophageal reflux disease. Plan: Plan dated May 20, 2024. The patient's procalcitonin level was normal. Antibiotics were discontinued. The patient is stable from the pulmonary standpoint, and apparently is being discharged by the primary service. The patient should follow-up with my partner in the office. Additional recommendations and suggestions are forthcoming. Should she not be discharged, we will continue to follow. Prognosis is thought to be generally good. Time with Patient: Less than 30
[2024-05-20 14:42] VITALS: BP 134/74; PULSE 92; RESP 17; TEMP 97.8
[2024-05-20] MEDS ORDERED: CEPHALEXIN 500 MG CAP PO SCH (16:00)
== END 2024-05-20 16:41 | disposition home or self-care (01) ==
LOC: EC 04:01 → 4SSUR 07:38
PROVIDERS: ADMIT Internal Medicine; ATTEND Internal Medicine
DX: J44.1 Chronic obstructive pulmonary disease with (acute) exacerbation (principal); J96.21 Acute and chronic respiratory failure with hypoxia; J96.22 Acute and chronic respiratory failure with hypercapnia; I31.39 Other pericardial effusion (noninflammatory); S02.2XXB Fracture of nasal bones, initial encounter for open fracture; W01.0XXA Fall on same level from slipping, tripping and stumbling without subsequent striking against object, initial encounter; M25.561 Pain in right knee; I10 Essential (primary) hypertension; E78.5 Hyperlipidemia, unspecified; K21.9 Gastro-esophageal reflux disease without esophagitis; I69.354 Hemiplegia and hemiparesis following cerebral infarction affecting left non-dominant side; Z87.891 Personal history of nicotine dependence; Z79.51 Long term (current) use of inhaled steroids; Z79.82 Long term (current) use of aspirin; Z79.899 Other long term (current) drug therapy; Z88.1 Allergy status to other antibiotic agents; Z88.6 Allergy status to analgesic agent; Z88.2 Allergy status to sulfonamides; Z91.040 Latex allergy status; Z88.0 Allergy status to penicillin
CPT/HCPCS: 96372; 99291; 36415; 94640 ×4; 94760; 93005; 93306; 80048 ×2; 83735; 85025; 85027; 84145; 87636; 73562; 71046; 70486; 70450; 71250; G0378 ×3; J1650

== ENCOUNTER 2024-05-25 08:30 | Emergency (ER) | payer MEDICARE ==
[2024-05-25] MEDS: OXYMETAZOLINE 0.05% NASL SPRAY 1 SPRAY BOTTLE NASAL STA (08:49)
--- NOTE | 2024-05-25 08:54 | ED ---
General Adult HPI - General Chief complaint: ENT Stated complaint: Nose bleed Time Seen by Provider: 05/25/24 08:32 Source: patient, EMS, RN notes reviewed, old records reviewed Mode of arrival: EMS Limitations: no limitations - History of Present Illness Initial comments: 78 female presents with nosebleed. Patient was transferred from [facility] with persistent nosebleed. Patient developed initial bleed after bending forward. She had a fall several days prior with known nasal fracture. She had been seen by ENT, Dr. Centeno yesterday. Patient denies anticoagulation. - Related Data Home Medications Medication Instructions Recorded Confirmed Albuterol Sulfate [Albuterol 2 puff INHALATION RT-QID PRN 08/01/22 05/25/24 Sulfate Hfa] Aspirin 81 mg PO DAILY 08/01/22 05/25/24 Fluticasone Nasal [place] [Flonase 1 spr EA NOSTRIL DAILY 08/01/22 05/25/24 Nasal [place]] Pantoprazole [Protonix] 40 mg PO DAILY 08/01/22 05/25/24 amLODIPine [Norvasc] 10 mg PO DAILY 08/01/22 05/25/24 carvediloL [Coreg] 6.25 mg PO BID 10/19/23 05/25/24 Budesonide-Formot 160-4.5 Mcg 2 puff INHALATION RT-BID 05/18/24 05/25/24 [Symbicort 160-4.5 Mcg Inhaler] Ipratropium-Albuterol Nebulize 3 ml INHALATION RT-QID 05/18/24 05/25/24 [Duoneb 0.5 mg-3 mg/3 ml Soln] methylPREDNISolone Dose Pack See Taper PO DIRECTED 05/25/24 05/25/24 [Medrol Dose Pack] Previous Rx's Medication Instructions Recorded Atorvastatin [Lipitor] 10 mg PO HS #30 tab 08/02/22 Losartan [Cozaar] 50 mg PO HS #30 tab 10/26/23 Cephalexin [Keflex] 500 mg PO QID 9 Days #36 cap 05/20/24 Cephalexin [Keflex] 500 mg PO Q12HR #10 cap 05/25/24 Allergies Allergy/AdvReac Type Severity Reaction Status Date / Time budesonide Allergy Unknown Verified 05/25/24 10:14 [From Breztri Aerosphere] cefuroxime Allergy Rash/Hives Verified 05/25/24 10:14 clarithromycin [From Biaxin] Allergy Anaphylaxis, Verified 05/25/24 10:14 hives fluticasone furoate Allergy Unknown Verified 05/25/24 10:14 [From Breo Ellipta] formoterol Allergy Unknown Verified 05/25/24 10:14 [From Breztri Aerosphere] glycopyrrolate Allergy Unknown Verified 05/25/24 10:14 [From Breztri Aerosphere] ibuprofen [From Motrin] Allergy Anaphylaxis, Verified 05/25/24 10:14 hives latex Allergy Rash/Hives Verified 05/25/24 10:14 levofloxacin Allergy Dyspnea Verified 05/25/24 10:14 milk Allergy Rash/Hives Verified 05/25/24 10:14 Penicillins Allergy Anaphylaxis, Verified 05/25/24 10:14 hives raspberry Allergy Rash/Hives Verified 05/25/24 10:14 Sulfa (Sulfonamide Allergy Anaphylaxis Verified 05/25/24 10:14 Antibiotics) vilanterol Allergy Unknown Verified 05/25/24 10:14 [From Breo Ellipta] cephalexin [From Keflex] AdvReac none, per Verified 05/25/24 10:14 patient prednisone AdvReac Hallucinati Verified 05/25/24 10:14 ons Review of Systems ROS Statement: Those systems with pertinent positive or pertinent negative responses have been documented in the HPI. ROS Other: All systems not noted in ROS Statement are negative. 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 History of Any Multi-Drug Resistant Organisms: None Reported Past Surgical History: Hysterectomy Past Anesthesia/Blood Transfusion Reactions: No Reported Reaction Past Psychological History: No Psychological Hx Reported Smoking Status: Former smoker Past Alcohol Use History: None Reported Past Drug Use History: None Reported General Exam Limitations: no limitations General appearance: alert, in no apparent distress Head exam: Present: atraumatic, normocephalic Eye exam: Present: normal appearance, PERRL ENT exam: Present: other (Ecchymosis, persistent venous oozing from bilateral naris.) Respiratory exam: Present: normal lung sounds bilaterally. Absent: respiratory distress, wheezes Cardiovascular Exam: Present: regular rate, normal rhythm GI/Abdominal exam: Present: soft. Absent: distended, tenderness Neurological exam: Present: alert, oriented X3 Psychiatric exam: Present: normal affect, normal mood Skin exam: Present: warm, dry, intact Course Vital Signs 05/25/24 05/25/24 08:34 09:31 Temperature 97.6 F Pulse Rate 98 92 Respiratory 19 18 Rate Blood Pressure 175/94 148/85 O2 Sat by Pulse 98 98 Oximetry - Reevaluation(s) Reevaluation #1: 05/25/24 09:[address] Centeno who is familiar with the patient. Will follow as an outpatient Procedures - Procedures Initial comment: Time: 846, date 05/25/2024, insertion of Merisel nasal packing. Patient agreeable with procedure, verbal consent given, 10 cm Merisel placed in the right nare. Patient tolerated procedure well, no complications. Medical Decision Making - Medical Decision Making Was pt. sent in by a medical professional or institution (, PA, HEAD SUGAR REPROCESS OPERATOR, urgent care, hospital, or skilled nursing...) When possible be specific @ -Transfer from [facility] for nosebleed Did you speak to anyone other than the patient for history (EMS, parent, family, police, friend...)? What history was obtained from this source @ -No Did you review nursing and triage notes (agree or disagree)? Why? @ -I reviewed and agree with nursing and triage notes Were old charts reviewed (outside hosp., previous admission, EMS record, old EKG, old radiological studies, urgent care reports/EKG's, skilled nursing records)? Report findings @ -No old charts were reviewed Differential Diagnosis: nosebleed EKG interpreted by me (3pts min.). @ -As above X-rays interpreted by me (1pt min.). @ -None done CT interpreted by me (1pt min.). @ -None done U/S interpreted by me (1pt. min.). @ -None done What testing was considered but not performed or refused? (CT, X-rays, U/S, labs)? Why? @ -None What meds were considered but not given or refused? Why? @ -None Did you discuss the management of the patient with other professionals (professionals i.e. , PA, HEAD SUGAR REPROCESS OPERATOR, lab, RT, psych nurse, social science professor, muck boss, teacher, corporate development officer, manager of case)? Give summary @Case discussed multiple occasions with Dr. Centeno, outpatient follow-up has been arranged. Was smoking cessation discussed for >3mins.? @ -No Was critical care preformed (if so, how long)? @ -No Were there social determinants of health that impacted care today? How? (Homelessness, low income, unemployed, alcoholism, drug addiction, transportation, low edu. Level, literacy, decrease access to med. care, halfway, rehab)? @ -No Was there de-escalation of care discussed even if they declined (Discuss DNR or withdrawal of care, Hospice)? DNR status @ -No What co-morbidities impacted this encounter? (DM, HTN, Smoking, COPD, CAD, Cancer, CVA, ARF, Chemo, Hep., AIDS, mental health diagnosis, sleep apnea, morbid obesity)? @ -None Was patient admitted / discharged? Hospital course, mention meds given and route, prescriptions, significant lab abnormalities, going to OR and other pe rtinent info. @ 78-year-old female with nosebleed. Patient had come in with a short Rhino Rocket on the right with persistent bleeding. This was removed, Afrin was administered and a 10 cm Merisel was placed in the right nostril. Patient was observed for 2 hours with bleeding controlled. She was instructed to not blow her nose at all and to sneeze through her mouth if necessary. She was presc ribed prophylactic antibiotics given the nasal packing and had follow-up arranged with ENT, . Undiagnosed new problem with uncertain prognosis? @ -No Drug Therapy requiring intensive monitoring for toxicity (Heparin, Nitro, Insulin, Cardizem)? @ -No Were any procedures done? @ -Yes, nasal packing Diagnosis/symptom? @ -[Nosebleed Acute, or Chronic, or Acute on Chronic? @ -Acute Uncomplicated (without systemic symptoms) or Complicated (systemic symptoms)? @ -Default Side effects of treatment? @ -No Exacerbation, Progression, or Severe Exacerbation? @ -No Poses a threat to life or bodily function? How? (Chest pain, [place], [place], pneumonia, PE, COPD, DKA, ARF, appy, cholecystitis, CVA, Diverticulitis, Homicidal, Suicidal, threat to staff... and all critical care pts) @ -No Disposition Clinical Impression: Nasal bleeding Disposition: HOME SELF-CARE Condition: Fair Instructions (If sedation given, give patient instructions): Nosebleed (ED) Additional Instructions: Do not blow your nose. Sneeze through your mouth. Use a humidifier in your bedroom. Prescriptions: Cephalexin [Keflex] 500 mg PO Q12HR #10 cap Is patient prescribed a controlled substance at d/c from ED?: No Referrals: Loan Magaña MD [Primary Care Provider] - 1-2 days Brad Centeno MD [STAFF PHYSICIAN] - 1-2 days Time of Disposition: 10:35
[2024-05-25] MEDS: ACETAMINOPHEN TAB 500 MG TAB PO STA (09:32)
[2024-05-25] MEDS: amLODIPine 10 MG TAB PO SCH (11:05)
[2024-05-25] MEDS: carvediloL 6.25 MG TAB PO SCH (11:05)
[2024-05-25] MEDS: IPRATROPIUM-ALBUTEROL 3 ML NEB INHALATION STA (11:11)
[2024-05-25 11:22] VITALS: RESP 18
[2024-05-25 12:34] VITALS: BP 121/56; PULSE 80; TEMP 98.6
== END 2024-05-25 12:35 | disposition home or self-care (01) ==
LOC: EC 08:30
DX: S00.33XA Contusion of nose, initial encounter (principal); R04.0 Epistaxis; Z88.0 Allergy status to penicillin; Z88.1 Allergy status to other antibiotic agents; Z88.2 Allergy status to sulfonamides; Z88.6 Allergy status to analgesic agent; Z88.8 Allergy status to other drugs, medicaments and biological substances; Z91.040 Latex allergy status; Z91.011 Allergy to milk products; Z91.018 Allergy to other foods; Z87.891 Personal history of nicotine dependence; Z86.73 Personal history of transient ischemic attack (TIA), and cerebral infarction without residual deficits; W19.XXXA Unspecified fall, initial encounter
CPT/HCPCS: 30903; 94640; 99284

== ENCOUNTER 2024-05-26 17:32 | Emergency (ER) | payer MEDICARE ==
[2024-05-26 17:37] VITALS: TEMP 98.2
--- NOTE | 2024-05-26 18:10 | ED ---
ENT HPI - General Chief complaint: ENT Stated complaint: nose bleed Time Seen by Provider: 05/26/24 17:38 Source: patient, family Mode of arrival: ambulatory Limitations: no limitations - History of Present Illness Initial comments: 78-year-old female presenting with chief complaint of dislodged nasal packing. Patient had a Merisel placed in the ER yesterday. She was transferred here from [facility] for persistent nosebleed and had a short Rhino Rocket in place but had persistent bleeding. Afrin and Merisel were applied and there was resolution of the bleeding. Patient states that her packing has been falling out. She states that she has had some dripping around the Merisel but is unsure if it is from active bleeding or compression of the Merisel. She wants the packing checked and is unsure if it needs to be changed - Related Data Home Medications Medication Instructions Recorded Confirmed Albuterol Sulfate [Albuterol 2 puff INHALATION RT-QID PRN 08/01/22 05/25/24 Sulfate Hfa] Aspirin 81 mg PO DAILY 08/01/22 05/25/24 Fluticasone Nasal [place] [Flonase 1 spr EA NOSTRIL DAILY 08/01/22 05/25/24 Nasal [place]] Pantoprazole [Protonix] 40 mg PO DAILY 08/01/22 05/25/24 amLODIPine [Norvasc] 10 mg PO DAILY 08/01/22 05/25/24 carvediloL [Coreg] 6.25 mg PO BID 10/19/23 05/25/24 Budesonide-Formot 160-4.5 Mcg 2 puff INHALATION RT-BID 05/18/24 05/25/24 [Symbicort 160-4.5 Mcg Inhaler] Ipratropium-Albuterol Nebulize 3 ml INHALATION RT-QID 05/18/24 05/25/24 [Duoneb 0.5 mg-3 mg/3 ml Soln] methylPREDNISolone Dose Pack See Taper PO DIRECTED 05/25/24 05/25/24 [Medrol Dose Pack] Previous Rx's Medication Instructions Recorded Atorvastatin [Lipitor] 10 mg PO HS #30 tab 08/02/22 Losartan [Cozaar] 50 mg PO HS #30 tab 10/26/23 Cephalexin [Keflex] 500 mg PO QID 9 Days #36 cap 05/20/24 Cephalexin [Keflex] 500 mg PO Q12HR #10 cap 05/25/24 Allergies Allergy/AdvReac Type Severity Reaction Status Date / Time budesonide Allergy Unknown Verified 05/25/24 10:14 [From Breztri Aerosphere] cefuroxime Allergy Rash/Hives Verified 05/25/24 10:14 clarithromycin [From Biaxin] Allergy Anaphylaxis, Verified 05/25/24 10:14 hives fluticasone furoate Allergy Unknown Verified 05/25/24 10:14 [From Breo Ellipta] formoterol Allergy Unknown Verified 05/25/24 10:14 [From Breztri Aerosphere] glycopyrrolate Allergy Unknown Verified 05/25/24 10:14 [From Breztri Aerosphere] ibuprofen [From Motrin] Allergy Anaphylaxis, Verified 05/25/24 10:14 hives latex Allergy Rash/Hives Verified 05/25/24 10:14 levofloxacin Allergy Dyspnea Verified 05/25/24 10:14 milk Allergy Rash/Hives Verified 05/25/24 10:14 Penicillins Allergy Anaphylaxis, Verified 05/25/24 10:14 hives raspberry Allergy Rash/Hives Verified 05/25/24 10:14 Sulfa (Sulfonamide Allergy Anaphylaxis Verified 05/25/24 10:14 Antibiotics) vilanterol Allergy Unknown Verified 05/25/24 10:14 [From Breo Ellipta] cephalexin [From Keflex] AdvReac none, per Verified 05/25/24 10:14 patient prednisone AdvReac Hallucinati Verified 05/25/24 10:14 ons Review of Systems ROS Statement: Those systems with pertinent positive or pertinent negative responses have been documented in the HPI. ROS Other: All systems not noted in ROS Statement are negative. 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 History of Any Multi-Drug Resistant Organisms: None Reported Past Surgical History: Hysterectomy Past Anesthesia/Blood Transfusion Reactions: No Reported Reaction Past Psychological History: No Psychological Hx Reported Smoking Status: Former smoker Past Alcohol Use History: None Reported Past Drug Use History: None Reported General Exam Limitations: no limitations General appearance: alert, in no apparent distress Head exam: Present: atraumatic, normocephalic, normal inspection Eye exam: Present: normal appearance, EOMI ENT exam: Present: other (No active bleeding from the right nostril) Neck exam: Present: normal inspection. Absent: meningismus Respiratory exam: Absent: respiratory distress Cardiovascular Exam: Present: regular rate Neurological exam: Present: alert, oriented X3 Psychiatric exam: Present: normal affect, normal mood Skin exam: Present: warm, dry Course Vital Signs 05/26/24 05/26/24 17:34 19:01 Temperature 98.2 F Pulse Rate 97 88 Respiratory 20 18 Rate Blood Pressure 141/71 126/69 O2 Sat by Pulse 96 94 L Oximetry Medical Decision Making - Medical Decision Making Was pt. sent in by a medical professional or institution (MARKUS Chen, CAN INSPECTOR, urgent care, hospital, or retirement...) When possible be specific @ -No Did you speak to anyone other than the patient for history (EMS, parent, family, police, friend...)? What history was obtained from this source @ -No Did you review nursing and triage notes (agree or disagree)? Why? @ -I reviewed and agree with nursing and triage notes Were old charts reviewed (outside hosp., previous admission, EMS record, old EKG, old radiological studies, urgent care reports/EKG's, retirement records)? Report findings @ -Reviewed the patient's last visit Differential Diagnosis (chest pain, altered mental status, abdominal pain women, abdominal pain men, vaginal bleeding, weakness, fever, dyspnea, syncope, headache, dizziness, GI bleed, back pain, seizure, CVA, palpatations, mental health, musculoskeletal)? @ -Differential includes complicated nosebleed versus leaking from merocel EKG interpreted by me (3pts min.). @ -As above X-rays interpreted by me (1pt min.). @ -None done CT interpreted by me (1pt min.). @ -None done U/S interpreted by me (1pt. min.). @ -None done What testing was considered but not performed or refused? (CT, X-rays, U/S, labs)? Why? @ -None What meds were considered but not given or refused? Why? @ -None Did you discuss the management of the patient with other professionals (professionals i.e. MARKUS Chen, CAN INSPECTOR, lab, RT, psych nurse, nephrology social worker, brush stainer, teacher, surface to air weapons officer, dependency case manager)? Give summary @ -No Was smoking cessation discussed for >3mins.? @ -No Was critical care preformed (if so, how long)? @ -No Were there social determinants of health that impacted care today? How? (Homelessness, low income, unemployed, alcoholism, drug addiction, transportation, low edu. Level, literacy, decrease access to med. care, shelter, rehab)? @ -No Was there de-escalation of care discussed even if they declined (Discuss DNR or withdrawal of care, Hospice)? DNR status @ -No What co-morbidities impacted this encounter? (DM, HTN, Smoking, COPD, CAD, Cancer, CVA, ARF, Chemo, Hep., AIDS, mental health diagnosis, sleep apnea, morbid obesity)? @ -None Was patient admitted / discharged? Hospital course, mention meds given and route, prescriptions, significant lab abnormalities, going to OR and other pertinent info. @ -78-year-old female with chief complaint of dislodging of her nasal packing that was placed yesterday morning. Nasal packing is removed and the patient is observed. She had no recurrence of bleeding while here in the department. I see no bleeding on exam. Patient is instructed to keep her follow-up appointments for her nasal fracture. Return if any bleeding returns. Follow-up with PCP. Report back to ER with any new or worsening symptoms. Discussed return parameters and answered all questions. Patient conveyed verbal underst anding and agreed to the plan. I discussed this case in detail with my attending Dr. Gale Undiagnosed new problem with uncertain prognosis? @ -No Drug Therapy requiring intensive monitoring for toxicity (Heparin, Nitro, Insulin, Cardizem)? @ -No Were any procedures done? @ -No Diagnosis/symptom? @ -Nasal packing removal Acute, or Chronic, or Acute on Chronic? @ -Acute Uncomplicated (without systemic symptoms) or Complicated (systemic symptoms)? @ -Uncomplicated Side effects of treatment? @ -No Exacerbation, Progression, or Severe Exacerbation? @ -No Poses a threat to life or bodily function? How? (Chest pain, [place], [place], pneumonia, PE, COPD, DKA, ARF, appy, cholecystitis, CVA, Diverticulitis, Homicidal, Suicidal, threat to staff... and all critical care pts) @ -No Disposition Clinical Impression: Encounter for removal of nasal pack Disposition: HOME SELF-CARE Condition: Good Instructions (If sedation given, give patient instructions): Nosebleed (ED) Additional Instructions: Follow-up with PCP and ENT. Report back to ER with any new or worsening symptoms. Is patient prescribed a controlled substance at d/c from ED?: No Referrals: Loan Magaña MD [STAFF PHYSICIAN] - 1-2 days Time of Disposition: 18:39
[2024-05-26 19:03] VITALS: BP 126/69; PULSE 88; RESP 18
== END 2024-05-26 19:03 | disposition home or self-care (01) ==
LOC: EC 17:32
DX: Z48.00 Encounter for change or removal of nonsurgical wound dressing (principal); Z86.73 Personal history of transient ischemic attack (TIA), and cerebral infarction without residual deficits; Z87.891 Personal history of nicotine dependence; Z88.0 Allergy status to penicillin; Z88.1 Allergy status to other antibiotic agents; Z88.2 Allergy status to sulfonamides; Z88.6 Allergy status to analgesic agent; Z88.8 Allergy status to other drugs, medicaments and biological substances; Z91.040 Latex allergy status; Z91.011 Allergy to milk products
CPT/HCPCS: 99282

== ENCOUNTER → 2024-10-14 | Outpatient (CLI) | payer MEDICARE ==
--- NOTE | 2024-10-14 13:32 | MM ---
Reason for Exam: Screening (asymptomatic). Last mammogram was performed 1 year(s) and 4 month(s) ago. Patient History: Menarche at age 11. First Full-Term at age 22. Hysterectomy at age 34. Postmenopausal. Hormonal Contraceptives for 12 years from age 21 until age 34. 03/24/2005, Benign Core Biopsy on the left side. Risk Values: Faby 5 year model risk: 2.0%. NCI Lifetime model risk: 3.9%. Prior Study Comparison: 06/19/2021 Bilateral Screening Mammogram, [facility]. 06/23/2022 Bilateral MG 3D screening mammo w/cad, [facility]. 06/24/2023 Bilateral MG 3D screening mammo w/cad, [facility]. Tissue Density: The breasts are heterogeneously dense, which may obscure small masses. Findings: Analyzed By CAD. There is no suspicious group of microcalcifications or new suspicious mass in either breast. Stable biopsy clip in the upper outer quadrant of the left breast. Benign calcifications. Overall Assessment: Benign, BI-RAD 2 Management: Screening Mammogram of both breasts in 1 year. . Patient should continue monthly self-breast exams. A clinical breast exam by your physician is recommended on an annual basis. This exam should not preclude additional follow-up of suspicious palpable abnormalities. Note on Faby scores and lifetime risk: 1. A Faby score greater than 3% is considered moderate risk. If this is the case, consider specialist referral to assess eligibility for a risk reducing agent. 2. If overall lifetime risk for the development of breast cancer is 20% or higher, the patient may qualify for future screening with alternating mammogram and breast MRI. [facility], , 10/14/2024 1:29 PM. Electronically signed and approved by: Wm Eduardo M.D. Radiologis
== END | disposition home or self-care (01) ==
LOC: RADMAMWWP 12:58
PROVIDERS: ATTEND Family Medicine
DX: Z12.31 Encounter for screening mammogram for malignant neoplasm of breast (principal); R92.333 Mammographic heterogeneous density, bilateral breasts; Z78.0 Asymptomatic menopausal state; Z92.0 Personal history of contraception
CPT/HCPCS: 77063; 77067